=== PATIENT | male | born 1950 | race Caucasian/White ===

== ENCOUNTER → 2020-09-12 | Outpatient (CLI) | payer OTHER, BC | LOC: GIR 16:21 | PROVIDERS: ATTEND Nurse Practitioner Family | DX: U07.1 COVID-19 (principal) | CPT/HCPCS: 84145; 87635 ==

== ENCOUNTER → 2020-09-26 | Outpatient (CLI) | payer OTHER, MEDICARE ==
[~2020-09-26] MED LIST: ACET-2267 PO; ASCO-262 PO; ASPI-1238 PO; ASPI-789 PO; CHOL10007 PO; FLUT1DIS26 INH; FURO20TA4 PO; HYDR200T46 PO; LOSA100T57 PO; METO50TA7 PO; RT-ALBUINH IH; TMSL.4C PO
== END ==
LOC: LABNPT 14:41
PROVIDERS: ATTEND Nurse Practitioner Family
DX: Z01.89 Encounter for other specified special examinations (principal)
CPT/HCPCS: 84145

== ENCOUNTER 2020-09-27 11:21 | Inpatient (IN) | payer BC, MEDICARE ==
[~2020-09-27] VITALS: Ht 182 cm; Wt 158.0 kg
[2020-09-27] MEDS ORDERED: ALPRAZolam 0.25 MG (XANAX) TAB PO PRN (11:30)
[2020-09-27] MEDS ORDERED: diphenhydrAMINE 25 MG TAB (BENADRYL) PO PRN (11:30)
[2020-09-27] MEDS ORDERED: LOPERAMIDE 2 MG (IMODIUM) TABLET PO PRN (11:30)
[2020-09-27] MEDS ORDERED: DOCUSATE SODIUM 100 MG (COLACE) CAP PO PRN (11:30)
[2020-09-27] MEDS ORDERED: ENOXAPARIN 100 MG/1 ML (LOVENOX) SYR SC SCH (11:30)
[2020-09-27] MEDS ORDERED: MEROPENEM 1,000 MG in WATER (STERILE) FOR INJECTION 20 ML IV SCH (11:30)
[2020-09-27] MEDS ORDERED: VANCOMYCIN INJECTION 0.1 MG in NS (IVPB) 250 ML IV SCH (11:30)
[2020-09-27] MEDS ORDERED: MELATONIN 3 MG TABLET PO PRN (11:30)
[2020-09-27] MEDS ORDERED: CALCIUM CARBONATE 500 MG (TUMS) TAB.CHEW PO PRN (11:30)
[2020-09-27] MEDS ORDERED: ACETAMINOPHEN 500 MG TAB (TYLENOL) PO PRN (11:30)
[2020-09-27] MEDS ORDERED: HYDROcodone/APAP 5 MG/325 MG (LORTAB) TAB PO PRN (11:30)
[2020-09-27] MEDS ORDERED: ONDANSETRON 4 MG/2 ML (SDV) Z0FRAN IVP PRN (11:30)
[2020-09-27] MEDS ORDERED: VANCOMYCIN 2000 MG/NS 500 ML IVPB IV NR ×2 (13:00)
--- NOTE | 2020-09-27 13:58 | History & Physical ---
History of Present Illness HPI/Chief Complaint CC: Impending respiratory failure [place] [facility] [place] HPI: This is a 69yoWM clinic patient of Dr Baumann who presented to [facility] [place] on [place]26[place] with dyspnea and reaccumulation of right sided pleural effusion. He had been hospitalized from 09/12-09/16 for COVID PNA had completed his abx and had done well for a few days after right sided pleural effusion drained by thoracentesis by Dr Thornton of 1.5 liters. He did not need O2 at [place] after he completed COVID-19 treatments. He did not previously wear O2 or use a CPAP although i t appears he has SATISH on my initial evaluation. Dr Phipps was consulted for thoracentesis after CT scan revealed multi-lobar PNA with severe large right sided pleural effusion. Unable to dion fluid spot with USG and considering his tachypnea and hypoxia and hypercapcnia he was assessed to need higher level of care and was transferred to [facility]. Dr Phipps was able to drain the effusion and obtain 3.5 liters out and ABG after that revealed improved lung expansion and will be on trial of biPAP. Patient maintained on Meropenem and Vanc empirically due to suspicion of HAP and effusion infection. Lovenox given BID vs Eliquis. No PE on CT angiogram. Source: patient Exam Limitations: clinical condition Date Seen 09/27/20 Time Seen by a Provider: 14:00 Attending Physician Stefany Hopson DO PCP No,Local Physician Referring Physician Date of Admission Sep 27, 2020 at 12:16 Home Medications & Allergies Home Medications Reviewed patient Home Medication Reconciliation performed by pharmacy medication reconciliations maintenance technician 2nd shift and/or nursing. Patients Allergies have been reviewed. Allergies Allergies Coded Allergies No Allergy Information Available (Hcsexcspgh87/24/20) Past Ambblyr-Gtxzvu-Hkywlg Hx Past Med/Social Hx: Reviewed Nursing Past Med/Soc Hx, Reviewed and Corrections made Patient Social History Marrital Status: Employed/Student: retired Alcohol Use: Denies Use Smoking Status: Never a Smoker Past Medical History Cardiac: High Cholesterol, Hypertension Genitourinary: Benign Prostatic Hyperpl SLE Review of Systems Constitutional: see HPI Respiratory: dyspnea on exertion, short of breath Physical Exam Physical Exam Vital Signs Vital Signs - First Documented 09/27/20 09/27/20 09/27/20 13:52 14:00 16:00 Temp 36.1 Pulse 98 Resp 22 B/P (MAP) 169/105 (126) Pulse Ox 92 O2 Delivery High Flow N/C O2 Flow Rate 10.00 FiO2 40 Capillary Refill : Height, Weight, BMI Height: '" Weight: lbs. oz. kg; 49.72 BMI Method: General Appearance: Anxious, Chronically ill, Mild Distress, Obese Respiratory: Accessory Muscle Use, Decreased Breath Sounds, Rales Cardiovascular: Regular Rate, Rhythm Neurologic/Psychiatric: Alert, Oriented x3, No Motor/Sensory Deficits, Normal Mood/Affect Results Results/Procedures Labs Laboratory Tests 09/27/20 15:20 09/28/20 04:00 Patient resulted labs reviewed. Assessment/Plan Admission Diagnosis Assessment: Impending respiratory failure from multi-lobar PNA residual form COVID-19 admitted 09/12/20-09/16/20 s/p thoracentesis for large right sided pleural effusion 3.[address] Phipps Presumed SATISH Hypoxia Hypercapnia Obesity HTN SLE BPH Plan: Await effusion fluid Cx Monitor O2 BiPAP Abx Lovenox Admission Status: Inpatient Order (span 2 midnights) Reason for Inpatient Admission: resp failure Diagnosis/Problems Diagnosis/Problems (1) Respiratory insufficiency (2) COVID-19 (3) Obesity (4) Hypoxia (5) Hypercapnia (6) Pleural effusion on right (7) SLE (systemic lupus erythematosus related syndrome) (8) Hypertension STEFANY HOPSON DO Sep 27, 2020 13:58
[2020-09-27] MEDS: NS IV 1000 ML 1,000 ML IV SCH (14:04)
[2020-09-27] MEDS: MEROPENEM 500 MG/SWFI 10 ML IV PUSH IV SCH ×4 (14:05→17:25)
[2020-09-27 14:25] VITALS: BP 169/105
[2020-09-27 14:29] VITALS: BP 143/97
[2020-09-27 14:31] LABS: ABG BASE EXCESS -3.2 MMOL/L (-2.5-2.5); ABG OXYGEN SATURATION 94 % (94-100); ABG PCO2 45 MMHG (35-45); ABG PO2 73 MMHG (79-93); ABG TCO2 23.7 MMOL/L (21.0-31.0)
[2020-09-27 14:35] LABS: ABG PH 7.31 (7.37-7.43); ALLENS TEST YES-POS; INSPIRED O2 10L; PATIENT TEMP 36.1; VENTILATOR NO
[2020-09-27] MEDS: ENOXAPARIN 300 MG/3 ML (LOVENOX) MULTI-DOSE VIAL SQ SCH (14:37)
[2020-09-27] MEDS ORDERED: METO50TA7 PO (15:26)
[2020-09-27] MEDS ORDERED: TMSL.4C PO (15:26)
[2020-09-27] MEDS ORDERED: ACET-2267 PO (15:26)
[2020-09-27] MEDS ORDERED: ASPI-789 PO (15:26)
[2020-09-27] MEDS ORDERED: CHOL10007 PO (15:26)
[2020-09-27] MEDS ORDERED: HYDR200T46 PO (15:26)
[2020-09-27] MEDS ORDERED: RT-ALBUINH IH (15:26)
[2020-09-27] MEDS ORDERED: FURO20TA4 PO (15:26)
[2020-09-27] MEDS ORDERED: FLUT1DIS26 INH (15:26)
[2020-09-27] MEDS ORDERED: ASPI-1238 PO (15:26)
[2020-09-27] MEDS ORDERED: ASCO-262 PO (15:26)
[2020-09-27] MEDS ORDERED: LOSA100T57 PO (15:26)
--- NOTE | 2020-09-27 15:27 | NUR ---
UNABLE TO SPEAK WITH THE PT- I WAS ABLE TO CALL HIS (EMILIA) AND WENT THRU THE EXT MED HISTORY TO COMPLETE THE MED REC EMILIA WAS ABLE TO NAME ALL THE PTS MEDICATIONS WELL WHEN/HOW HE TAKES EACH- ALL HER INFORMATION MATCHED THE EXT MED HISTORY ADVAIR 250/50 AND ALBUTEROL HFA WERE BOTH GIVEN TO THE PT WHEN HE WAS PREVIOUSLY DISCHARGED FROM [facility] OTC MEDS: ASPIRIN 81MG VIT D VIT C TYLENOL- ACCORDING TO EMILIA THE PT TAKES 2 TABS EVERY NIGHT EXCEDRIN- ACCORDING TO EMILIA HE TAKES THIS EVERY MORNING
[2020-09-27 15:40] LABS: BASOPHILS % (AUTO) 0 % (0-10); EOSINOPHILS % (AUTO) 0 % (0-10); HEMATOCRIT 40 % (40-54); HEMOGLOBIN 12.2 g/dL (13.3-17.7); LYMPHOCYTES # (AUTO) 0.5 10^3/uL (1.0-4.0); LYMPHOCYTES % (AUTO) 6 % (12-44); MEAN CORPUSCULAR HEMOGLOBIN 28 pg (25-34); MEAN CORPUSCULAR HGB CONC 30 g/dL (32-36); MEAN CORPUSCULAR VOLUME 91 fL (80-99); MEAN PLATELET VOLUME 10.5 fL (9.0-12.2); MONOCYTES # (AUTO) 0.3 10^3/uL (0.0-1.0); MONOCYTES % (AUTO) 3 % (0-12); NEUTROPHILS % (AUTO) 90 % (42-75); PLATELET COUNT 184 10^3/uL (130-400); WHITE BLOOD COUNT 7.8 10^3/uL (4.3-11.0)
[2020-09-27 15:48] LABS: CHLORIDE 101 MMOL/L (98-107)
[2020-09-27 15:49] LABS: POTASSIUM 4.3 MMOL/L (3.6-5.0); SODIUM 133 MMOL/L (135-145)
[2020-09-27 15:50] LABS: CALCIUM 9.1 MG/DL (8.5-10.1)
[2020-09-27 15:51] LABS: GLUCOSE 104 MG/DL (70-105); TOTAL PROTEIN 6.3 GM/DL (6.4-8.2)
[2020-09-27 15:52] LABS: BAND NEUTROPHILS 3 %; BASOPHILS % (MANUAL) 0 %; CARBON DIOXIDE 20 MMOL/L (21-32); EOSINOPHILS % (MANUAL) 0 %; LYMPHOCYTES % (MANUAL) 5 %; MONOCYTES % (MANUAL) 2 %; NEUTROPHILS % (MANUAL) 90 %; RBC MORPH NORMAL
[2020-09-27 15:53] LABS: BILIRUBIN,TOTAL 0.6 MG/DL (0.1-1.0)
[2020-09-27 15:54] LABS: ALKALINE PHOSPHATASE 83 U/L (40-136)
--- NOTE | 2020-09-27 15:54 | Diagnostic Imaging Report ---
INDICATION: Needle aspiration procedure. There is no pneumothorax. When correlated with previous earlier CT, there is reduction in right pleural fluid volume. There is no pneumothorax. Bilateral pulmonary opacities . The heart is enlarged. IMPRESSION: No pneumothorax, post aspiration. Decreased pleural fluid. No adverse development apparent. Dictated by: Dictated on workstation # [id number]
[2020-09-27 15:55] LABS: CREATININE SERUM 1.09 MG/DL (0.60-1.30); GFR ESTIMATED > 60
[2020-09-27 15:56] LABS: BUN/CREATININE RATIO 18
[2020-09-27 15:57] LABS: ALANINE AMINOTRANSFERASE 28 U/L (0-55)
[2020-09-27] MEDS ORDERED: RT-ALBUTEROL INHALER HFA (VENTOLIN HFA) 18 GM IH PRN (16:00)
[2020-09-27] MEDS: FUROSEMIDE 40 MG/4 ML INJ (LASIX) IVP SCH (17:25)
[2020-09-27] MEDS: methylPREDNISolone 40 MG/ML (Solu-MEDROL) VIAL IV SCH (19:51)
[2020-09-27] MEDS: SENNA W/DOCUSATE (SENOKOT S) TABLET PO SCH (19:52)
--- NOTE | 2020-09-27 21:16 | Progress Note - Surgery ---
Subjective Date Seen by a Provider: Sep 27, 2020 Time Seen by a Provider: 13:00 Subjective/Events-last exam Patient seen earlier in [facility]. Unable to visualize right pleural effsuion with u/s. Having worsening breathing and was transferred to [facility]. Patient plan to have CT guided thoracentesis. Covid +. Requiring 10L high flow O2. Denies n/v fever sweats chills or chest pain at this time. Objective Exam Vital Signs Date Time Temp Pulse Resp B/P (MAP) Pulse Ox O2 Delivery O2 Flow Rate FiO2 09/27/20 20:30 High Flow N/C 4.00 09/27/20 20:00 94 High Flow N/C 4.00 09/27/20 19:54 36.3 09/27/20 19:00 73 09/27/20 18:10 95 High Flow N/C 9.00 09/27/20 18:00 80 20 169/102 (124) 95 Nasal Cannula 10.00 09/27/20 17:00 71 16 126/86 (99) 97 NIV Bilevel 40.00 09/27/20 16:00 97 NIV Bilevel 40 09/27/20 16:00 74 16 144/89 (107) 97 NIV Bilevel 40.00 09/27/20 16:00 37.1 09/27/20 15:00 82 17 119/82 (94) 97 NIV Bilevel 40.00 09/27/20 14:49 100 NIV Bilevel 09/27/20 14:29 84 19 100 40.00 09/27/20 14:25 36.1 90 92 09/27/20 14:00 36.1 90 22 169/105 (126) 92 High Flow N/C 10.00 09/27/20 13:52 98 Capillary Refill : General Appearance: No Apparent Distress, Chronically ill, Obese HEENT: PERRL/EOMI, Normal ENT Inspection Neck: Non Tender, Supple Respiratory: Chest Non Tender, Other (slightly labored b reathing) Cardiovascular: Regular Rate, Rhythm, No JVD Gastrointestinal: non tender, soft; No guarding, No rebound, No tenderness Extremity: Non Tender, Other (sliightly decreased rom) Neurologic/Psychiatric: Alert, Oriented x3 Skin: Normal Color, Warm/Dry Results Lab Laboratory Tests 09/27/20 14:25: Blood Gas Puncture Site L RAD, Blood Gas Patient Temperature 36.1, Arterial Blood pH 7.31*L, Arterial Blood Partial Pressure CO2 45, Arterial Blood Partial Pressure O2 73L, Arterial Blood HCO3 22L, Arterial Blood Total CO2 23.7, Arterial Blood Oxygen Saturation 94, Arterial Blood Base Excess -3.2L, Kenji Test YES-POS, Blood Gas Ventilator Setting NO, Blood Gas Inspired Oxygen 10L 09/27/20 15:20: White Blood Count 7.8, Red Blood Count 4.44, Hemoglobin 12.2L, Hematocrit 40, Mean Corpuscular Volume 91, Mean Corpuscular Hemoglobin 28, Mean Corpuscular Hemoglobin Concent 30L, Red Cell Distribution Width 14.6H, Platelet Count 184, Mean Platelet Volume 10.5, Immature Granulocyte % (Auto) 1, Neutrophils (%) (Auto) 90H, Lymphocytes (%) (Auto) 6L, Monocytes (%) (Auto) 3, Eosinophils (%) (Auto) 0, Basophils (%) (Auto) 0, Neutrophils # (Auto) 7.0, Lymphocytes # (Auto) 0.5L, Monocytes # (Auto) 0.3, Eosinophils # (Auto) 0.0, Basophils # (Auto) 0.0, Immature Granulocyte # (Auto) 0.1, Neutrophils % (Manual) 90, Lymphocytes % (Manual) 5, Monocytes % (Manual) 2, Eosinophils % (Manual) 0, Basophils % (Manual) 0, Band Neutrophils 3, Blood Morphology Comment NORMAL, Sodium Level 133L, Potassium Level 4.3, Chloride Level 101, Carbon Dioxide Level 20L, Anion Gap 12, Blood Urea Nitrogen 20H, Creatinine 1.09, Estimat Glomerular Filtration Rate > 60, BUN/Creatinine Ratio 18, Glucose Level 104, Calcium Level 9.1, Corrected Calcium 9.9, Total Bilirubin 0.6, Aspartate Amino Transf (AST/SGOT) 26, Alanine Aminotransferase (ALT/SGPT) 28, Alkaline Phosphatase 83, Total Protein 6.3L, Albumin 3.0L Assessment/Plan Assessment/Plan Assessment/Plan left lung pneumonia large right pleural effusion covid + shortness of breath lympadenopathy of chest/mediastinum patient to have ct guided right thoracentesis has lymphadenopathy axilla/chest will need further work up once improved enough to have further workup will sign off at this time, have appointment for follow up, call if needed. Clinical Quality Measures DVT/VTE Risk/Contraindication: Risk Factor Score Per Nursin RFS Level Per Nursing on Admit: 3=High JAREN MCCRACKEN DO Sep 27, 2020 21:16
[2020-09-27] MEDS: RT-ALBUTEROL INHALER HFA (VENTOLIN HFA) 18 GM IH SCH (21:26)
[2020-09-28 01:25] VITALS: BP 137/76
[2020-09-28] MEDS: MEROPENEM 500 MG/SWFI 10 ML IV PUSH IV SCH ×8 (02:28→17:12)
[2020-09-28] MEDS: ENOXAPARIN 300 MG/3 ML (LOVENOX) MULTI-DOSE VIAL SQ SCH ×2 (02:28→12:24)
[2020-09-28] MEDS: NS IV 1000 ML 1,000 ML IV SCH (02:31)
[2020-09-28 02:52] LABS: ABG BASE EXCESS -3.4 MMOL/L (-2.5-2.5); ABG OXYGEN SATURATION 97 % (94-100); ABG PCO2 42 MMHG (35-45); ABG PO2 88 MMHG (79-93); ABG TCO2 23.1 MMOL/L (21.0-31.0)
[2020-09-28 02:57] LABS: ABG PH 7.35 (7.37-7.43); ALLENS TEST YES-POS; INSPIRED O2 40%; PATIENT TEMP 35.8; VENTILATOR NO
[2020-09-28 04:17] LABS: BASOPHILS % (AUTO) 0 % (0-10); EOSINOPHILS % (AUTO) 0 % (0-10); HEMATOCRIT 40 % (40-54); HEMOGLOBIN 12.3 g/dL (13.3-17.7); LYMPHOCYTES # (AUTO) 0.4 10^3/uL (1.0-4.0); LYMPHOCYTES % (AUTO) 5 % (12-44); MEAN CORPUSCULAR HEMOGLOBIN 28 pg (25-34); MEAN CORPUSCULAR HGB CONC 31 g/dL (32-36); MEAN CORPUSCULAR VOLUME 89 fL (80-99); MEAN PLATELET VOLUME 10.6 fL (9.0-12.2); MONOCYTES # (AUTO) 0.4 10^3/uL (0.0-1.0); MONOCYTES % (AUTO) 4 % (0-12); NEUTROPHILS # (AUTO) 7.8 10^3/uL (1.8-7.8); NEUTROPHILS % (AUTO) 90 % (42-75); PLATELET COUNT 176 10^3/uL (130-400); WHITE BLOOD COUNT 8.7 10^3/uL (4.3-11.0)
[2020-09-28 04:26] LABS: CHLORIDE 101 MMOL/L (98-107); POTASSIUM 4.4 MMOL/L (3.6-5.0); SODIUM 132 MMOL/L (135-145)
[2020-09-28 04:27] LABS: CALCIUM 8.7 MG/DL (8.5-10.1)
[2020-09-28 04:28] LABS: GLUCOSE 115 MG/DL (70-105)
[2020-09-28 04:29] LABS: CARBON DIOXIDE 19 MMOL/L (21-32)
[2020-09-28 04:32] LABS: CREATININE SERUM 1.13 MG/DL (0.60-1.30); GFR ESTIMATED > 60; PHOSPHORUS 3.4 MG/DL (2.3-4.7)
[2020-09-28 04:33] LABS: BUN/CREATININE RATIO 21
[2020-09-28 04:35] LABS: MAGNESIUM 2.3 MG/DL (1.6-2.4)
[2020-09-28] MEDS ORDERED: TROUGH ORDER-PHARMACY XX NR ×2 (07:00→15:00)
[2020-09-28] MEDS: RT-ALBUTEROL INHALER HFA (VENTOLIN HFA) 18 GM IH SCH ×2 (07:47→20:07)
[2020-09-28] MEDS: FUROSEMIDE 40 MG/4 ML INJ (LASIX) IVP SCH ×2 (08:26→17:12)
[2020-09-28] MEDS: methylPREDNISolone 40 MG/ML (Solu-MEDROL) VIAL IV SCH ×2 (08:27→19:57)
[2020-09-28] MEDS: SENNA W/DOCUSATE (SENOKOT S) TABLET PO SCH ×2 (08:27→19:57)
--- NOTE | 2020-09-28 09:00 | Diagnostic Imaging Report ---
Clinical indications: Patient with dyspnea. Exam: Portable chest x-ray upright view. Comparisons: Chest x-ray dated 09/27/2020. Findings: Stable bilateral lung infiltrates with the right lung base and left midlung field affected the most. There is no pleural effusion or pneumothorax. Stable cardiomegaly with no significant pulmonary vascular congestion. The remainder of this exam shows no significant interval change compared to the prior study of comparison. IMPRESSION: Stable bilateral lung infiltrates. Dictated by: Dictated on workstation # [id number]
--- NOTE | 2020-09-28 11:40 | Progress Note - Hospitalist ---
Subjective HPI/CC On Admission Date Seen by Provider: Sep 28, 2020 Time Seen by Provider: 10:00 CC: Impending respiratory failure transferred [place] [facility] [place] HPI: This is a 69yoWM clinic patient of Dr Baumann who presented to [facility] [place] 09/26/20 with dyspnea and reaccumulation of right sided pleural effusion. He had been hospitalized from 09/12-09/16 for COVID PNA had completed his abx and had done well for a few days after right sided pleural effusion drained by thoracentesis by Dr Thornton of 1.5 liters. He did not need O2 at [place] after he completed COVID-19 treatments. He did not previously wear O2 or use a CPAP although i t appears he has SATISH on my initial evaluation. Dr Phipps was consulted for thoracentesis after CT scan revealed multi-lobar PNA with severe large right sided pleural effusion. Unable to dion fluid spot with USG and considering his tachypnea and hypoxia and hypercapcnia he was assessed to need higher level of care and was transferred to [facility]. Dr Phipps was able to drain the effusion and obtain 3.5 liters out and ABG after that revealed improved lung expansion and will be on trial of biPAP. Patient maintained on Meropenem and Vanc empirically due to suspicion of HAP and effusion infection. Lovenox given BID vs Eliquis. No PE on CT angiogram. Subjective/Events-last exam Dramatic improvement Patient slept well last night BiPAP was extremely well tolerated and he wants one to go home with O2 maintained No tachypnea Monitor effusion right side Abx maintained Review of Systems General: Fatigue Pulmonary: Dyspnea Objective Exam Vital Signs Vital Signs Date Time Temp Pulse Resp B/P (MAP) Pulse Ox O2 Delivery O2 Flow Rate FiO2 09/29/20 06:00 58 12 156/80 (105) 94 NIV Bilevel 35.00 09/28/20 23:51 35.9 09/28/20 04:00 40 Capillary Refill : General Appearance: No Apparent Distress, WD/WN, Chronically ill Respiratory: No Accessory Muscle Use, No Respiratory Distress, Decreased Breath Sounds Cardiovascular: Regular Rate, Rhythm Neurologic/Psychiatric: Alert, Oriented x3, No Motor/Sensory Deficits, Normal Mood/Affect Results/Procedures Lab Laboratory Tests 09/29/20 03:07 Patient resulted labs reviewed. Assessment/Plan Assessment and Plan Assess & Plan/Chief Complaint Assessment: Impending respiratory failure from multi-lobar PNA residual form COVID-19 admitted 09/12/20-09/16/20 s/p thoracentesis for large right sided pleural effusion 3.[address] Phipps Presumed SATISH Hypoxia Hypercapnia Obesity HTN SLE BPH Plan: Await effusion fluid Cx Monitor O2 BiPAP Abx Lovenox 09/28/20: Await effusion results Dramatically improved Updated Diagnosis/Problems Diagnosis/Problems (1) Respiratory insufficiency (2) COVID-19 (3) Obesity (4) Hypoxia (5) Hypercapnia (6) Pleural effusion on right (7) SLE (systemic lupus erythematosus related syndrome) (8) Hypertension Clinical Quality Measures DVT/VTE Risk/Contraindication: Risk Factor Score Per Nursin RFS Level Per Nursing on Admit: 3=High ISI HOPSON DO Sep 28, 2020 11:40
--- NOTE | 2020-09-28 16:30 | NUR ---
VANCOMYCIN LEVEL 18.7 09/28 @ 1517. RESTART VANCOMYCIN 1500MG Q24H. WILL CHECK ANOTHER VANCOMYCIN LEVEL 09/30 @ 1500. IF TROUGH >20, HOLD DOSE & NOTIFY PHARMACY FOR ADJUSTMENTS.
[2020-09-28] MEDS: VANCOMYCIN 1500 MG/NS 500 ML IVPB IV SCH ×2 (17:13)
[2020-09-29] MEDS: ENOXAPARIN 300 MG/3 ML (LOVENOX) MULTI-DOSE VIAL SQ SCH ×2 (00:28→12:44)
[2020-09-29] MEDS: MEROPENEM 500 MG/SWFI 10 ML IV PUSH IV SCH ×8 (00:28→19:47)
[2020-09-29 03:57] LABS: BASOPHILS % (AUTO) 0 % (0-10); EOSINOPHILS % (AUTO) 0 % (0-10); HEMATOCRIT 40 % (40-54); HEMOGLOBIN 12.6 g/dL (13.3-17.7); LYMPHOCYTES # (AUTO) 0.4 10^3/uL (1.0-4.0); LYMPHOCYTES % (AUTO) 4 % (12-44); MEAN CORPUSCULAR HEMOGLOBIN 27 pg (25-34); MEAN CORPUSCULAR HGB CONC 31 g/dL (32-36); MEAN CORPUSCULAR VOLUME 86 fL (80-99); MEAN PLATELET VOLUME 11.1 fL (9.0-12.2); MONOCYTES # (AUTO) 0.4 10^3/uL (0.0-1.0); MONOCYTES % (AUTO) 4 % (0-12); NEUTROPHILS # (AUTO) 8.2 10^3/uL (1.8-7.8); NEUTROPHILS % (AUTO) 92 % (42-75); PLATELET COUNT 193 10^3/uL (130-400); WHITE BLOOD COUNT 8.9 10^3/uL (4.3-11.0)
[2020-09-29 04:10] LABS: CHLORIDE 102 MMOL/L (98-107); POTASSIUM 4.4 MMOL/L (3.6-5.0); SODIUM 133 MMOL/L (135-145)
[2020-09-29 04:12] LABS: CALCIUM 8.7 MG/DL (8.5-10.1); GLUCOSE 171 MG/DL (70-105)
[2020-09-29 04:14] LABS: CARBON DIOXIDE 21 MMOL/L (21-32)
[2020-09-29 04:16] LABS: CREATININE SERUM 1.18 MG/DL (0.60-1.30); GFR ESTIMATED > 60; PHOSPHORUS 2.1 MG/DL (2.3-4.7)
[2020-09-29 04:17] LABS: BUN/CREATININE RATIO 28
[2020-09-29 04:18] LABS: MAGNESIUM 2.3 MG/DL (1.6-2.4)
[2020-09-29] MEDS: FUROSEMIDE 40 MG/4 ML INJ (LASIX) IVP SCH ×2 (06:25→19:47)
--- NOTE | 2020-09-29 07:23 | Progress Note - Hospitalist ---
Subjective HPI/CC On Admission Date Seen by Provider: Sep 29, 2020 Time Seen by Provider: 12:00 CC: Impending respiratory failure transferred from [facility] [place] for higher level of care HPI: This is a 69yoWM clinic patient of Dr Bamuann who presented to [facility] [place] on 09/26/20 with dyspnea and reaccumulation of right sided pleural effusion. He had been hospitalized from 09/12-09/16 for COVID PNA had completed his abx and had done well for a few days after right sided pleural effusion drained by thoracentesis by Dr Thornton of 1.5 liters. He did not need O2 at [place] after he completed COVID-19 treatments. He did not previously wear O2 or use a CPAP although i t appears he has SATISH on my initial evaluation. Dr Phipps was consulted for thoracentesis after CT scan revealed multi-lobar PNA with severe large right sided pleural effusion. Unable to dion fluid spot with USG and considering his tachypnea and hypoxia and hypercapcnia he was assessed to need higher level of care and was transferred to [facility]. Dr Phipps was able to drain the effusion and obtain 3.5 liters out and ABG after that revealed improved lung expansion and will be on trial of biPAP. Patient maintained on Meropenem and Vanc empirically due to suspicion of HAP and effusion infection. Lovenox given BID vs Eliquis. No PE on CT angiogram. Subjective/Events-last exam Dramatic improvement in status CXR reviewed Labs reviewed No pain BiPAP at night O2 maintained Review of Systems General: Fatigue, Malaise Objective Exam Vital Signs Vital Signs Date Time Temp Pulse Resp B/P (MAP) Pulse Ox O2 Delivery O2 Flow Rate FiO2 09/29/20 19:14 94 High Flow N/C 4.00 09/29/20 15:49 37.2 75 22 186/92 (123) 09/28/20 04:00 40 Capillary Refill : General Appearance: No Apparent Distress, WD/WN, Chronically ill, Obese Cardiovascular: Regular Rate, Rhythm, No Edema, No Gallop, No JVD, No Murmur, N ormal Peripheral Pulses Gastrointestinal: Normal Bowel Sounds, No Organomegaly, No Pulsatile Mass, Non Tender, Soft Neurologic/Psychiatric: Alert, Oriented x3, No Motor/Sensory Deficits, Normal Mood/Affect Results/Procedures Lab Laboratory Tests 09/29/20 03:07 Patient resulted labs reviewed. Assessment/Plan Assessment and Plan Assess & Plan/Chief Complaint Assessment: Impending respiratory failure from multi-lobar PNA residual form COVID-19 admitted 09/12/20-09/16/20 s/p thoracentesis for large right sided pleural effusion 3.[address] Phipps Presumed SATISH Hypoxia Hypercapnia Obesity HTN SLE BPH Plan: Await effusion fluid Cx Monitor O2 BiPAP Abx Lovenox 09/28/20: Await effusion results Dramatically improved Updated 09/29/20: Monitor CXR O2 Labs Move to 4th Diagnosis/Problems Diagnosis/Problems (1) Respiratory insufficiency (2) COVID-19 (3) Obesity (4) Hypoxia (5) Hypercapnia (6) Pleural effusion on right (7) SLE (systemic lupus erythematosus related syndrome) (8) Hypertension Clinical Quality Measures DVT/VTE Risk/Contraindication: Risk Factor Score Per Nursin RFS Level Per Nursing on Admit: 3=High ISI HOPSON DO Sep 29, 2020 07:23
[2020-09-29] MEDS: RT-ALBUTEROL INHALER HFA (VENTOLIN HFA) 18 GM IH SCH ×2 (08:01→19:14)
--- NOTE | 2020-09-29 08:19 | Diagnostic Imaging Report ---
EXAM: CHEST 1 VIEW, AP/PA ONLY INDICATION: Dyspnea. COMPARISON: Chest radiograph 09/28/2020. FINDINGS: Diffuse interstitial and airspace opacities are similar to the prior exam. Stable heart size. Probable small right pleural effusion. No pneumothorax. No acute osseous findings. IMPRESSION: Overall stable diffuse bilateral airspace opacities. Probable small right pleural effusion. Dictated by: Dictated on workstation # [id number]
[2020-09-29] MEDS: methylPREDNISolone 40 MG/ML (Solu-MEDROL) VIAL IV SCH ×2 (08:46→21:16)
[2020-09-29] MEDS: SENNA W/DOCUSATE (SENOKOT S) TABLET PO SCH ×2 (08:46→19:59)
--- NOTE | 2020-09-29 09:51 | Occupational Therapy Eval ---
OT Evaluation-General/PLF Medical Diagnosis Admission Date Sep 27, 2020 at 12:16 Medical Diagnosis: COVID+, PE Onset Date: Sep 27, 2020 Therapy Diagnosis Therapy Diagnosis: decreased functional endurance Precautions Precautions/Isolations: Airborne Isolation Medical History Additional Medical History Cardiac: High Cholesterol, Hypertension Genitourinary: Benign Prostatic Hyperpl SLE Current History Pt to [facility] [place] 09/26/2020 with dyspnea and reaccumulation of R side pleural effusion, transferred to [facility] 09/27 for higher level of care. Recently hospitalized 09/12-09/16 for COVID PNA. Social History Home: Single Level Current Living Status: Spouse ADL-Prior Level of Function SCALE: Activities may be completed with or without assistive devices. 0-Mbmjdnfszi-lysnxho completes the activity by him/herself with no assistance from a helper. 5-Set-up or Clean-up Assistance-helper sets up or cleans up; patient completes activity. [place] assists only prior to or following the activity. 4-Supervision or Touching Assistance-helper provides verbal cues and/or touching/steadying and/or contact guard assistance as patient completes activity. Assistance may be provided throughout the activity or intermittently. 3-Partial/Moderate Assistance-helper does LESS THAN HALF the effort. [place] lifts, holds or supports trunk or limbs, but provides less than half the effort. 2-Substantial/Maximal Assistance-helper does MORE THAN HALF the effort. [place] lifts or holds trunk or limbs and provides more than half the effort. 0-Kkiaohpmx-wtgdhm does ALL the effort. Patient does none of the effort to complete the activity. Or, the assistance of 2 or more helpers is required for the patient to complete the activity. If activity was not attempted, code reason: 7-Patient Refused. 9-Not Applicable-not attempted and the patient did not perform the activity before the current illness, exacerbation or injury. 10-Not Attempted due to Environmental Limitations-(lack of equipment, weather restraints, etc.). 88-Not Attempted due to Medical Conditions or Safety Concerns. ADL PLOF Comments Pt indicates he was independent with bathing and dressing at PLOF, and independent with functional mobility using walker and BLE braces due to foot drop. Pt's completes the cooking and cleaning. Self Care: Independent Functional Cognition: Independent OT Current Status Subjective Pt laying in bed, agreeable to OT evaluation and tx. Mental Status/Objective Patient Orientation: Person, Place, Time, Situation Attachments: Oxygen Current Glasses/Contacts: Yes Upper Extremity ROM WFL, BUE shoulder flexion to approx 160 degrees Upper Extremity Coordination WFL Upper Extremity Sensation WFL Upper Extremity Strength WFL ADL-Treatment Eating (QC): 6 (Per pt report and clinical judgement, pt independent with task.) Other Treatments OT educated pt on purpose and benefit of OT, he verbalized understanding. Pt provided information about PLOF and home set up, and participated in UE screen. Pt indicates his main concern is endurance right now, he feels like he would be able to complete self care tasks fine. In order to increase functional endurance, pt completed x15 reps AROM, BUE of the following exercises: shoulder flexion, elbow flexion/extension, wrist flexion/extension, and finger flexion/extension. With shoulder flexion, pt's O2 sat dropped to 85%, he stopped exercising and focused on breathing, his O2 returned to the 90%'s within a few seconds. Pt's O2 saturation remained in the 90%'s with the remainder of exercises. Post OT tx, pt laying in bed, call light in reach and all needs met. Education OT Patient Education: Correct positioning, Energy conservation, Exercise program, Modified ADL techniques, Progress toward Goal/Update tx plan, Purpose of tx/functional activities, Rehab process Teaching Recipient: Patient Teaching Methods: Discussion Response to Teaching: Verbalize Understanding OT Mcfp Goals Focusing Machine Operator Goals Time Frame: Oct 12, 2020 Eating (QC): 6 Oral Hygiene (QC): 6 Toileting Hygiene (QC): 6 Shower/Bathe Self (QC): 6 Upper Body Dressing (QC): 6 Lower Body Dressing (QC): 6 On/Off Footwear (QC): 6 1=Demonstrate adherence to instructed precautions during ADL tasks. 2=Patient will verbalize/demonstrate understanding of assistive devices/modifications for ADL. 3=Patient will improve strength/tolerance for activity to enable patient to perform ADL's. OT Education/Plan Problem List/Assessment Assessment: Decreased Activ Tolerance, Impaired I ADL's Pt would benefit from skilled OT in order to increase functional endurance and safety with ADLs/functional mobility to maximize LOF to safely return home. Discharge Recommendations Plan/Recommendations: Continue POC Therapy Discharge Recommendati: Home & Family Treatment Plan/Plan of Care Patient would benefit from OT for education, treatment and training to promote independence in ADL's, mobility, safety and/or upper extremity function for ADL's. Plan of Care: ADL Retraining, Functional Mobility, UE Funct Exercise/Act Treatment Duration: Oct 12, 2020 Frequency: 5 times per week Estimated Hrs Per Day: .25 hour per day Agreement: Yes Rehab Potential: Good Time/GCodes Start Time: 09:13 Stop Time: 09:27 Total Time Billed (hr/min): 14 Billed Treatment Time 1, LIBORIO COSTA OT Sep 29, 2020 09:50
--- NOTE | 2020-09-29 11:34 | Physical Therapy Evaluation ---
PT Evaluation-General Medical Diagnosis Admission Date Sep 27, 2020 at 12:16 Medical Diagnosis: COVID+, PE Onset Date: Sep 27, 2020 Therapy Diagnosis Therapy Diagnosis: unsteady gait Precautions Precautions/Isolations: Airborne Isolation Weight Bear Status Full Weight Bearing Full Weight Bearing Referral Reason for Referral: Evaluation/Treatment Medical History Additional Medical History lupas Current History Patient hospitalized 09/12 through 09/16 with COVID and pneumonia. Patient was readmitted 09/26 with dyspnea and right side pleaural effusion. He has respiratory failure with muli lobar pneumonia. Social History Home: Multilevel Current Living Status: Spouse Entry Into Home: Stairs With Railing Prior Prior Level of Function SCALE: Activities may be completed with or without assistive devices. 0-Vzoiwtozry-zejzafq completes the activity by him/herself with no assistance from a helper. 5-Set-up or Clean-up Assistance-helper sets up or cleans up; patient completes activity. [place] assists only prior to or following the activity. 4-Supervision or Touching Assistance-helper provides verbal cues and/or touching/steadying and/or contact guard assistance as patient completes activity. Assistance may be provided throughout the activity or intermittently. 3-Partial/Moderate Assistance-helper does LESS THAN HALF the effort. [place] lifts, holds or supports trunk or limbs, but provides less than half the effort. 2-Substantial/Maximal Assistance-helper does MORE THAN HALF the effort. [place] lifts or holds trunk or limbs and provides more than half the effort. 0-Zlparmpdj-njnjlr does ALL the effort. Patient does none of the effort to complete the activity. Or, the assistance of 2 or more helpers is required for the patient to complete the activity. If activity was not attempted, code reason: 7-Patient Refused. 9-Not Applicable-not attempted and the patient did not perform the activity before the current illness, exacerbation or injury. 10-Not Attempted due to Environmental Limitations-(lack of equipment, weather restraints, etc.). 88-Not Attempted due to Medical Conditions or Safety Concerns. Bed Mobility: 6 Transfers (B,C,W/C): 6 Gait: 6 Stairs: 5 Indoor Mobility (Ambulation): Independent Stairs: Independent Prior Devices Use: Manual wheelchair, Walker Prior Device Use: Has used (B) AFOs, walker, and intermittent w/c for greater than 2 yrs PT Evaluation-Current Subjective Pt reports he was re-admitted to the hospital due to return of shortness of breath. Objective Patient Orientation: Normal For Age ROM/Strength ROM Upper Extremities WFL ROM Lower Extremities WFL; exception no active DF Strength Upper Extremities WFL Strength Lower Extremities Gross 4/5 with exception of trace DF (B) Sensory Vision: Functional Hearing: Functional Transfers Roll Left to Right (QC): 4 Patient did not want to get out of bed due to shortness of breath as well as complaint of swelling in the scrotum being uncomfortable. Assessment/Needs Patient is alert and motivated to improve. He indicates his strength feels at near normal levels. At time of assessment he did request not to get out of bed due to shortness of breath and swelling of the scrotum. Patient has good potential to achieve prior level of function and dismissal to home with his . Rehab Potential: Good PT Short Term Goals Short Term Goals Time Frame: Oct 03, 2020 Roll Left & Right: 5 Sit to lyin Lying to sitting on side of be: 5 Sit to stand: 5 Chair/vxu-pk-mpuza transfer: 5 Walk 10 feet: 5 Walk 50 feet with two turns: 5 PT Church Organist Goals Church Organist Goals PT Church Organist Goals Time Frame: Oct 06, 2020 Roll Left & Right (QC): 6 Sit to Lying (QC): 6 Lying-Sitting on Side/Bed(QC): 6 Sit to Stand (QC): 6 Chair/Xtp-fk-Daopy Xfer(QC): 6 Walk 50ft with 2 Turns (QC): 5 PT Plan Problem List Problem List: Activity Tolerance, Functional Strength, Safety, Balance, Gait, Bed Mobility Treatment/Plan Treatment Plan: Continue Plan of Care Treatment Plan: Bed Mobility, Education, Functional Strength, Gait, Therapeutic Exercise Treatment Duration: Oct 06, 2020 Frequency: 6 times per week Discharge Recommendations Therapy Discharge Recommendati: Post Acute PT Time/GCodes Time In: 1045 Time Out: 1105 Total Billed Treatment Time: 20 Total Billed Treatment visit, evaluation moderate complexity MIRIAN TIAN PT Sep 29, 2020 11:34
[2020-09-29] MEDS ORDERED: RT-ALBUTEROL SULF 2.5 MG/3 ML PRE-MIX VIAL IH PRN (12:15)
[2020-09-29] MEDS: ADVAIR HFA 115/21 MCG INHALER 8 GM IH SCH (19:13)
[2020-09-29] MEDS ORDERED: WATER (STERILE) FOR INJECTION 10 ML ONE (19:32)
[2020-09-29] MEDS ORDERED: MEROPENEM 500 MG VIAL (MERREM) IV ONE (19:33)
[2020-09-29] MEDS: VANCOMYCIN 1500 MG/NS 500 ML IVPB IV SCH ×2 (19:47)
[2020-09-29] MEDS: ASPIRIN E.C. 81 MG (ECOTRIN) TAB PO SCH (21:16)
[2020-09-29] MEDS: HYDROXYCHLOROQUINE 200 MG (PLAQUENIL) TAB PO SCH (21:16)
[2020-09-29] MEDS: meTOproloL SUCCINATE 50 MG (TOPROL XL) TAB PO SCH (21:16)
[2020-09-29] MEDS: LOSARTAN 100 MG (COZAAR) TABLET PO SCH (21:16)
[2020-09-29] MEDS: TAMSULOSIN 0.4 MG (FLOMAX) CAP PO SCH (21:16)
[2020-09-29] MEDS: ACETAMINOPHEN 500 MG TAB (TYLENOL) PO SCH (21:17)
[2020-09-30] MEDS ORDERED: MEROPENEM 500 MG VIAL (MERREM) IV ONE ×4 (00:31→19:38)
[2020-09-30] MEDS ORDERED: WATER (STERILE) FOR INJECTION 10 ML ONE ×4 (00:31→19:38)
[2020-09-30 00:37] VITALS: BP 137/76
[2020-09-30] MEDS: ENOXAPARIN 300 MG/3 ML (LOVENOX) MULTI-DOSE VIAL SQ SCH ×2 (00:43→13:48)
[2020-09-30] MEDS: MEROPENEM 500 MG/SWFI 10 ML IV PUSH IV SCH ×8 (00:43→20:16)
[2020-09-30] MEDS: FUROSEMIDE 40 MG/4 ML INJ (LASIX) IVP SCH ×2 (06:19→16:10)
--- NOTE | 2020-09-30 06:32 | Progress Note - Hospitalist ---
Subjective HPI/CC On Admission Date Seen by Provider: Sep 30, 2020 Time Seen by Provider: 13:30 CC: Impending respiratory failure transferred from [facility] [place] for higher level of care HPI: This is a 69yoWM clinic patient of Dr Baumann who presented to [facility] [place] on 09/26/20 with dyspnea and reaccumulation of right sided pleural effusion. He had been hospitalized from 09/12-09/16 for COVID PNA had completed his abx and had done well for a few days after right sided pleural effusion drained by thoracentesis by Dr Thornton of 1.5 liters. He did not need O2 at DC after he completed COVID-19 treatments. He did not previously wear O2 or use a CPAP although i t appears he has SATISH on my initial evaluation. Dr Phipps was consulted for thoracentesis after CT scan revealed multi-lobar PNA with severe large right sided pleural effusion. Unable to dion fluid spot with USG and considering his tachypnea and hypoxia and hypercapcnia he was assessed to need higher level of care and was transferred to [facility]. Dr Phipps was able to drain the effusion and obtain 3.5 liters out and ABG after that revealed improved lung expansion and will be on trial of biPAP. Patient maintained on Meropenem and Vanc empirically due to suspicion of HAP and effusion infection. Lovenox given BID vs Eliquis. No PE on CT angiogram. Subjective/Events-last exam Much improved status O2 maintained PT OT tomorrow IRF? Wean O2 Monitor CXR Jorden and [place] seen for urinary issues and incontinence Review of Systems General: Fatigue Pulmonary: Dyspnea Genitourinary: Incontinence Objective Exam Vital Signs Vital Signs Date Time Temp Pulse Resp B/P (MAP) Pulse Ox O2 Delivery O2 Flow Rate FiO2 09/30/20 16:00 36.7 82 18 156/85 (108) 92 High Flow N/C 4.00 09/28/20 04:00 40 Capillary Refill : Less Than 3 Seconds General Appearance: No Apparent Distress, WD/WN, Chronically ill Respiratory: Chest Non Tender, Lungs Clear, Normal Breath Sounds, No Accessory Muscle Use, No Respiratory Distress Cardiovascular: Regular Rate, Rhythm, No Edema, No Gallop, No JVD, No Murmur, Normal Peripheral Pulses Neurologic/Psychiatric: Alert, Oriented x3, No Motor/Sensory Deficits, Normal Mood/Affect Results/Procedures Lab Laboratory Tests 09/30/20 06:47 Patient resulted labs reviewed. Assessment/Plan Assessment and Plan Assess & Plan/Chief Complaint Assessment: Impending respiratory failure from multi-lobar PNA residual form COVID-19 admitted 09/12/20-09/16/20 s/p thoracentesis for large right sided pleural effusion 3.[address] Phipps Presumed SATISH Hypoxia Hypercapnia Obesity HTN SLE BPH Plan: Await effusion fluid Cx Monitor O2 BiPAP Abx Lovenox 09/28/20: Await effusion results Dramatically improved Updated 09/29/20: Monitor CXR O2 Labs Move to 4th 09/30/20: PT OT tomorrow Monitor labs Diagnosis/Problems Diagnosis/Problems (1) Respiratory insufficiency (2) COVID-19 (3) Obesity (4) Hypoxia (5) Hypercapnia (6) Pleural effusion on right (7) SLE (systemic lupus erythematosus related syndrome) (8) Hypertension Clinical Quality Measures DVT/VTE Risk/Contraindication: Risk Factor Score Per Nursin RFS Level Per Nursing on Admit: 3=High ISI HOPSON DO Sep 30, 2020 06:32
[2020-09-30 07:00] LABS: BASOPHILS % (AUTO) 0 % (0-10); EOSINOPHILS % (AUTO) 0 % (0-10); HEMATOCRIT 41 % (40-54); HEMOGLOBIN 13.1 g/dL (13.3-17.7); LYMPHOCYTES # (AUTO) 0.4 10^3/uL (1.0-4.0); LYMPHOCYTES % (AUTO) 6 % (12-44); MEAN CORPUSCULAR HEMOGLOBIN 28 pg (25-34); MEAN CORPUSCULAR HGB CONC 32 g/dL (32-36); MEAN CORPUSCULAR VOLUME 86 fL (80-99); MEAN PLATELET VOLUME 10.7 fL (9.0-12.2); MONOCYTES # (AUTO) 0.4 10^3/uL (0.0-1.0); MONOCYTES % (AUTO) 6 % (0-12); NEUTROPHILS # (AUTO) 6.8 10^3/uL (1.8-7.8); NEUTROPHILS % (AUTO) 89 % (42-75); PLATELET COUNT 212 10^3/uL (130-400); WHITE BLOOD COUNT 7.6 10^3/uL (4.3-11.0)
[2020-09-30 07:10] LABS: CHLORIDE 101 MMOL/L (98-107); POTASSIUM 4.1 MMOL/L (3.6-5.0); SODIUM 132 MMOL/L (135-145)
[2020-09-30 07:12] LABS: CALCIUM 8.6 MG/DL (8.5-10.1)
[2020-09-30 07:13] LABS: GLUCOSE 143 MG/DL (70-105); TOTAL PROTEIN 6.4 GM/DL (6.4-8.2)
[2020-09-30 07:14] LABS: CARBON DIOXIDE 23 MMOL/L (21-32)
[2020-09-30 07:15] LABS: BILIRUBIN,TOTAL 0.8 MG/DL (0.1-1.0)
[2020-09-30 07:16] LABS: ALKALINE PHOSPHATASE 74 U/L (40-136); CREATININE SERUM 1.11 MG/DL (0.60-1.30); GFR ESTIMATED > 60
[2020-09-30 07:18] LABS: BUN/CREATININE RATIO 33
[2020-09-30 07:19] LABS: ALANINE AMINOTRANSFERASE 39 U/L (0-55)
[2020-09-30] MEDS: RT-ALBUTEROL INHALER HFA (VENTOLIN HFA) 18 GM IH SCH ×2 (07:26→22:32)
[2020-09-30] MEDS: ADVAIR HFA 115/21 MCG INHALER 8 GM IH SCH ×2 (07:26→22:31)
--- NOTE | 2020-09-30 08:33 | Diagnostic Imaging Report ---
EXAM: CHEST 1 VIEW, AP/PA ONLY INDICATION: Shortness of air. COMPARISON: Chest radiograph 09/29/2020. FINDINGS: Low lung volumes. Normal heart size and central pulmonary vascularity. Stable dense airspace opacities throughout both lungs. Probable tiny right pleural effusion. No pneumothorax. IMPRESSION: Dense airspace opacities in both lungs are stable compared to yesterday. Stable small right pleural effusion. Dictated by: Dictated on workstation # [id number]
[2020-09-30] MEDS ORDERED: NON-FORMULARY MEDICATION 1 EA EA (Aspirin/Acetaminophen/Caffeine (Excedrin Migraine Caplet PO SCH (09:00)
[2020-09-30] MEDS: SENNA W/DOCUSATE (SENOKOT S) TABLET PO SCH ×2 (09:17→20:17)
[2020-09-30] MEDS: methylPREDNISolone 40 MG/ML (Solu-MEDROL) VIAL IV SCH ×2 (09:17→20:16)
[2020-09-30] MEDS: meTOproloL SUCCINATE 50 MG (TOPROL XL) TAB PO SCH ×2 (09:17→20:17)
[2020-09-30] MEDS: ASCORBIC ACID (VIT C) 500 MG TABLET PO SCH (09:17)
[2020-09-30] MEDS: VITAMIN D3 25 MCG (1,000 UNITS) TABLET PO SCH (09:17)
[2020-09-30] MEDS: ASPIRIN E.C. 81 MG (ECOTRIN) TAB PO SCH ×2 (09:17→20:17)
[2020-09-30] MEDS: HYDROXYCHLOROQUINE 200 MG (PLAQUENIL) TAB PO SCH ×2 (09:17→20:17)
[2020-09-30] MEDS ORDERED: TROUGH ORDER-PHARMACY XX NR (15:00)
[2020-09-30] MEDS: VANCOMYCIN 1500 MG/NS 500 ML IVPB IV SCH ×2 (16:10)
[2020-09-30] MEDS: LOSARTAN 100 MG (COZAAR) TABLET PO SCH (20:17)
[2020-09-30] MEDS: TAMSULOSIN 0.4 MG (FLOMAX) CAP PO SCH (20:17)
[2020-09-30] MEDS: ACETAMINOPHEN 500 MG TAB (TYLENOL) PO SCH (20:17)
[2020-10-01] MEDS ORDERED: WATER (STERILE) FOR INJECTION 10 ML ONE ×4 (01:15→23:29)
[2020-10-01] MEDS ORDERED: MEROPENEM 500 MG VIAL (MERREM) IV ONE ×4 (01:15→23:29)
[2020-10-01] MEDS: MEROPENEM 500 MG/SWFI 10 ML IV PUSH IV SCH ×10 (01:24→23:54)
[2020-10-01] MEDS: ENOXAPARIN 300 MG/3 ML (LOVENOX) MULTI-DOSE VIAL SQ SCH ×3 (01:24→23:54)
[2020-10-01 05:30] LABS: BASOPHILS % (AUTO) 0 % (0-10); EOSINOPHILS % (AUTO) 0 % (0-10); HEMATOCRIT 43 % (40-54); HEMOGLOBIN 13.5 g/dL (13.3-17.7); LYMPHOCYTES # (AUTO) 0.5 10^3/uL (1.0-4.0); LYMPHOCYTES % (AUTO) 5 % (12-44); MEAN CORPUSCULAR HEMOGLOBIN 27 pg (25-34); MEAN CORPUSCULAR HGB CONC 31 g/dL (32-36); MEAN CORPUSCULAR VOLUME 86 fL (80-99); MEAN PLATELET VOLUME 11.1 fL (9.0-12.2); MONOCYTES # (AUTO) 0.5 10^3/uL (0.0-1.0); MONOCYTES % (AUTO) 6 % (0-12); NEUTROPHILS # (AUTO) 8.4 10^3/uL (1.8-7.8); NEUTROPHILS % (AUTO) 88 % (42-75); PLATELET COUNT 208 10^3/uL (130-400); WHITE BLOOD COUNT 9.6 10^3/uL (4.3-11.0)
[2020-10-01 05:52] LABS: ALBUMIN 2.9 GM/DL (3.2-4.5); BILIRUBIN,TOTAL 0.8 MG/DL (0.1-1.0); CALCIUM 8.7 MG/DL (8.5-10.1); CREATININE SERUM 1.19 MG/DL (0.60-1.30); POTASSIUM 4.3 MMOL/L (3.6-5.0); TOTAL PROTEIN 6.5 GM/DL (6.4-8.2)
--- NOTE | 2020-10-01 06:18 | Progress Note - Hospitalist ---
Subjective HPI/CC On Admission Date Seen by Provider: Oct 01, 2020 Time Seen by Provider: 09:30 CC: Impending respiratory failure transferred from [facility] for higher level of care HPI: This is a 69yoWM clinic patient of Dr Baumann who presented to [facility] on 09/26/20 with dyspnea and reaccumulation of right sided pleural effusion. He had been hospitalized from 09/12-09/16 for COVID PNA had completed his abx and had done well for a few days after right sided pleural effusion drained by thoracentesis by Dr Thornton of 1.5 liters. He did not need O2 at DC after he completed COVID-19 treatments. He did not previously wear O2 or use a CPAP although i t appears he has SATISH on my initial evaluation. Dr Phipps was consulted for thoracentesis after CT scan revealed multi-lobar PNA with severe large right sided pleural effusion. Unable to dion fluid spot with USG and considering his tachypnea and hypoxia and hypercapcnia he was assessed to need higher level of care and was transferred to [facility]. Dr Phipps was able to drain the effusion and obtain 3.5 liters out and ABG after that revealed improved lung expansion and will be on trial of biPAP. Patient maintained on Meropenem and Vanc empirically due to suspicion of HAP and effusion infection. Lovenox given BID vs Eliquis. No PE on CT angiogram. Subjective/Events-last exam Pt doing very well PT and OT and rehab evaluation today Hypoxia remains, requiring oxygen Overall feels really good Likely inpatient rehab tomorrow Review of Systems General: Fatigue, Malaise Objective Exam Vital Signs Vital Signs Date Time Temp Pulse Resp B/P (MAP) Pulse Ox O2 Delivery O2 Flow Rate FiO2 10/02/20 00:00 36.0 65 18 138/65 (89) 93 High Flow N/C 5.00 09/28/20 04:00 40 Capillary Refill : Less Than 3 Seconds General Appearance: No Apparent Distress, WD/WN, Chronically ill, Obese Respiratory: Chest Non Tender, Lungs Clear, Normal Breath Sounds, No Accessory Muscle Use, No Respiratory Distress Cardiovascular: Regular Rate, Rhythm, No Edema, No Gallop, No JVD, No Murmur, Normal Peripheral Pulses Neurologic/Psychiatric: Alert, Oriented x3, No Motor/Sensory Deficits, Normal Mood/Affect, Motor Weakness (severe extremity weakness) Results/Procedures Lab Patient resulted labs reviewed. Assessment/Plan Assessment and Plan Assess & Plan/Chief Complaint Assessment: Impending respiratory failure from multi-lobar PNA residual form COVID-19 admitted 09/12/20-09/16/20 s/p thoracentesis for large right sided pleural effusion 3.[address] Phipps Presumed SATISH Hypoxia Hypercapnia Obesity HTN SLE BPH Plan: Await effusion fluid Cx Monitor O2 BiPAP Abx Lovenox 09/28/20: Await effusion results Dramatically improved Updated 09/29/20: Monitor CXR O2 Labs Move to 4th 09/30/20: PT OT tomorrow Monitor labs 10/01/20: IRF tomorrow Diagnosis/Problems Diagnosis/Problems (1) Respiratory insufficiency (2) COVID-19 (3) Obesity (4) Hypoxia (5) Hypercapnia (6) Pleural effusion on right (7) SLE (systemic lupus erythematosus related syndrome) (8) Hypertension Clinical Quality Measures DVT/VTE Risk/Contraindication: Risk Factor Score Per Nursin RFS Level Per Nursing on Admit: 3=High ISI HOPSON DO Oct 01, 2020 06:18
[2020-10-01] MEDS: FUROSEMIDE 40 MG/4 ML INJ (LASIX) IVP SCH ×2 (06:19→16:56)
--- NOTE | 2020-10-01 06:59 | Diagnostic Imaging Report ---
INDICATION: Dyspnea. Comparison made with prior examination of 09/30/2020. FINDINGS: There is cardiomegaly. There are patchy bilateral pulmonary infiltrates. There appears be some venous congestion. No pleural effusion or pneumothorax. Mediastinum is unremarkable. IMPRESSION: Patchy diffuse bilateral airspace disease suspect for atypical pneumonia possibly COVID. Cardiomegaly and some central pulmonary venous congestion. Faxed to [facility]/Infection control at 6:58 a.m. by cvb. Dictated by: Dictated on workstation # [id number]
[2020-10-01] MEDS: RT-ALBUTEROL INHALER HFA (VENTOLIN HFA) 18 GM IH SCH ×2 (07:53→21:39)
[2020-10-01] MEDS: ADVAIR HFA 115/21 MCG INHALER 8 GM IH SCH ×2 (07:53→21:39)
[2020-10-01 07:58] VITALS: BP 164/84
--- NOTE | 2020-10-01 08:30 | Diagnostic Imaging Report ---
INDICATION: PLEURAL EFFUSION TECHNIQUE: All CT scans use one or more of the following dose optimizing techniques: automated exposure control, MA and/or KvP adjustment based on patient size and exam type or iterative reconstruction. The patient was brought to the CT suite placed on the table in the supine position. Axial imaging through the chest was performed to evaluate appropriate entry site. The right lower lateral chest was prepped and draped in usual sterile fashion. Small amount of 1% lidocaine was utilized for local anesthesia. A thoracentesis catheter was advanced into the inferior right pleural space. A total of 3450 mL of fluid was removed. Catheter was withdrawn and hemostasis was obtained. Followup imaging demonstrates complete resolution of the large right pleural effusion. No pneumothorax is identified. There are patchy groundglass airspace infiltrates throughout the left upper lobe and left lower lobe. There is are nodular densities in the right middle lobe, indeterminate. Patient also appears to have bulky axillary or mediastinal lymphadenopathy. IMPRESSION: 1. Successful CT-guided pleural drainage obtaining 3450 mL's of fluid. No complicated features are noted. 2. Bilateral pulmonary infiltrates, greatest on the left. 3. Right middle lobe pulmonary nodules. Metastatic disease cannot be entirely excluded. In addition, there is bulky axillary and mediastinal lymphadenopathy consistent with lymphomatous or neoplastic process. Dictated by: Dictated on workstation # [id number]
[2020-10-01] MEDS: ASCORBIC ACID (VIT C) 500 MG TABLET PO SCH (08:31)
[2020-10-01] MEDS: meTOproloL SUCCINATE 50 MG (TOPROL XL) TAB PO SCH ×2 (08:31→20:50)
[2020-10-01] MEDS: ASPIRIN E.C. 81 MG (ECOTRIN) TAB PO SCH ×2 (08:31→20:50)
[2020-10-01] MEDS: HYDROXYCHLOROQUINE 200 MG (PLAQUENIL) TAB PO SCH ×2 (08:31→20:50)
[2020-10-01] MEDS: SENNA W/DOCUSATE (SENOKOT S) TABLET PO SCH ×2 (08:31→19:27)
[2020-10-01] MEDS: VITAMIN D3 25 MCG (1,000 UNITS) TABLET PO SCH (08:31)
[2020-10-01] MEDS: methylPREDNISolone 40 MG/ML (Solu-MEDROL) VIAL IV SCH ×2 (08:31→20:50)
--- NOTE | 2020-10-01 12:56 | Physical Therapy Daily Note ---
PT Daily Note-Current Subjective Patient is in bed and agrees to PT. OT present as well. Mental Status Patient Orientation: Normal For Age Attachments: Oxygen (8L HF NC) Transfers SCALE: Activities may be completed with or without assistive devices. 2-Seryuxovqo-ggtwtel completes the activity by him/herself with no assistance from a helper. 5-Set-up or Clean-up Assistance-helper sets up or cleans up; patient completes activity. [place] assists only prior to or following the activity. 4-Supervision or Touching Assistance-helper provides verbal cues and/or touching/steadying and/or contact guard assistance as patient completes activi ty. Assistance may be provided throughout the activity or intermittently. 3-Partial/Moderate Assistance-helper does LESS THAN HALF the effort. [place] lifts, holds or supports trunk or limbs, but provides less than half the effort. 2-Substantial/Maximal Assistance-helper does MORE THAN HALF the effort. [place] lifts or holds trunk or limbs and provides more than half the effort. 2-Ornrwbkhv-hbhibo does ALL the effort. Patient does none of the effort to complete the activity. Or, the assistance of 2 or more helpers is required for the patient to complete the activity. If activity was not attempted, code reason: 7-Patient Refused. 9-Not Applicable-not attempted and the patient did not perform the activity before the current illness, exacerbation or injury. 10-Not Attempted due to Environmental Limitations-(lack of equipment, weather restraints, etc.). 88-Not Attempted due to Medical Conditions or Safety Concerns. Sit to Lying (QC): 4 Lying to Sitting/Side of Bed(Q: 4 Sit to Stand (QC): 4 Weight Bearing Full Weight Bearing Full Weight Bearing Gait Training Does the Patient Walk?: Yes Distance: 5 side steps Gait Assistive Device: FWW OT assist with donning bilateral AFO's and shoes Assessment Patient stood for 8 min while OT assisted in cleansing gluteal region. PT address standing balance and activity. Patient returned to bed per his request. PT Short Term Goals Short Term Goals Time Frame: Oct 03, 2020 Roll Left & Right: 5 Sit to lyin Lying to sitting on side of be: 5 Sit to stand: 5 Chair/fsv-af-ifybh transfer: 5 Walk 10 feet: 5 Walk 50 feet with two turns: 5 PT Long-Term Goals Atm Mechanic Goals PT Atm Mechanic Goals Time Frame: Oct 06, 2020 Roll Left & Right (QC): 6 Sit to Lying (QC): 6 Lying-Sitting on Side/Bed(QC): 6 Sit to Stand (QC): 6 Chair/Odc-pn-Lghvn Xfer(QC): 6 Walk 50ft with 2 Turns (QC): 5 PT Plan Treatment/Plan Treatment Plan: Continue Plan of Care Treatment Plan: Bed Mobility, Education, Functional Strength, Gait, Therapeutic Exercise Treatment Duration: Oct 06, 2020 Frequency: 6 times per week Time/GCodes Time In: 1125 Time Out: 1140 Total Billed Treatment Time: 15 Total Billed Treatment 1 visit FA 15 (cotreat with OT) NATHANIEL BORJA PT Oct 01, 2020 12:56
--- NOTE | 2020-10-01 13:59 | NUR ---
IRF Evaluation Determination: Accepted Chart review complete and findings discussed with Dr. Elliott - patient accepted. This life underwriter has reached out to Rehab Consultant, to clarify if patient can come out of isolation. Awaiting reply. Called patient's room to discuss details related to rehabilitation program. Patient is agreeable to admission and required therapy regimen. If cleared to come out of isolation, patient will admit to the ARU, 10/02/20. Thank you for this referral. Addendum: 10/01/20 at 1446 by GEORGIA JOHNSON Sabino, Rehab Consultant, confirms patient can come out of isolation as long as he remains afebrile. Patient notified of this information. Patient to admit to ARU, 10/02.
--- NOTE | 2020-10-01 14:23 | Occupational Ther Daily Note ---
OT Current Status-Daily Note Subjective No pain reported. Mental Status/Objective Patient Orientation: Person, Place, Time, Situation ADL-Treatment Therapy Code Descriptions/Definitions Functional [place] Measure: 0=Not Assessed/NA 4=Minimal Assistance 1=Total Assistance 5=Supervision or Setup 2=Maximal Assistance 6=Modified [place] 3=Moderate Assistance 7=Complete IndependenceSCALE: Activities may be completed with or without assistive devices. 7-Owgznsdfwq-odxovbe completes the activity by him/herself with no assistance from a helper. 5-Set-up or Clean-up Assistance-helper sets up or cleans up; patient completes activity. [place] assists only prior to or following the activity. 4-Supervision or Touching Assistance-helper provides verbal cues and/or touching/steadying and/or contact guard assistance as patient completes activity. Assistance may be provided throughout the activity or intermittently. 3-Partial/Moderate Assistance-helper does LESS THAN HALF the effort. [place] lifts, holds or supports trunk or limbs, but provides less than half the effort. 2-Substantial/Maximal Assistance-helper does MORE THAN HALF the effort. [place] lifts or holds trunk or limbs and provides more than half the effort. 7-Ozbqgrbvk-fxvdmh does ALL the effort. Patient does none of the effort to complete the activity. Or, the assistance of 2 or more helpers is required for the patient to complete the activity. If activity was not attempted, code reason: 7-Patient Refused. 9-Not Applicable-not attempted and the patient did not perform the activity before the current illness, exacerbation or injury. 10-Not Attempted due to Environmental Limitations-(lack of equipment, weather restraints, etc.). 88-Not Attempted due to Medical Conditions or Safety Concerns. Eating (QC): 6 (No issues per pt.) On/Off Footwear: 1 Toileting Hygiene (QC): 1 Other Treatment OT/PT co-treatment due to skilled assistance of two therapists needed. PT focused on transfers while OT assisted with ADL skills. Pt. transferred supine- sit with min assist. Unable to don bilateral shoes and AFOs, as he felt too weak to do so. OT did this for him. Pt. stood at bedside with min assist for sit-stand, and able to stand approximately 4-6minutes. Pt. took steps toward HOB. Please see PT noted. Noted that while pt. standing, he had been incontinent of stool on pad. OT provided matilde care and cleansed rear matilde area. Pads positioned and pt. transferred sit-supine with mod/max assist. All needs met in bed and pt. comfortable when therapy left room. Education OT Patient Education: Correct positioning, Modified ADL techniques, Progress toward Goal/Update tx plan, Purpose of tx/functional activities, Reviewed precautions, Rehab process, Transfer techniques Teaching Recipient: Patient Teaching Methods: Demonstration, Discussion Response to Teaching: Verbalize Understanding, Return Demonstration OT Shelter Goals Polysomnographic Tech Goals Time Frame: Oct 12, 2020 Eating (QC): 6 Oral Hygiene (QC): 6 Toileting Hygiene (QC): 6 Shower/Bathe Self (QC): 6 Upper Body Dressing (QC): 6 Lower Body Dressing (QC): 6 On/Off Footwear (QC): 6 1=Demonstrate adherence to instructed precautions during ADL tasks. 2=Patient will verbalize/demonstrate understanding of assistive dev ices/modifications for ADL. 3=Patient will improve strength/tolerance for activity to enable patient to perform ADL's. OT Education/Plan Problem List/Assessment Assessment: Decreased Activ Tolerance, Dependent Transfers, Impaired Bed Mobility, Impaired I ADL's, Impaired Self-Care Skills Pt would benefit from skilled OT in order to increase functional endurance and safety with ADLs/functional mobility to maximize LOF to safely return home. Discharge Recommendations Plan/Recommendations: Continue POC Therapy Discharge Recommendati: Post Acute OT Treatment Plan/Plan of Care Treatment,Training & Education: Yes Patient would benefit from OT for education, treatment and training to promote independence in ADL's, mobility, safety and/or upper extremity function for ADL's. Plan of Care: ADL Retraining, Functional Mobility, UE Funct Exercise/Act Treatment Duration: Oct 12, 2020 Frequency: 5 times per week Estimated Hrs Per Day: .25 hour per day Agreement: Yes Rehab Potential: Good Time/GCodes Start Time: 11:25 Stop Time: 11:40 Total Time Billed (hr/min): 15 Billed Treatment Time 1, FA x 15minutes Co-treatment with PT. Please see above note for designated roles. BRENDAN PENALOZA OT Oct 01, 2020 14:23
[2020-10-01] MEDS: VANCOMYCIN 1500 MG/NS 500 ML IVPB IV SCH ×2 (16:51)
[2020-10-01] MEDS: TAMSULOSIN 0.4 MG (FLOMAX) CAP PO SCH (20:50)
[2020-10-01] MEDS: LOSARTAN 100 MG (COZAAR) TABLET PO SCH (20:50)
[2020-10-01] MEDS: ACETAMINOPHEN 500 MG TAB (TYLENOL) PO SCH (20:51)
--- NOTE | 2020-10-02 04:53 | Discharge Summary ---
Diagnosis/Chief Complaint Date of Admission Sep 27, 2020 at 12:16 Date of Discharge Discharge Date: Oct 02, 2020 Discharge Diagnosis Assessment: Impending respiratory failure from multi-lobar PNA residual form COVID-19 admitted 09/12/20-09/16/20 s/p thoracentesis for large right sided pleural effusion 3.[address] Phipps Presumed SATISH Hypoxia Hypercapnia Obesity HTN SLE BPH Plan: Await effusion fluid Cx Monitor O2 BiPAP Abx Lovenox 09/28/20: Await effusion results Dramatically improved Updated 09/29/20: Monitor CXR O2 Labs Move to 4th 09/30/20: PT OT tomorrow Monitor labs 10/01/20: IRF tomorrow Diagnosis/Problems Diagnosis/Problems (1) Respiratory insufficiency (2) COVID-19 (3) Obesity (4) Hypoxia (5) Hypercapnia (6) Pleural effusion on right (7) SLE (systemic lupus erythematosus related syndrome) (8) Hypertension Discharge Summary Discharge Physical Examination Allergies: Coded Allergies: No Allergy Information Available (Unverified , 09/27/20) Vitals & I&Os Vital Signs Date Time Temp Pulse Resp B/P (MAP) Pulse Ox O2 Delivery O2 Flow Rate FiO2 10/02/20 11:00 35.9 71 16 125/66 98 High Flow N/C 5.00 09/28/20 04:00 40 General Appearance: Alert, Oriented X3, Cooperative Respiratory: Clear to Auscultation Cardiovascular: Regular Rate Neuro: Normal Gait Psych/Mental Status: Mental Status NL Hospital Course Was the Problem List Reviewed?: Yes Hospital Course: Pt had an uneventful hospital course after he was admitted form [facility] due to severe right sided pleural effusion post Covid and pneumonia. He had 3.5 liters drained out with CT guided help with Dr. Shelby and Dr. Phipps. Overall he remained on antibiotics, transitioned to Cefdinir at [facility] and was placed on inpatient rehab for close monitoring and continued recovery. Labs (last 24 hrs) Laboratory Tests 09/27/20 14:25: Blood Gas Puncture Site L RAD, Blood Gas Patient Temperature 36.1, Arterial B lood pH 7.31*L, Arterial Blood Partial Pressure CO2 45, Arterial Blood Partial Pressure O2 73L, Arterial Blood HCO3 22L, Arterial Blood Total CO2 23.7, Arterial Blood Oxygen Saturation 94, Arterial Blood Base Excess -3.2L, Kenji Test YES-POS, Blood Gas Ventilator Setting NO, Blood Gas Inspired Oxygen 10L 09/27/20 15:20: White Blood Count 7.8, Red Blood Count 4.44, Hemoglobin 12.2L, Hematocrit 40, Mean Corpuscular Volume 91, Mean Corpuscular Hemoglobin 28, Mean Corpuscular Hemoglobin Concent 30L, Red Cell Distribution Width 14.6H, Platelet Count 184, Mean Platelet Volume 10.5, Immature Granulocyte % (Auto) 1, Neutrophils (%) (Auto) 90H, Lymphocytes (%) (Auto) 6L, Monocytes (%) (Auto) 3, Eosinophils (%) (Auto) 0, Basophils (%) (Auto) 0, Neutrophils # (Auto) 7.0, Lymphocytes # (Auto) 0.5L, Monocytes # (Auto) 0.3, Eosinophils # (Auto) 0.0, Basophils # (Auto) 0.0, Immature Granulocyte # (Auto) 0.1, Neutrophils % (Manual) 90, Lymphocytes % (Manual) 5, Monocytes % (Manual) 2, Eosinophils % (Manual) 0, Basophils % (Manual) 0, Band Neutrophils 3, Blood Morphology Comment NORMAL, Sodium Level 133L, Potassium Level 4.3, Chloride Level 101, Carbon Dioxide Level 20L, Anion Gap 12, Blood Urea Nitrogen 20H, Creatinine 1.09, Estimat Glomerular Filtration Rate > 60, BUN/Creatinine Ratio 18, Glucose Level 104, Calcium Level 9.1, Corrected Calcium 9.9, Total Bilirubin 0.6, Aspartate Amino Transf (AST/SGOT) 26, Alanine Aminotransferase (ALT/SGPT) 28, Alkaline Phosphatase 83, Total Protein 6.3L, Albumin 3.0L 09/28/20 02:40: Blood Gas Puncture Site LEFT RADIAL, Blood Gas Patient Temperature 35.8, Arterial Blood pH 7.35L, Arterial Blood Partial Pressure CO2 42, Arterial Blood Partial Pressure O2 88, Arterial Blood HCO3 22L, Arterial Blood Total CO2 23.1, Arterial Blood Oxygen Saturation 97, Arterial Blood Base Excess -3.4L, Kenji Test YES-POS, Blood Gas Ventilator Setting NO, Blood Gas Inspired Oxygen 40% 09/28/20 04:00: White Blood Count 8.7, Red Blood Count 4.46, Hemoglobin 12.3L, Hematocrit 40, Mean Corpuscular Volume 89, Mean Corpuscular Hemoglobin 28, Mean Corpuscular Hemoglobin Concent 31L, Red Cell Distribution Width 14.7H, Platelet Count 176, Mean Platelet Volume 10.6, Immature Granulocyte % (Auto) 1, Neutrophils (%) (Auto) 90H, Lymphocytes (%) (Auto) 5L, Monocytes (%) (Auto) 4, Eosinophils (%) (Auto) 0, Basophils (%) (Auto) 0, Neutrophils # (Auto) 7.8, Lymphocytes # (Auto) 0.4L, Monocytes # (Auto) 0.4, Eosinophils # (Auto) 0.0, Basophils # (Auto) 0.0, Immature Granulocyte # (Auto) 0.0, Sodium Level 132L, Potassium Level 4.4, Chloride Level 101, Carbon Dioxide Level 19L, Anion Gap 12, Blood Urea Nitrogen 24H, Creatinine 1.13, Estimat Glomerular Filtration Rate > 60, BUN/Creatinine Ratio 21, Glucose Level 115H, Calcium Level 8.7, Phosphorus Level 3.4, Magnesium Level 2.3 09/28/20 04:20: Vancomycin Level Trough 24.4H 09/28/20 15:17: Vancomycin Level Trough 18.7 09/29/20 03:07: White Blood Count 8.9, Red Blood Count 4.70, Hemoglobin 12.6L, Hematocrit 40, Mean Corpuscular Volume 86, Mean Corpuscular Hemoglobin 27, Mean Corpuscular Hemoglobin Concent 31L, Red Cell Distribution Width 14.6H, Platelet Count 193, Mean Platelet Volume 11.1, Immature Granulocyte % (Auto) 1, Neutrophils (%) (Auto) 92H, Lymphocytes (%) (Auto) 4L, Monocytes (%) (Auto) 4, Eosinophils (%) (Auto) 0, Basophils (%) (Auto) 0, Neutrophils # (Auto) 8.2H, Lymphocytes # (Auto) 0.4L, Monocytes # (Auto) 0.4, Eosinophils # (Auto) 0.0, Basophils # (Auto) 0.0, Immature Granulocyte # (Auto) 0.1, Sodium Level 133L, Potassium Level 4.4, Chloride Level 102, Carbon Dioxide Level 21, Anion Gap 10, Blood Urea Nitrogen 33H, Creatinine 1.18, Estimat Glomerular Filtration Rate > 60, BUN/Creatinine Ratio 28, Glucose Level 171H, Calcium Level 8.7, Phosphorus Level 2.1L, Magnesium Level 2.3 09/30/20 06:47: White Blood Count 7.6, Red Blood Count 4.74, Hemoglobin 13.1L, Hematocrit 41, Mean Corpuscular Volume 86, Mean Corpuscular Hemoglobin 28, Mean Corpuscular Hemoglobin Concent 32, Red Cell Distribution Width 14.7H, Platelet Count 212, Mean Platelet Volume 10.7, Immature Granulocyte % (Auto) 1, Neutrophils (%) (Auto) 89H, Lymphocytes (%) (Auto) 6L, Monocytes (%) (Auto) 6, Eosinophils (%) (Auto) 0, Basophils (%) (Auto) 0, Neutrophils # (Auto) 6.8, Lymphocytes # (Auto) 0.4L, Monocytes # (Auto) 0.4, Eosinophils # (Auto) 0.0, Basophils # (Auto) 0.0, Immature Granulocyte # (Auto) 0.0, Sodium Level 132L, Potassium Level 4.1, Chloride Level 101, Carbon Dioxide Level 23, Anion Gap 8, Blood Urea Nitrogen 37H, Creatinine 1.11, Estimat Glomerular Filtration Rate > 60, BUN/Creatinine Ratio 33, Glucose Level 143H, Calcium Level 8.6, Corrected Calcium 9.4, Total Bilirubin 0.8, Aspartate Amino Transf (AST/SGOT) 28, Alanine Aminotransferase (ALT/SGPT) 39, Alkaline Phosphatase 74, Total Protein 6.4, Albumin 3.0L 10/01/20 04:10: White Blood Count 9.6, Red Blood Count 5.02, Hemoglobin 13.5, Hematocrit 43, Mena n Corpuscular Volume 86, Mean Corpuscular Hemoglobin 27, Mean Corpuscular Hemoglobin Concent 31L, Red Cell Distribution Width 14.6H, Platelet Count 208, Mean Platelet Volume 11.1, Immature Granulocyte % (Auto) 1, Neutrophils (%) (Auto) 88H, Lymphocytes (%) (Auto) 5L, Monocytes (%) (Auto) 6, Eosinophils (%) (Auto) 0, Basophils (%) (Auto) 0, Neutrophils # (Auto) 8.4H, Lymphocytes # (Auto) 0.5L, Monocytes # (Auto) 0.5, Eosinophils # (Auto) 0.0, Basophils # (Auto) 0.0, Immature Granulocyte # (Auto) 0.1, Sodium Level 134L, Potassium Level 4.3, Chloride Level 102, Carbon Dioxide Level 23, Anion Gap 9, Blood Urea Nitrogen 41H, Creatinine 1.19, Estimat Glomerular Filtration Rate 60, BUN/Creatinine Ratio 34, Glucose Level 147H, Calcium Level 8.7, Corrected Calcium 9.6, Total Bilirubin 0.8, Aspartate Amino Transf (AST/SGOT) 21, Alanine Aminotransferase (ALT/SGPT) 43, Alkaline Phosphatase 86, Total Protein 6.5, Albumin 2.9L 10/02/20 05:57: White Blood Count 9.3, Red Blood Count 4.92, Hemoglobin 13.3, Hematocrit 42, Mean Corpuscular Volume 86, Mean Corpuscular Hemoglobin 27, Mean Corpuscular Hemoglobin Concent 32, Red Cell Distribution Width 14.6H, Platelet Count 186, M kevin Platelet Volume 10.6, Immature Granulocyte % (Auto) 2, Neutrophils (%) (Auto) 87H, Lymphocytes (%) (Auto) 5L, Monocytes (%) (Auto) 6, Eosinophils (%) (Auto) 0, Basophils (%) (Auto) 0, Neutrophils # (Auto) 8.0H, Lymphocytes # (Auto) 0.5L, Monocytes # (Auto) 0.6, Eosinophils # (Auto) 0.0, Basophils # (Auto) 0.0, Immature Granulocyte # (Auto) 0.2H, Sodium Level 132L, Potassium Level 4.6, Chloride Level 102, Carbon Dioxide Level 24, Anion Gap 6, Blood Urea Nitrogen 42H, Creatinine 1.07, Estimat Glomerular Filtration Rate > 60, BUN/Creatinine Ratio 39, Glucose Level 147H, Calcium Level 8.6, Corrected Calcium 9.6, Total Bilirubin 0.7, Aspartate Amino Transf (AST/SGOT) 14, Alanine Aminotransferase (ALT/SGPT) 34, Alkaline Phosphatase 70, Total Protein 6.4, Albumin 2.8L Pending Labs Laboratory Tests 09/27/20 14:25: Blood Gas Puncture Site L RAD, Blood Gas Patient Temperature 36.1, Arterial Blood pH 7.31, Arterial Blood Partial Pressure CO2 45, Arterial Blood Partial Pressure O2 73, Arterial Blood HCO3 22, Arterial Blood Total CO2 23.7, Arterial Blood Oxygen Saturation 94, Arterial Blood Base Excess -3.2, Kenji Test YES-POS, Blood Gas Ventilator Setting NO, Blood Gas Inspired Oxygen 10L 09/27/20 15:20: White Blood Count 7.8, Red Blood Count 4.44, Hemoglobin 12.2, Hematocrit 40, Mean Corpuscular Volume 91, Mean Corpuscular Hemoglobin 28, Mean Corpuscular Hemoglobin Concent 30, Red Cell Distribution Width 14.6, Platelet Count 184, Mean Platelet Volume 10.5, Immature Granulocyte % (Auto) 1, Neutrophils (%) (Auto) 90, Lymphocytes (%) (Auto) 6, Monocytes (%) (Auto) 3, Eosinophils (%) (Auto) 0, Basophils (%) (Auto) 0, Neutrophils # (Auto) 7.0, Lymphocytes # (Auto) 0.5, Monocytes # (Auto) 0.3, Eosinophils # (Auto) 0.0, Basophils # (Auto) 0.0, Immature Granulocyte # (Auto) 0.1, Neutrophils % (Manual) 90, Lymphocytes % (Manual) 5, Monocytes % (Manual) 2, Eosinophils % (Manual) 0, Basophils % (Manual) 0, Band Neutrophils 3, Blood Morphology Comment NORMAL, Sodium Level 133, Potassium Level 4.3, Chloride Level 101, Carbon Dioxide Level 20, Anion Gap 12, Blood Urea Nitrogen 20, Creatinine 1.09, Estimat Glomerular Filtration Rate > 60, BUN/Creatinine Ratio 18, Glucose Level 104, Calcium Level 9.1, Corrected Calcium 9.9, Total Bilirubin 0.6, Aspartate Amino Transf (AST/SGOT) 26, Alanine Aminotransferase (ALT/SGPT) 28, Alkaline Phosphatase 83, Total Protein 6.3, Albumin 3.0 09/28/20 02:40: Blood Gas Puncture Site LEFT RADIAL, Blood Gas Patient Temperature 35.8, Arterial Blood pH 7.35, Arterial Blood Partial Pressure CO2 42, Arterial Blood Partial Pressure O2 88, Arterial Blood HCO3 22, Arterial Blood Total CO2 23.1, Arterial Blood Oxygen Saturation 97, Arterial Blood Base Excess -3.4, Kenji Test YES-POS, Blood Gas Ventilator Setting NO, Blood Gas Inspired Oxygen 40% 09/28/20 04:00: White Blood Count 8.7, Red Blood Count 4.46, Hemoglobin 12.3, Hematocrit 40, Mean Corpuscular Volume 89, Mean Corpuscular Hemoglobin 28, Mean Corpuscular Hemoglobin Concent 31, Red Cell Distribution Width 14.7, Platelet Count 176, Mean Platelet Volume 10.6, Immature Granulocyte % (Auto) 1, Neutrophils (%) (Auto) 90, Lymphocytes (%) (Auto) 5, Monocytes (%) (Auto) 4, Eosinophils (%) (Auto) 0, Basophils (%) (Auto) 0, Neutrophils # (Auto) 7.8, Lymphocytes # (Auto) 0.4, Monocytes # (Auto) 0.4, Eosinophils # (Auto) 0.0, Basophils # (Auto) 0.0, Immature Granulocyte # (Auto) 0.0, Sodium Level 132, Potassium Level 4.4, Chloride Level 101, Carbon Dioxide Level 19, Anion Gap 12, Blood Urea Nitrogen 24, Creatinine 1.13, Estimat Glomerular Filtration Rate > 60, BUN/Creatinine Ratio 21, Glucose Level 115, Calcium Level 8.7, Phosphorus Level 3.4, Magnesium Level 2.3 09/28/20 04:20: Vancomycin Level Trough 24.4 09/28/20 15:17: Vancomycin Level Trough 18.7 09/29/20 03:07: White Blood Count 8.9, Red Blood Count 4.70, Hemoglobin 12.6, Hematocrit 40, Me an Corpuscular Volume 86, Mean Corpuscular Hemoglobin 27, Mean Corpuscular Hemoglobin Concent 31, Red Cell Distribution Width 14.6, Platelet Count 193, Mean Platelet Volume 11.1, Immature Granulocyte % (Auto) 1, Neutrophils (%) (Auto) 92, Lymphocytes (%) (Auto) 4, Monocytes (%) (Auto) 4, Eosinophils (%) (Auto) 0, Basophils (%) (Auto) 0, Neutrophils # (Auto) 8.2, Lymphocytes # (Auto) 0.4, Monocytes # (Auto) 0.4, Eosinophils # (Auto) 0.0, Basophils # (Auto) 0.0, Immature Granulocyte # (Auto) 0.1, Sodium Level 133, Potassium Level 4.4, Chloride Level 102, Carbon Dioxide Level 21, Anion Gap 10, Blood Urea Nitrogen 33, Creatinine 1.18, Estimat Glomerular Filtration Rate > 60, BUN/Creatinine Ratio 28, Glucose Level 171, Calcium Level 8.7, Phosphorus Level 2.1, Magnesium Level 2.3 09/30/20 06:47: White Blood Count 7.6, Red Blood Count 4.74, Hemoglobin 13.1, Hematocrit 41, Mean Corpuscular Volume 86, Mean Corpuscular Hemoglobin 28, Mean Corpuscular Hemoglobin Concent 32, Red Cell Distribution Width 14.7, Platelet Count 212, Mean Platelet Volume 10.7, Immature Granulocyte % (Auto) 1, Neutrophils (%) (Auto) 89, Lymphocytes (%) (Auto) 6, Monocytes (%) (Auto) 6, Eosinophils (%) (Auto) 0, Basophils (%) (Auto) 0, Neutrophils # (Auto) 6.8, Lymphocytes # (Auto) 0.4, Monocytes # (Auto) 0.4, Eosinophils # (Auto) 0.0, Basophils # (Auto) 0.0, Immature Granulocyte # (Auto) 0.0, Sodium Level 132, Potassium Level 4.1, Chloride Level 101, Carbon Dioxide Level 23, Anion Gap 8, Blood Urea Nitrogen 37, Creatinine 1.11, Estimat Glomerular Filtration Rate > 60, BUN/Creatinine Ratio 33, Glucose Level 143, Calcium Level 8.6, Corrected Calcium 9.4, Total Bilirubin 0.8, Aspartate Amino Transf (AST/SGOT) 28, Alanine Aminotransferase (ALT/SGPT) 39, Alkaline Phosphatase 74, Total Protein 6.4, Albumin 3.0 10/01/20 04:10: White Blood Count 9.6, Red Blood Count 5.02, Hemoglobin 13.5, Hematocrit 43, Mean Corpuscular Volume 86, Mean Corpuscular Hemoglobin 27, Mean Corpuscular Hemoglobin Concent 31, Red Cell Distribution Width 14.6, Platelet Count 208, Mean Platelet Volume 11.1, Immature Granulocyte % (Auto) 1, Neutrophils (%) (Auto) 88, Lymphocytes (%) (Auto) 5, Monocytes (%) (Auto) 6, Eosinophils (%) (Auto) 0, Basophils (%) (Auto) 0, Neutrophils # (Auto) 8.4, Lymphocytes # (Auto) 0.5, Monocytes # (Auto) 0.5, Eosinophils # (Auto) 0.0, Basophils # (Auto) 0.0, Immature Granulocyte # (Auto) 0.1, Sodium Level 134, Potassium Level 4.3, Chloride Level 102, Carbon Dioxide Level 23, Anion Gap 9, Blood Urea Nitrogen 41, Creatinine 1.19, Estimat Glomerular Filtration Rate 60, BUN/Creatinine Ratio 34, Glucose Level 147, Calcium Level 8.7, Corrected Calcium 9.6, Total Bilirubin 0.8, Aspartate Amino Transf (AST/SGOT) 21, Alanine Aminotransferase (ALT/SGPT) 43, Alkaline Phosphatase 86, Total Protein 6.5, Albumin 2.9 10/02/20 05:57: White Blood Count 9.3, Red Blood Count 4.92, Hemoglobin 13.3, Hematocrit 42, Mean Corpuscular Volume 86, Mean Corpuscular Hemoglobin 27, Mean Corpuscular Hemoglobin Concent 32, Red Cell Distribution Width 14.6, Platelet Count 186, Mean Platelet Volume 10.6, Immature Granulocyte % (Auto) 2, Neutrophils (%) (Auto) 87, Lymphocytes (%) (Auto) 5, Monocytes (%) (Auto) 6, Eosinophils (%) (Auto) 0, Basophils (%) (Auto) 0, Neutrophils # (Auto) 8.0, Lymphocytes # (Auto) 0.5, Monocytes # (Auto) 0.6, Eosinophils # (Auto) 0.0, Basophils # (Auto) 0.0, Immature Granulocyte # (Auto) 0.2, Sodium Level 132, Potassium Level 4.6, Chloride Level 102, Carbon Dioxide Level 24, Anion Gap 6, Blood Urea Nitrogen 42, Creatinine 1.07, Estimat Glomerular Filtration Rate > 60, BUN/Creatinine Ratio 39, Glucose Level 147, Calcium Level 8.6, Corrected Calcium 9.6, Total Bilirubin 0.7, Aspartate Amino Transf (AST/SGOT) 14, Alanine Aminotransferase (ALT/SGPT) 34, Alkaline Phosphatase 70, Total Protein 6.4, Albumin 2.8 Discharge Home Medications: Active Scripts Active Reported Vitamin D3 (Cholecalciferol (Vitamin D3)) 25 Mcg Capsule 25 Mcg PO DAILY Excedrin Migraine Caplet (Aspirin/Acetaminophen/Caffeine) 1 Each Tablet 2 Each PO DAILY Tylenol Extra Strength (Acetaminophen) 500 Mg Tablet 1,000 Mg PO HS Vitamin C (Ascorbate Calcium) 500 Mg Tablet 500 Mg PO DAILY Aspirin EC (Aspirin) 81 Mg Tablet.dr 81 Mg PO BID Proair Hfa (Albuterol Sulfate) 1 Puff Puff 2 Puff IH Q4H PRN Metoprolol Succinate 50 Mg Tab.er.24h 50 Mg PO BID Flomax (Tamsulosin HCl) 0.4 Mg Cap 0.4 Mg PO HS Advair 250-50 Diskus (Fluticasone/Salmeterol) 1 Each Blst.w.dev 1 Puff INH BID Hydroxychloroquine Sulfate 200 Mg Tablet 200 Mg PO BID Furosemide 20 Mg Tablet 20 Mg PO 0700,1200 Losartan Potassium 100 Mg Tablet 100 Mg PO HS Instructions to patient/family Please see electronic discharge instructions given to patient. Diagnosis/Problems Diagnosis/Problems (1) Respiratory insufficiency (2) COVID-19 (3) Obesity (4) Hypoxia (5) Hypercapnia (6) Pleural effusion on right (7) SLE (systemic lupus erythematosus related syndrome) (8) Hypertension Clinical Quality Measures DVT/VTE Risk/Contraindication: Risk Factor Score Per Nursin RFS Level Per Nursing on Admit: 3=High ISI HOPSON DO Oct 02, 2020 04:53
[2020-10-02] MEDS ORDERED: WATER (STERILE) FOR INJECTION 10 ML ONE (05:00)
[2020-10-02] MEDS ORDERED: MEROPENEM 500 MG VIAL (MERREM) IV ONE (05:00)
[2020-10-02] MEDS: MEROPENEM 500 MG/SWFI 10 ML IV PUSH IV SCH ×2 (05:39)
[2020-10-02] MEDS: FUROSEMIDE 40 MG/4 ML INJ (LASIX) IVP SCH (05:39)
[2020-10-02 06:16] LABS: BASOPHILS % (AUTO) 0 % (0-10); EOSINOPHILS % (AUTO) 0 % (0-10); HEMATOCRIT 42 % (40-54); HEMOGLOBIN 13.3 g/dL (13.3-17.7); LYMPHOCYTES # (AUTO) 0.5 10^3/uL (1.0-4.0); LYMPHOCYTES % (AUTO) 5 % (12-44); MEAN CORPUSCULAR HEMOGLOBIN 27 pg (25-34); MEAN CORPUSCULAR HGB CONC 32 g/dL (32-36); MEAN CORPUSCULAR VOLUME 86 fL (80-99); MEAN PLATELET VOLUME 10.6 fL (9.0-12.2); MONOCYTES # (AUTO) 0.6 10^3/uL (0.0-1.0); MONOCYTES % (AUTO) 6 % (0-12); NEUTROPHILS % (AUTO) 87 % (42-75); PLATELET COUNT 186 10^3/uL (130-400); WHITE BLOOD COUNT 9.3 10^3/uL (4.3-11.0)
[2020-10-02 06:42] LABS: ALANINE AMINOTRANSFERASE 34 U/L (0-55); ALBUMIN 2.8 GM/DL (3.2-4.5); ALKALINE PHOSPHATASE 70 U/L (40-136); BILIRUBIN,TOTAL 0.7 MG/DL (0.1-1.0); BUN/CREATININE RATIO 39; CALCIUM 8.6 MG/DL (8.5-10.1); CARBON DIOXIDE 24 MMOL/L (21-32); CHLORIDE 102 MMOL/L (98-107); CREATININE SERUM 1.07 MG/DL (0.60-1.30); GFR ESTIMATED > 60; GLUCOSE 147 MG/DL (70-105); POTASSIUM 4.6 MMOL/L (3.6-5.0); SODIUM 132 MMOL/L (135-145); TOTAL PROTEIN 6.4 GM/DL (6.4-8.2)
[2020-10-02] MEDS: ADVAIR HFA 115/21 MCG INHALER 8 GM IH SCH (07:10)
[2020-10-02] MEDS: RT-ALBUTEROL INHALER HFA (VENTOLIN HFA) 18 GM IH SCH (07:10)
[2020-10-02] MEDS: meTOproloL SUCCINATE 50 MG (TOPROL XL) TAB PO SCH (08:14)
[2020-10-02] MEDS: HYDROXYCHLOROQUINE 200 MG (PLAQUENIL) TAB PO SCH (08:14)
[2020-10-02] MEDS: ASCORBIC ACID (VIT C) 500 MG TABLET PO SCH (08:14)
[2020-10-02] MEDS: methylPREDNISolone 40 MG/ML (Solu-MEDROL) VIAL IV SCH (08:14)
[2020-10-02] MEDS: ASPIRIN E.C. 81 MG (ECOTRIN) TAB PO SCH (08:14)
[2020-10-02] MEDS: VITAMIN D3 25 MCG (1,000 UNITS) TABLET PO SCH (08:14)
[2020-10-02] MEDS: SENNA W/DOCUSATE (SENOKOT S) TABLET PO SCH (08:14)
--- NOTE | 2020-10-02 08:24 | Diagnostic Imaging Report ---
INDICATION: Dyspnea. COMPARISON: 10/01/2020 TECHNIQUE: Single radiograph of the chest dated 10/02/2020. FINDINGS: The cardiac silhouette is enlarged, stable from prior examination. Minimal central pulmonary vascular congestion, slightly less prominent than the prior examination. Patchy bilateral pulmonary infiltrates are again identified, appearing slightly worsened within the right lung base. Veiling opacity within the right lung base may relate to a superimposed small right pleural effusion. No large left pleural effusion. No pneumothorax. No acute osseous abnormality. IMPRESSION: Persisting extensive bilateral pulmonary infiltrates, slightly worsened within the right lung base. Findings are suspect for underlying infectious etiology. Possible developing small layering right basilar pleural effusion. Persistent cardiomegaly with minimal central pulmonary vascular congestion. Dictated by: Dictated on workstation # [id number]
--- NOTE | 2020-10-02 10:42 | NUR ---
Patient may come out of COVID isolation
[2020-10-02 11:00] VITALS: BP 125/66
--- NOTE | 2020-10-02 14:18 | Physician Query Clarification ---
"Physician Query-General Query to Physician: The medical record reflects the following clinical scenario: History/Risk factors: Covid 19, PNA Clinical Findings: On admission: RR 22, 02 Sat 92% on 10L, 02 needs 4 to 10L f or greater than 4 days Treatment: High Flow NC/02, NIV Bilevel, IV ABX, Breathing Rx, IV Solumedrol Question: What condition best reflects the above clinical scenario? Please document response in the Progress notes or Discharge Summary. 1. Acute Hypoxic Respiratory Failure, Present on admission 2. Respiratory Insufficiency and impending respiratory failure (As currently documented) 3. Other , with explanation of the clinical findings 4. Clinically undetermined, no explanation for the clinical findings Please remember a lack of response to the above will prompt a phone page by CDI/coding staff In responding to this query, please exercise your independent professional judgment. The purpose of this communication is to more accurately reflect the complexity of your patients condition. The fact that a question is asked does not imply that any particular answer is desired or expected. Thank you for timely response to this clarification. Aspen Zelaya, MSN, RN RN Specialist-Clinical Doc Improvement CD -Health Info Mgmt Operations [address] [facility] t: [phone] | f: [phone] If you are unable to reach me at my extension, I may be working from home. Please contact me at [phone] PHYSICIAN RESPONSE: Based on the clinical findings in the record, please respond to the query above on this document as an addendum. Physician Response: Physician Response 1 If you have questions please contact: [employer]: Ext: Thank you for your time and cooperation. Clinical [employer] Software Engineer/[employer] This is a permanent part of the medical record ASPEN ZELAYA Oct 02, 2020 14:18 ISI HOPSON DO Oct 02, 2020 19:25"
[2020-10-02] MEDS ORDERED: CEFDINIR 300 MG (OMNICEF) CAP PO SCH (21:00)
== END 2020-10-02 11:00 | DRG 177 ==
LOC: ICU 12:16 → 4TH 09-29 13:48
PROVIDERS: ADMIT Internal Medicine; ATTEND Internal Medicine
PROC: 0W993ZZ Drainage of Right Pleural Cavity, Percutaneous Approach (ICD-10-PCS; principal; 2020-09-27)
PROC: 5A09457 Assistance with Respiratory Ventilation, 24-96 Consecutive Hours, Continuous Positive Airway Pressure (ICD-10-PCS; 2020-09-27)
DX: U07.1 COVID-19 (principal); J96.01 Acute respiratory failure with hypoxia; J12.89 Other viral pneumonia; J96.02 Acute respiratory failure with hypercapnia; J90 Pleural effusion, not elsewhere classified; Z68.42 Body mass index [BMI] 45.0-49.9, adult; G47.33 Obstructive sleep apnea (adult) (pediatric); E78.00 Pure hypercholesterolemia, unspecified; I10 Essential (primary) hypertension; N40.1 Benign prostatic hyperplasia with lower urinary tract symptoms; N39.498 Other specified urinary incontinence; M32.9 Systemic lupus erythematosus, unspecified; E66.9 Obesity, unspecified; R59.1 Generalized enlarged lymph nodes
CPT/HCPCS: 36415; 36600; 71045; 77012; 80048; 80053; 80202; 82805; 83735; 84100; 85007; 85025; 85027; 94640; 94660; 94760

== ENCOUNTER 2020-10-02 12:00 | Inpatient (IN) | payer MEDICARE ==
[~2020-10-02] VITALS: Ht 182 cm; Wt 158.7 kg
[2020-10-02] MEDS: DOCUSATE SODIUM 100 MG (COLACE) CAP PO SCH ×2 (11:00→19:22)
[2020-10-02] MEDS: SENNA W/DOCUSATE (SENOKOT S) TABLET PO SCH ×3 (11:00→19:35)
[2020-10-02] MEDS: polyethylene glycoL POWDER 17 GM (MIRALAX) PACK PO SCH ×2 (11:00→19:22)
[~2020-10-02 12:00] MED LIST changes: +ALPRAZolam 0.25 MG (XANAX) TAB PO PRN; +BISACODYL 10 MG SUPP (DULCOLAX) PR PRN; +CALCIUM CARBONATE 500 MG (TUMS) TAB.CHEW PO PRN; +DOCUSATE SODIUM 100 MG (COLACE) CAP PO PRN; +FLEET ENEMA ADULT 1 EA BTL PR PRN; +LACTULOSE SYRUP 10GM/15ML (ENULOSE) 30ML UDC PO PRN; +LOPERAMIDE 2 MG (IMODIUM) TABLET PO PRN; +MELATONIN 3 MG TABLET PO PRN; +ONDANSETRON 4 MG (ZOFRAN) ORAL DISSOLVE TAB PO PRN; +diphenhydrAMINE 25 MG TAB (BENADRYL) PO PRN; +guaiFENesin/CODEINE (ROBITUSSIN AC) 10ML UDC PO PRN
[2020-10-02 12:14] VITALS: BP 138/68
--- NOTE | 2020-10-02 12:56 | Occupational Therapy Eval ---
OT Evaluation-General/PLF Medical Diagnosis Admission Date Oct 02, 2020 at 12:00 Medical Diagnosis: critical illness myopathy Onset Date: Sep 27, 2020 Therapy Diagnosis Therapy Diagnosis: decr self care, decr act daniela, decr funct mobility Precautions Precautions/Isolations: Standard Precautions Referral Physician: Earl Schulte Reason: Evaluation/Treatment Medical History Pertinent Medical History: HTN Additional Medical History Lupus (SLE), BPH. Pt reported numbness in feet and decreased hearing Current History Pt recently hospitalized 09/12 to 09/16 for COVID pneumonia. [place] [facility] with dyspnea and reaccumulation of R side pleural effusion, transferred to [facility] 09/27/for higher level of care. on 8 L/min O2 in acute care. Reviewed History: Yes Social History Home: Single Level Current Living Status: Spouse Other Obstacles: Has family room on lower level ADL-Prior Level of Function SCALE: Activities may be completed with or without assistive devices. 1-Lwolxpzkyv-iyfclvb completes the activity by him/herself with no assistance from a helper. 5-Set-up or Clean-up Assistance-helper sets up or cleans up; patient completes activity. [place] assists only prior to or following the activity. 4-Supervision or Touching Assistance-helper provides verbal cues and/or touching/steadying and/or contact guard assistance as patient completes activity. Assistance may be provided throughout the activity or intermittently. 3-Partial/Moderate Assistance-helper does LESS THAN HALF the effort. [place] lifts, holds or supports trunk or limbs, but provides less than half the effort. 2-Substantial/Maximal Assistance-helper does MORE THAN HALF the effort. [place] lifts or holds trunk or limbs and provides more than half the effort. 6-Igqvjsrcb-bbdflb does ALL the effort. Patient does none of the effort to complete the activity. Or, the assistance of 2 or more helpers is required for the patient to complete the activity. If activity was not attempted, code reason: 7-Patient Refused. 9-Not Applicable-not attempted and the patient did not perform the activity before the current illness, exacerbation or injury. 10-Not Attempted due to Environmental Limitations-(lack of equipment, weather restraints, etc.). 88-Not Attempted due to Medical Conditions or Safety Concerns. ADL PLOF Comments Pt reported that he has been independent with all basic ADLs prior to illness. He also managed tasks around home but has not been mowing yard this year. He drives a 4 [place] his [place] but no longer drives due to decreased sensation in feet. 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 Agreeable to OT. No pain mentioned. Appearance Alert, cooperative Mental Status/Objective Patient Orientation: Person, Place, Time, Situation Attachments: Oxygen (5 L/min nc) Current Glasses/Contacts: Yes Hand Dominance: Right Upper Extremity ROM Grossly WFL bilat Upper Extremity Sensation Pt reported that all of his fingers are partially numb from lupus. Upper Extremity Strength Grossly 4+/5 bilat ADL-Treatment ADL-Current Not tested due to significant fatigue and decreased O2 sats Eating (QC): 88 Oral Hygiene (QC): 88 Shower/Bathe Self (QC): 88 Upper Body Dressing (QC): 88 Lower Body Dressing (QC): 88 On/Off Footwear (QC): 88 Toileting Hygiene (QC): 88 Other Treatments Pt was co-treated with PT due to significantly decreased activity tolerance and requirements of skills from two different professionals. He had difficulty getting out of w/c and needed cues for hand placement. Wears AFL R foot. Pt required significant recovery period after walking in gym. Able to propell w/c to room, using primarily UEs. In room, walked to recliner with FWW and required at least 10 minutes for O2 sats to reach 90%, with nursing adjusting O2 to 7L/min to maintain sats. Pt educ on pursed lip breathing. Pt provided with bariatric BSC so that he has two arms to use for transfers and can have BSC close to chair or bed. Education OT Patient Education: Energy conservation, Purpose of tx/functional activities, Rehab process, Transfer techniques Teaching Recipient: Patient Teaching Methods: Demonstration, Discussion Response to Teaching: Verbalize Understanding, Return Demonstration OT Short Term Goals Short Term Goals Time Frame: Oct 09, 2020 Oral hygiene: 5 Toileting hygiene: 3 Upper body dressin Lower body dressin OT Hood Maker Goals Hood Maker Goals Time Frame: Oct 20, 2020 Eating (QC): 6 Oral Hygiene (QC): 6 Toileting Hygiene (QC): 5 Shower/Bathe Self (QC): 5 Upper Body Dressing (QC): 6 Lower Body Dressing (QC): 6 On/Off Footwear (QC): 6 Additional Goals: 1-Demonstrate ADL Tasks, 2-Verbalize Understanding, 3- ImproveStrength/Cristin 1=Demonstrate adherence to instructed precautions during ADL tasks. 2=Patient will verbalize/demonstrate understanding of assistive devices/modifications for ADL. 3=Patient will improve strength/tolerance for activity to enable patient to perform ADL's. OT Education/Plan Problem List/Assessment Assessment: Decreased Activ Tolerance, Decreased UE Strength, Dependent Transfers, Impaired Funct Balance, Impaired Self-Care Skills Due to a COVID-19 viral infection, patient has deficits that warrant inpatient Acute Rehab. The patient will clearly benefit from intensive PT and OT; however, due to the patient's observed endurance and therapy considerations, he may not be able to tolerate the full 3 hours of scheduled therapy. Therefore, he will be scheduled for as much therapy as he can tolerate with intentional rest/recovery breaks, shortened sessions, including providing therapy across 6 to 7 days. As the patient tolerates, the intensity, frequency and duration of his therapy program will be increased. Discharge Recommendations Plan/Recommendations: Continue POC Treatment Plan/Plan of Care Treatment,Training & Education: Yes Patient would benefit from OT for education, treatment and training to promote independence in ADL's, mobility, safety and/or upper extremity function for ADL's. Plan of Care: ADL Retraining, Functional Mobility, Group Exercise/Act as Ind (to increase activity tolerance, functional mobility, ADLs, strength, socialization), UE Funct Exercise/Act, UE Neuromus Re-Ed/Coord, W/C Management Training, OTHER (energy conservation education) Treatment Duration: Oct 20, 2020 Frequency: Modified Program (IRF) Estimated Hrs Per Day: 1 hour per day Agreement: Yes Rehab Potential: Good Time/GCodes Start Time: 11:25 Stop Time: 12:00 Total Time Billed (hr/min): 35 Billed Treatment Time visit, 10 minutes evaluation moderate intensity, 25 minutes functional activity co-treatment with PT BENNETT SEVERINO OT Oct 02, 2020 12:56
--- NOTE | 2020-10-02 14:01 | Occupational Ther Daily Note ---
OT Current Status-Daily Note Subjective Pt seen in room, up in recliner, agreeable to OT. No pain noted. Appearance Alert, cooperative ADL-Treatment Pt discussed how he thought he needed to toilet, due to enlarged scrotum. He suggested using a bathpan because he could position it while sitting at EOB, if he left his pants partially lowered. He needed mod assist sit to stand from recliner, with pt educ for hand placement. Close CGA transfer to elevated bed, with cues for walker and O2 tubing management. Able to sit EOB without assistance. Help needed to lower pants while he maintained standing. Able to place sewell for use as urinal but did not urinate. Also prepped BSC in anticipation of needing to have BM. Pt's O2 sats up in recliner were 95% on 7L. After sitting EOB, pt got both legs up into bed without physical help but did use the bedrail. O2 sats decreased to 82% and took a few minutes to rise. Pt educ pursed lip breathing which did bring sats up faster. Pt left up in bed, 4 rails up per his request, all needs met. Pt educ to call for assistance if he needs to toilet, for safety. Pt reported that he opened food items for lunch and fed himself without help. Therapy Code Descriptions/Definitions Functional [place] Measure: 0=Not Assessed/NA 4=Minimal Assistance 1=Total Assistance 5=Supervision or Setup 2=Maximal Assistance 6=Modified [place] 3=Moderate Assistance 7=Complete IndependenceSCALE: Activities may be completed with or without assistive devices. 8-Szrzogqguv-kvucrey completes the activity by him/herself with no assistance from a helper. 5-Set-up or Clean-up Assistance-helper sets up or cleans up; patient completes activity. [place] assists only prior to or following the activity. 4-Supervision or Touching Assistance-helper provides verbal cues and/or touching/steadying and/or contact guard assistance as patient completes activity. Assistance may be provided throughout the activity or intermittently. 3-Partial/Moderate Assistance-helper does LESS THAN HALF the effort. [place] lifts, holds or supports trunk or limbs, but provides less than half the effort. 2-Substantial/Maximal Assistance-helper does MORE THAN HALF the effort. [place] lifts or holds trunk or limbs and provides more than half the effort. 5-Tlcgmidlv-socdnl does ALL the effort. Patient does none of the effort to complete the activity. Or, the assistance of 2 or more helpers is required for the patient to complete the activity. If activity was not attempted, code reason: 7-Patient Refused. 9-Not Applicable-not attempted and the patient did not perform the activity before the current illness, exacerbation or injury. 10-Not Attempted due to Environmental Limitations-(lack of equipment, weather restraints, etc.). 88-Not Attempted due to Medical Conditions or Safety Concerns. Eating (QC): 6 Toileting Hygiene (QC): 3 (Mod assist) Education OT Patient Education: Modified ADL techniques, Purpose of tx/functional activities, Safety issues Teaching Recipient: Patient Teaching Methods: Discussion Response to Teaching: Verbalize Understanding OT Short Term Goals Short Term Goals Time Frame: Oct 09, 2020 Oral hygiene: 5 Toileting hygiene: 3 Upper body dressin Lower body dressin OT Tax Economist Goals Tax Economist Goals Time Frame: Oct 20, 2020 Eating (QC): 6 Oral Hygiene (QC): 6 Toileting Hygiene (QC): 5 Shower/Bathe Self (QC): 5 Upper Body Dressing (QC): 6 Lower Body Dressing (QC): 6 On/Off Footwear (QC): 6 Additional Goals: 1-Demonstrate ADL Tasks, 2-Verbalize Understanding, 3-ImproveStrength/Cristin 1=Demonstrate adherence to instructed precautions during ADL tasks. 2=Patient will verbalize/demonstrate understanding of assistive devices/modifications for ADL. 3=Patient will improve strength/tolerance for activity to enable patient to perform ADL's. OT Education/Plan Problem List/Assessment Due to a COVID-19 viral infection, patient has deficits that warrant inpatient Acute Rehab. The patient will clearly benefit from intensive PT and OT; however, due to the patient's observed endurance and therapy considerations, he may not be able to tolerate the full 3 hours of scheduled therapy. Therefore, he will be scheduled for as much therapy as he can tolerate with intentional rest/recovery breaks, shortened sessions, including providing therapy across 6 to 7 days. As the patient tolerates, the intensity, frequency and duration of his therapy program will be increased. Discharge Recommendations Plan/Recommendations: Continue POC Treatment Plan/Plan of Care Patient would benefit from OT for education, treatment and training to promote independence in ADL's, mobility, safety and/or upper extremity function for ADL's. Plan of Care: ADL Retraining, Functional Mobility, Group Exercise/Act as Ind (to increase activity tolerance, functional mobility, ADLs, strength, socialization), UE Funct Exercise/Act, UE Neuromus Re-Ed/Coord, W/C Management Training, OTHER (energy conservation education) Treatment Duration: Oct 20, 2020 Frequency: Modified Program (IRF) Estimated Hrs Per Day: 1 hour per day Agreement: Yes Rehab Potential: Good Time/GCodes Start Time: 13:20 Stop Time: 13:50 Total Time Billed (hr/min): 30 Billed Treatment Time visit, 30 minutes ADL BENNETT SEVERINO OT Oct 02, 2020 14:01
--- NOTE | 2020-10-02 14:18 | Physical Therapy Evaluation ---
PT Evaluation-General Medical Diagnosis Admission Date Oct 02, 2020 at 12:00 Medical Diagnosis: critical illness myopathy Onset Date: Sep 27, 2020 Therapy Diagnosis Therapy Diagnosis: impaired mobility, strength, endurance Precautions Precautions/Isolations: Standard Precautions Referral Physician: Stefany Elliott DO Reason for Referral: Evaluation/Treatment Medical History Pertinent Medical History: HTN Additional Medical History lupus Reviewed History: Yes Social History Home: Single Level Current Living Status: Spouse Entry Into Home: Level Entry Other Obstacles: Has family room on lower level Prior Prior Level of Function SCALE: Activities may be completed with or without assistive devices. 4-Muvpvundwj-pgtekgj completes the activity by him/herself with no assistance from a helper. 5-Set-up or Clean-up Assistance-helper sets up or cleans up; patient completes activity. [place] assists only prior to or following the activity. 4-Supervision or Touching Assistance-helper provides verbal cues and/or touching/steadying and/or contact guard assistance as patient completes activity. Assistance may be provided throughout the activity or intermittently. 3-Partial/Moderate Assistance-helper does LESS THAN HALF the effort. [place] lifts, holds or supports trunk or limbs, but provides less than half the effort. 2-Substantial/Maximal Assistance-helper does MORE THAN HALF the effort. [place] lifts or holds trunk or limbs and provides more than half the effort. 4-Yfetytsux-rbulrb does ALL the effort. Patient does none of the effort to complete the activity. Or, the assistance of 2 or more helpers is required for the patient to complete the activity. If activity was not attempted, code reason: 7-Patient Refused. 9-Not Applicable-not attempted and the patient did not perform the activity before the current illness, exacerbation or injury. 10-Not Attempted due to Environmental Limitations-(lack of equipment, weather restraints, etc.). 88-Not Attempted due to Medical Conditions or Safety Concerns. Bed Mobility: 6 Transfers (B,C,W/C): 6 Gait: 6 Indoor Mobility (Ambulation): Independent used a 4-wheeled walker previously PT Evaluation-Current Subjective Patient in bed pre tx, agrees to PT, has no complaints of pain at rest. Will be co-treating with OT for part of tx due to poor patient mobility, strength, endurance, safety and reduce risk of falls, low O2 sats, the need to coordinate UE and LE during activity. Pt/Family Goals "to go home" Objective Patient Orientation: Person, Place, Situation Attachments: Oxygen ROM/Strength ROM Lower Extremities limited due to swelling and obesity Strength Lower Extremities LLE (hip flexion 3/5, knee flexion 4/5, knee extension 4+/5), RLE (hip flexion 3/5, knee flexion 4/5, knee extension 4+/5), patient has foot drop bilaterally and uses AFO's Sensory Hand Dominance: Right Sensation Right Lower Extremit: Impaired Sensation Left Lower Extremity: Impaired Transfers Roll Left & Right (QC): 6 Sit to Lying (QC): 4 Lying to Sitting/Side of Bed(Q: 4 Sit to Stand (QC): 3 Chair/Gzx-ci-Dgwsv Xfer(QC): 4 Toilet Transfer (QC): 4 Car Transfer (QC): 3 Patient performs bed mobility with independence, supine <-> sit SBA, sit <-> stand min assist, transfers CGA, car transfer mod assist. Patient needs cues with every stand and transfer for hand placement and safety. Gait Does the Patient Walk?: Yes Mode of Locomotion: Walk Anticipated Mode of Locomotion: Walk Walk 10 feet (QC): 4 Walk 50 ft with 2 Turns(QC): 88 Walk 150 ft (QC): 88 Walking 10ft/uneven surface-QC: 88 Distance: 15', 10' Gait Assistive Device: FWW Comments/Gait Description Patient can ambulate 15' with a rolling walker with CGA. Patient's ambulation i s unsteady, gets SOB quickly, needs a significant recovery time, O2 goes into the 80's. Wheelchair Training Does the Pt Use a Wheelchair?: Yes Distance: 50' Wheel 50 ft with 2 turns (QC): 4 Wheel 150 ft (QC): 88 Type of Wheelchair: Manual 120', SBA, slow, needs occasional rest break Stairs 1 Step (curb) (QC): 88 4 Steps (QC): 88 12 Steps (QC): 88 Balance Sitting Static: Normal Sitting Dynamic: Normal Standing Static: Fair Standing Dynamic: Poor Picking up an Object (QC): 88 Treatment PT performed bed mobility and transfers, ambulation, WC mobility, dressing, OT peformed UE safety and positioning during activity. Assessment/Needs Patient has impaired mobility, strength, endurance. He gets SOB with activity and needs frequent rest breaks to recover, his O2 goes into the 80's very quickly. Patient in recliner post tx with nurse call, phone, tray, all needs met, OT to continue to work with patient for a while. Rehab Potential: Fair PT Short Term Goals Short Term Goals Time Frame: Oct 09, 2020 Roll Left & Right: 6 Sit to lyin Lying to sitting on side of be: 5 Sit to stand: 4 Chair/azx-zs-kckmb transfer: 4 Walk 10 feet: 4 Walk 50 feet with two turns: 4 PT Certified Emergency Vehicle Technician Goals Certified Emergency Vehicle Technician Goals PT Mcfp Goals Time Frame: Oct 23, 2020 Roll Left & Right (QC): 6 Sit to Lying (QC): 6 Lying-Sitting on Side/Bed(QC): 6 Sit to Stand (QC): 5 Chair/Ynm-kw-Xwuga Xfer(QC): 5 Toilet Transfer (QC): 5 Car Transfer (QC): 4 Does the Patient Walk: Yes Walk 10 feet (QC): 5 Walk 50ft with 2 Turns (QC): 5 Walk 150 ft (QC): 5 Walking 10ft on Uneven Surface: 4 1 Step (curb) (QC): 4 4 Steps (QC): 4 12 Steps (QC): 88 Picking up an Object (QC): 88 Wheel 50 feet with 2 turns (QC: 6 Wheel 150 feet: 6 PT Plan Problem List Problem List: Activity Tolerance, Functional Strength, Safety, Balance, Gait, Transfer, Bed Mobility, ROM Treatment/Plan Treatment Plan: Continue Plan of Care Treatment Plan: Bed Mobility, Education, Functional Activity Cristin, Functional Strength, Group Therapy, Gait, Safety, Therapeutic Exercise, Transfers Treatment Duration: Oct 23, 2020 Frequency: Modified Program (IRF) Estimated Hrs Per Day: 1.5 hours per day Patient and/or Family Agrees t: Yes Due to a covid -19 viral infection, the patient has deficits that warrant inpatient Acute Rehab. The patient will clearly benefit from intensive PT and OT, however, due to patient's observed endurance and therapy considerations, he may not be able to tolerate the full 3 hours of scheduled therapy. Therefore, he will be scheduled for as much therapy as he can tolerate with intentional rest breaks, shortened sessions, including providing therapy across 6 to 7 days. As the patient tolerates, the intensity, frequency, and duration of his therapy program will be increased. Safety Risks/Education Patient Education: Gait Training, Transfer Techniques, Correct Positioning, W/C Management, Safety Issues Teaching Recipient: Patient Teaching Methods: Demonstration, Discussion Response to Teaching: Reinforcement Needed Discharge Recommendations Plan Patient will perform bed mobility and transfer training, balance and endurance training, functional strengthening, stair training, gait training, and education, to improve functional mobility and independence at home. Therapy Discharge Recommendati: Scheduled Assistance, Home & Family Time/GCodes Time In: 1100 Time Out: 1200 Total Billed Treatment Time: 50 Total Billed Treatment 1 visit EVM 25' FA 25' PT eval from [id number], OT eval from [id number], co-treat from [id number] TITO SCHMITT PT Oct 02, 2020 14:18
[2020-10-02] MEDS ORDERED: ACETAMINOPHEN 325 MG TABLET PO PRN (14:45)
--- NOTE | 2020-10-02 14:51 | Physical Therapy Daily Note ---
PT Daily Note-Current Subjective Patient in bed pre tx, agrees to PT, has no complaints of pain. Appearance Patient in bed post tx with nurse call, phone, tray, all needs met. Mental Status Patient Orientation: Person, Place, Situation Attachments: Oxygen Transfers SCALE: Activities may be completed with or without assistive devices. 2-Eurccxpsob-bayurug completes the activity by him/herself with no assistance from a helper. 5-Set-up or Clean-up Assistance-helper sets up or cleans up; patient completes activity. [place] assists only prior to or following the activity. 4-Supervision or Touching Assistance-helper provides verbal cues and/or touching/steadying and/or contact guard assistance as patient completes activity. Assistance may be provided throughout the activity or intermittently. 3-Partial/Moderate Assistance-helper does LESS THAN HALF the effort. [place] lifts, holds or supports trunk or limbs, but provides less than half the effort. 2-Substantial/Maximal Assistance-helper does MORE THAN HALF the effort. [place] lifts or holds trunk or limbs and provides more than half the effort. 1-Gcvnpmfvz-nzcwmx does ALL the effort. Patient does none of the effort to complete the activity. Or, the assistance of 2 or more helpers is required for the patient to complete the activity. If activity was not attempted, code reason: 7-Patient Refused. 9-Not Applicable-not attempted and the patient did not perform the activity before the current illness, exacerbation or injury. 10-Not Attempted due to Environmental Limitations-(lack of equipment, weather restraints, etc.). 88-Not Attempted due to Medical Conditions or Safety Concerns. Exercises Supine Ex: Quad Set, Glut sets, Heel Slides, Short Arc Quads, Hip abd/add Supine Reps: 20 Treatments LE exercise Assessment Current Status: Fair Progress Patient needed several rest breaks to to fatigue and SOB PT Short Term Goals Short Term Goals Time Frame: Oct 09, 2020 Roll Left & Right: 6 Sit to lyin Lying to sitting on side of be: 5 Sit to stand: 4 Chair/szf-uk-bgvlz transfer: 4 Walk 10 feet: 4 Walk 50 feet with two turns: 4 PT Detention Goals Detention Goals PT Body Builder Goals Time Frame: Oct 23, 2020 Roll Left & Right (QC): 6 Sit to Lying (QC): 6 Lying-Sitting on Side/Bed(QC): 6 Sit to Stand (QC): 5 Chair/Gxy-pj-Qobyd Xfer(QC): 5 Toilet Transfer (QC): 5 Car Transfer (QC): 4 Does the Patient Walk: Yes Walk 10 feet (QC): 5 Walk 50ft with 2 Turns (QC): 5 Walk 150 ft (QC): 5 Walking 10ft on Uneven Surface: 4 1 Step (curb) (QC): 4 4 Steps (QC): 4 12 Steps (QC): 88 Picking up an Object (QC): 88 Wheel 50 feet with 2 turns (QC: 6 Wheel 150 feet: 6 PT Plan Problem List Problem List: Activity Tolerance, Functional Strength, Safety, Balance, Gait, Transfer, Bed Mobility, ROM Treatment/Plan Treatment Plan: Continue Plan of Care Treatment Plan: Bed Mobility, Education, Functional Activity Cristin, Functional Strength, Group Therapy, Gait, Safety, Therapeutic Exercise, Transfers Treatment Duration: Oct 23, 2020 Frequency: Modified Program (IRF) Estimated Hrs Per Day: 1.5 hours per day Patient and/or Family Agrees t: Yes Safety Risks/Education Patient Education: Correct Positioning, Safety Issues Teaching Recipient: Patient Teaching Methods: Demonstration, Discussion Response to Teaching: Reinforcement Needed Time/GCodes Time In: 1435 Time Out: 1450 Total Billed Treatment Time: 15 Total Billed Treatment 1 visit EX TITO MEDINA PT Oct 02, 2020 14:51
--- NOTE | 2020-10-02 15:16 | ST Cognitive Linguistic Eval ---
Speech Evaluation-General Medical Diagnosis critical illness myopathy Onset Date: Sep 27, 2020 Therapy Diagnosis Therapy Diagnosis: Cognitive Communication Referral Referring Physician: Dr. Elliott Medical History Pertinent Medical History: HTN Reviewed History: Yes Social History Current Living Status: Spouse Speech PLF-Current Status Prior Level of Function Patient lives at home where he was independent for daily activities. Subjective Patient was cooperative with the cognitive assessment. Language Eval: Auditory Comprehends Simple Yes/No Ques: Functional Indent/Objects Multiple [place]: Functional Ident/Pics in Multiple [place]: Functional Follows 1-Step Commands: Functional Follows Complex Directions: Functional Follows General Conversations: Functional Language Eval: Verbal Language Completes Spontaneous Greeting: Functional Produces Auto, Serial Info: Functional Imitates Simple Words/Phrases: Functional Word Finding: Functional Requests Basic Needs: Functional States Basic Personal Info: Functional Expresses Complex Ideas: Functional Objective Cognitive Domain Attention: WNL Memory: WNL Problem Solving: Functional Executive Functions: WNL Visuospatial Skills: WNL Composite Severity Rating: WNL Clock Drawing Severity Rating: WNL Objective Formal/Standardized Tests [facility] Status ([facility]) Results 27/30, within normal range of function Oral Motor/Speech Production Within Normal Limits Impression Patient is a 69 y/o male who was admitted to the ARU s/p COVID dx. Patient was evaluated at bedside with the [facility] with a score of 27/30 obtained. This score is within the normal range of function. Patient does not require further ST services at this time. Speech Patient Assess Expression of Ideas/Wants: Expression (4) Understanding Verbal Content: Understands (4) Brief Interview-Mental Status: Yes Repetition of Three Words: Three (3) Temporal Orientation: Year: Correct (3) Temporal Orientation: Month: Accurate within 5 days(2) Temporal Orientation: Day: Correct (1) Recall : Wear to say "Sock": Yes, no cue required (2) Recall : Color: Yes, after cueing (1) Recall : Bed: Yes,after cueing (1) Memory/Recall Ability: Current season, Location of own room, That he or she is in a hsp/hsp unit Speech-Plan Patient/Family Goals Patient/Family Goals: Patient plans on returning to his home where he lives with his . Treatment Plan Speech Therapy Treatment Plan: Discontinue ST Treatment Duration: Oct 02, 2020 Frequency: 1 time per week Estimated Hrs Per Day: .25 hour per day Rehab Potential: Fair Barriers to Learning: None identified Pt/Family Agrees to Plan: Yes Safety Risks/Education Teaching Recipient: Patient Teaching Methods: Discussion Response to Teaching: Verbalize Understanding Education Topics Provided: Safety within his room, communication of wants/needs Time Speech Therapy Time In: 15:00 Speech Therapy Time Out: 15:15 Total Billed Time: 15 Billed Treatment Time 1, LEDANDMARCIN Mathis Oct 02, 2020 15:16
--- NOTE | 2020-10-02 16:39 | CONSULTATION REPORT ---
DATE OF SERVICE: 10/02/2020 ATTENDING PHYSICIAN: Dr. Elliott. SUMMARY: A 69-year-old white man that I have seen before once in 03/2018 for presumed hydrocele, what he really had was generalized edema with edema of the genitalia and scrotal wall. His prostate was felt flat and benign at that time. His PSA was normal at 1.76. He apparently now has been having some urinary incontinence. He had seen Dr. Cortez's nurse practitioner, he does not remember when, for the incontinence. He is on Flomax. He was told he may be able to have surgery, but it would not correct the problem. They never did any cystoscopy or any procedures to see what the problem was. On physical exam, he does have edema of the lower extremity up to the lower abdomen and the genitalia like always. His main complaint is the urgency with urgency incontinence. He says he has a good stream, feels emptying. IMPRESSION: 1. Urinary incontinence. 2. Overactive bladder versus BPH versus combination. PLAN: 1. Bladder scan postvoid residual. 2. Cystoscopy tomorrow at bedside, flexible, was fully explained to the patient and all of his questions were answered. Job ID: [id number] DocumentID: [id number] Dictated Date: 10/02/2020 13:11:48 Care Giver Date: 10/02/2020 16:39:02 Dictated By: CLIFTON BETTENCOURT MD
[2020-10-02 16:49] VITALS: BP 135/70
[2020-10-02] MEDS ORDERED: RT-ALBUTEROL SULF 2.5 MG/3 ML PRE-MIX VIAL IH PRN (19:30)
[2020-10-02] MEDS ORDERED: HYDROcodone/APAP 5 MG/325 MG (LORTAB) TAB PO PRN (19:30)
[2020-10-02] MEDS ORDERED: LOPERAMIDE 2 MG (IMODIUM) TABLET PO PRN (19:30)
[2020-10-02] MEDS ORDERED: MELATONIN 3 MG TABLET PO PRN (19:30)
[2020-10-02] MEDS ORDERED: ALPRAZolam 0.25 MG (XANAX) TAB PO PRN (19:30)
[2020-10-02] MEDS ORDERED: CALCIUM CARBONATE 500 MG (TUMS) TAB.CHEW PO PRN (19:30)
[2020-10-02] MEDS ORDERED: diphenhydrAMINE 25 MG TAB (BENADRYL) PO PRN (19:30)
[2020-10-02] MEDS ORDERED: DOCUSATE SODIUM 100 MG (COLACE) CAP PO PRN (19:30)
[2020-10-02] MEDS ORDERED: ONDANSETRON 4 MG/2 ML (SDV) Z0FRAN IVP PRN (19:30)
--- NOTE | 2020-10-02 19:30 | PM&R Post Admission Assessment ---
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 He was in the midst of possible intubation but since he had the effusion resolved he averted intubation. COVID-19 was treated 1.5 weeks prior at [facility] then he returned with increased SOB and CT scan revealed large effusion and PNA. He was placed on Vanc and Esme due to recent broad spectrum abx usage. Patient ultimately improved and is now out of isolation. Urinary incontinence will be managed with Dr Leonardo. Med-surg Hospital Course: Pt had an uneventful hospital course after he was admitted form [facility] due to severe right sided pleural effusion post Covid and pneumonia. He had 3.[address] liters drained out with CT guided help with Dr. Shelby and Dr. Phipps. Overall he remained on antibiotics, transitioned to Cefdinir at [facility] and was placed on inpatient rehab for close monitoring and continued recovery. Past Sghvoym-Kfwbae-Ydqxfe Hx Past Med/Social Hx: Reviewed Nursing Past Med/Soc Hx, Reviewed and Corrections made Patient Social History Marrital Status: Employed/Student: retired Alcohol Use: Denies Use Recreational Drug Use: No Smoking Status: Former Smoker Former Smoker, Quit: Oct 02, 1990 Physical Abuse Screen: No Sexual Abuse: No Recent Foreign Travel: No Contact w/other who traveled: No Recent Hopitalizations: No Recent Infectious Disease Expo: No Immunizations Up To Date Pediatric: Yes Seasonal Allergies Seasonal Allergies: No Past Medical History Respiratory: Pneumonia, Sleep Apnea COVID Currently Using CPAP: Yes Cardiac: Chronic Edema/Swelling, High Cholesterol, Hypertension Genitourinary: Benign Prostatic Hyperpl incontinence Musculoskeletal: Arthritis, Foot Drop SLE Loss of Vision: Denies Hearing Impairment: Hard of Hearing Skin/Integumentary: Eczema History of Blood Disorders: No Adverse Reaction to Blood Bennett: No Prior Level of Function Bed Mobility: 6 Transfers: 6 Gait: 6 Indoor Mobility (Ambulation): Independent Self Care: Independent Functional Cognition: Independent 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, [employer] Current Level of Fuctioning Roll Left to Right: 6 Sit to Lyin Lying to Sitting/Side of Bed: 4 Sit to Stand: 3 Chair/Ogj-jt-Cjqsl Xfer: 4 Car Transfer: 3 Does the Patient Walk: Yes Mode of Locomotion: Walk Anticipated Mode of Locomotion: Walk Walk 10 feet: 4 Walk 50 ft with 2 Turns: 88 Walk 150 ft: 88 Walking 10ft on uneven surface: 88 Gait Assistive Device: FWW Does the Pt Use a Wheelchair: Yes Wheelchair Distance: 50' Wheel 50 ft with 2 turns: 4 Wheel 150 ft: 88 Type of Wheelchair: Manual 1 Step (curb): 88 4 Steps: 88 12 Steps: 88 Picking up an Object: 88 Eatin Oral Hygiene: 88 Shower/Bathe Self: 88 Upper Body Dressin Lower Body Dressin On/Off Footwear: 88 Toileting Hygiene: 3 (Mod assist) PM&R Allergy/Meds/Data Review Allergies Coded Allergies: No Allergy Information Available (Unverified , 09/27/20) Home Medications Scheduled Acetaminophen (Tylenol Extra Strength), 1,000 MG PO HS, (Reported) Ascorbate Calcium (Vitamin C), 500 MG PO DAILY, (Reported) Aspirin (Aspirin EC), 81 MG PO BID, (Reported) Aspirin/Acetaminophen/Caffeine (Excedrin Migraine Caplet), 2 EACH PO DAILY, (Reported) Cholecalciferol (Vitamin D3) (Vitamin D3), 25 MCG PO DAILY, (Reported) Fluticasone/Salmeterol (Advair 250-50 Diskus), 1 PUFF INH BID, (Reported) Furosemide (Furosemide), 20 MG PO 0700,1200, (Reported) Hydroxychloroquine Sulfate (Hydroxychloroquine Sulfate), 200 MG PO BID, (Reported) Losartan Potassium (Losartan Potassium), 100 MG PO HS, (Reported) Metoprolol Succinate (Metoprolol Succinate), 50 MG PO BID, (Reported) Tamsulosin HCl (Flomax), 0.4 MG PO HS, (Reported) Scheduled PRN Albuterol Sulfate (Proair Hfa), 2 PUFF IH Q4H PRN for SHORTNESS OF BREATH, (Reported) Current Medications Current Medications Reviewed Review of Systems Constitutional: see HPI, malaise, weakness Respiratory: dyspnea on exertion Genitourinary: incontinence Musculoskeletal: joint pain Physical Exam Physical Exam Vital Signs Vital Signs - First Documented 10/02/20 12:14 Temp 35.6 Pulse 76 Resp 20 B/P (MAP) 138/68 Pulse Ox 90 O2 Delivery Nasal Cannula O2 Flow Rate 5.00 Capillary Refill : Height, Weight, BMI Height: '" Weight: lbs. oz. kg; 47.69 BMI Method: General Appearance: No Apparent Distress, WD/WN, Chronically ill, Obese Eyes: Bilateral Eye Normal Inspection, Bilateral Eye PERRL HEENT: PERRL/EOMI, Normal ENT Inspection, Pharynx Normal Neck: Full Range of Motion, Normal Inspection, Non Tender, Supple, Carotid Bruit Respiratory: Chest Non Tender, Lungs Clear, No Accessory Muscle Use, No Respiratory Distress, Decreased Breath Sounds Cardiovascular: Regular Rate, Rhythm, No Gallop, No JVD, No Murmur, Normal Peripheral Pulses Gastrointestinal: Normal Bowel Sounds, No Organomegaly, No Pulsatile Mass, Non Tender, Soft Back: Normal Inspection, No CVA Tenderness, No Vertebral Tenderness Extremity: Normal Capillary Refill, Normal Inspection, Normal Range of Motion, Non Tender, No Calf Tenderness, Pedal Edema Neurologic/Psychiatric: Alert, Oriented x3, No Motor/Sensory Deficits, Normal Mood/Affect, Abnormal Gait, Motor Weakness (all extremities 4/5), Other (foot drop bilateral) Skin: Normal Color, Warm/Dry Lymphatic: No Adenopathy PM&R Medical Assessment & Plan REHAB/MEDICAL ASSESSMENT AND PLAN: REHAB IMPAIRMENT GROUP: Critical illness myopathy ETIOLOGIC DIAGNOSIS: Critical illness myopathy The comorbidities that impact the patients function and/or functional outcome by: bilateral chronic foot drop with braces, obesity, recent COVID, hypoxia, severe debility, urinary incontinence REHAB PLAN: The patient is being admitted to our comprehensive inpatient rehabilitation facility and can tolerate the intensity of service consisting of at least: 180 minutes of therapy a day, 5 out of 7 days a week Rehab treatment will consist of: PT OT will focus on regaining function and inc rease independence in ADL's and wean O2 and teach energy conservation and enable patient to return home to live independently The patient/family has a good understanding of our discharge process and will benefit from an interdisciplinary inpatient rehabilitation program. The patient has potential to make improvement and is in need of at least two of the following multidisciplinary therapies including but not limited to physical, occupational, speech, and prosthetics and orthotics. Additionally the patient will need services from respiratory, nutritional services, wound care, psychology, etc. (Customize this to each patient). Given the patients complex condition and risk of further medical complications, rehabilitation services cannot be safely or effectively provided at a lower level of care such as a prison facility. BARRIERS TO DISCHARGE: Severe debility from COVID 19 ESTIMATED LOS: 7 days DISPOSITION: Home RELEVANT CHANGES SINCE PREADMISSION SCREENING: I have compared the patients medical and functional status at the time of the preadmission screening and there are: no changes PROGNOSIS: Good REHABILITATION GOALS: 1. PT OT will focus on regaining function and increase independence in ADL's and wean O2 and teach energy conservation and enable patient to return home to live independently All the above goals were reviewed with the patient and he/she is in agreement. By signing this document, I acknowledge that I have personally performed a full physical examination on this patient within 24 hours of admission to this inpatient rehabilitation facility and have determined the patient to be able to tolerate the above course of treatment at an intensive level for a reasonable period of time. I will be completing a detailed individualized Plan of Care for this patient by day #4 of the patients stay based upon the Preadmission Screen, the Post-Admission Evaluation, and the therapy evaluations. Admission Dx/Comorbidities: (1) COVID-19 ICD Codes: U07.1 - COVID-19 (2) Pleural effusion on right ICD Codes: J90 - Pleural effusion, not elsewhere classified (3) SLE (systemic lupus erythematosus related syndrome) ICD Codes: M32.9 - Systemic lupus erythematosus, unspecified (4) Obesity ICD Codes: E66.9 - Obesity, unspecified (5) Hypertension ICD Codes: I10 - Essential (primary) hypertension (6) Hypoxia ICD Codes: R09.02 - Hypoxemia (7) Respiratory insufficiency ICD Codes: R06.89 - Other abnormalities of breathing (8) Hypercapnia ICD Codes: R06.89 - Other abnormalities of breathing Assessment/Plan Assessment and Plan Assess & Plan/Chief Complaint Assessment: Critical illness myopathy Obesity SATISH Right sided pleural effusion SLE Urinary incontinence HTN Foot drop Plan: Monitor BP Monitor O2 PT OT protocol Wean O2 ISI HOPSON DO Oct 02, 2020 19:30
[2020-10-02] MEDS ORDERED: ENOXAPARIN 60 MG/0.6 ML (LOVENOX) SYR ONE (20:48)
[2020-10-02] MEDS ORDERED: ENOXAPARIN 100 MG/1 ML (LOVENOX) SYR ONE (20:48)
[2020-10-02] MEDS: CEFDINIR 300 MG (OMNICEF) CAP PO SCH (20:59)
[2020-10-02] MEDS: ASPIRIN E.C. 81 MG (ECOTRIN) TAB PO SCH (20:59)
[2020-10-02] MEDS: methylPREDNISolone 40 MG/ML (Solu-MEDROL) VIAL IV SCH (21:00)
[2020-10-02] MEDS: ACETAMINOPHEN 500 MG TAB (TYLENOL) PO SCH (21:00)
[2020-10-02] MEDS: HYDROXYCHLOROQUINE 200 MG (PLAQUENIL) TAB PO SCH (21:00)
[2020-10-02] MEDS: meTOproloL SUCCINATE 50 MG (TOPROL XL) TAB PO SCH (21:00)
[2020-10-02] MEDS: TAMSULOSIN 0.4 MG (FLOMAX) CAP PO SCH (21:00)
[2020-10-02] MEDS: LOSARTAN 100 MG (COZAAR) TABLET PO SCH (21:00)
[2020-10-02] MEDS: ENOXAPARIN 300 MG/3 ML (LOVENOX) MULTI-DOSE VIAL SQ SCH (21:01)
[2020-10-02] MEDS: ADVAIR HFA 115/21 MCG INHALER 8 GM IH SCH (21:11)
[2020-10-02] MEDS: RT-ALBUTEROL INHALER HFA (VENTOLIN HFA) 18 GM IH PRN (21:12)
[2020-10-03 05:27] LABS: BASOPHILS % (AUTO) 0 % (0-10); EOSINOPHILS % (AUTO) 0 % (0-10); HEMATOCRIT 40 % (40-54); HEMOGLOBIN 12.5 g/dL (13.3-17.7); LYMPHOCYTES # (AUTO) 0.5 10^3/uL (1.0-4.0); LYMPHOCYTES % (AUTO) 5 % (12-44); MEAN CORPUSCULAR HEMOGLOBIN 27 pg (25-34); MEAN CORPUSCULAR HGB CONC 31 g/dL (32-36); MEAN CORPUSCULAR VOLUME 87 fL (80-99); MEAN PLATELET VOLUME 10.9 fL (9.0-12.2); MONOCYTES # (AUTO) 0.7 10^3/uL (0.0-1.0); MONOCYTES % (AUTO) 7 % (0-12); NEUTROPHILS # (AUTO) 9.1 10^3/uL (1.8-7.8); NEUTROPHILS % (AUTO) 87 % (42-75); PLATELET COUNT 191 10^3/uL (130-400); WHITE BLOOD COUNT 10.5 10^3/uL (4.3-11.0)
[2020-10-03 05:31] VITALS: BP 147/75
[2020-10-03 05:44] LABS: ALBUMIN 2.8 GM/DL (3.2-4.5); CHLORIDE 100 MMOL/L (98-107); POTASSIUM 4.7 MMOL/L (3.6-5.0); SODIUM 131 MMOL/L (135-145)
[2020-10-03 05:45] LABS: CALCIUM 8.5 MG/DL (8.5-10.1)
[2020-10-03 05:46] LABS: GLUCOSE 153 MG/DL (70-105); TOTAL PROTEIN 5.8 GM/DL (6.4-8.2)
[2020-10-03 05:47] LABS: CARBON DIOXIDE 24 MMOL/L (21-32)
[2020-10-03 05:48] LABS: BILIRUBIN,TOTAL 0.7 MG/DL (0.1-1.0)
[2020-10-03 05:50] LABS: ALKALINE PHOSPHATASE 65 U/L (40-136); CREATININE SERUM 1.12 MG/DL (0.60-1.30); GFR ESTIMATED > 60
--- NOTE | 2020-10-03 05:50 | PM&R Progress Note ---
Subjective HPI/CC On Admission Date Seen by Provider: Oct 03, 2020 Time Seen by Provider: 08:30 Subjective/Events-last exam Pt doing pretty well today Remains on 7 liters per minute of oxygen Desats with any type of activity Cysto was not done due to penile edema Post void residual is a zero Review of Systems General: Fatigue, Malaise Pulmonary: Dyspnea Focused Exam Lactate Level 10/04/20 23:55: Lactic Acid Level 2.49*H 10/05/20 02:25: Lactic Acid Level 2.40*H 10/05/20 04:27: Lactic Acid Level Laboratory Tests Test 10/05/20 02:25 10/05/20 04:27 Lactic Acid Level 2.40 MMOL/L (0.50-2.00) *H Objective Exam Vital Signs Vital Signs Date Time Temp Pulse Resp B/P (MAP) Pulse Ox O2 Delivery O2 Flow Rate FiO2 10/04/20 22:40 74 24 94 45.00 10/04/20 20:13 High Flow N/C 10/04/20 17:50 35.8 111/55 (73) Capillary Refill : Less Than 3 Seconds General Appearance: No Apparent Distress, WD/WN, Chronically ill, Obese HEENT: PERRL/EOMI, Normal ENT Inspection, Pharynx Normal Neck: Full Range of Motion, Normal Inspection, Non Tender, Supple, Carotid Bruit Respiratory: Chest Non Tender, Lungs Clear, No Accessory Muscle Use, No Respiratory Distress, Decreased Breath Sounds Cardiovascular: Regular Rate, Rhythm, No Gallop, No JVD, No Murmur, Normal Peripheral Pulses Gastrointestinal: Normal Bowel Sounds, No Organomegaly, No Pulsatile Mass, Non Tender, Soft Back: Normal Inspection, No CVA Tenderness, No Vertebral Tenderness Extremity: Normal Capillary Refill, Normal Inspection, Normal Range of Motion, Non Tender, No Calf Tenderness, Pedal Edema Neurologic/Psychiatric: Alert, Oriented x3, No Motor/Sensory Deficits, Normal Mood/Affect, Abnormal Gait, Motor Weakness (all extremities 4/5), Other (foot drop bilateral) Skin: Normal Color, Warm/Dry Lymphatic: No Adenopathy Results/Procedures Lab Laboratory Tests 10/04/20 13:35 10/04/20 23:55 Patient resulted labs reviewed. FIM Transfers Therapy Code Descriptions/Definitions Functional [place] Measure: 0=Not Assessed/NA 4=Minimal Assistance 1=Total Assistance 5=Supervision or Setup 2=Maximal Assistance 6=Modified [place] 3=Moderate Assistance 7=Complete IndependenceSCALE: Activities may be completed with or without assistive devices. 1-Uknpjlackm-vsokbfl completes the activity by him/herself with no assistance fr om a helper. 5-Set-up or Clean-up Assistance-helper sets up or cleans up; patient completes activity. [place] assists only prior to or following the activity. 4-Supervision or Touching Assistance-helper provides verbal cues and/or touching/steadying and/or contact guard assistance as patient completes activity. Assistance may be provided throughout the activity or intermittently. 3-Partial/Moderate Assistance-helper does LESS THAN HALF the effort. [place] lifts, holds or supports trunk or limbs, but provides less than half the effort. 2-Substantial/Maximal Assistance-helper does MORE THAN HALF the effort. [place] lifts or holds trunk or limbs and provides more than half the effort. 9-Jrfpdxncg-inkozo does ALL the effort. Patient does none of the effort to complete the activity. Or, the assistance of 2 or more helpers is required for the patient to complete the activity. If activity was not attempted, code reason: 7-Patient Refused. 9-Not Applicable-not attempted and the patient did not perform the activity before the current illness, exacerbation or injury. 10-Not Attempted due to Environmental Limitations-(lack of equipment, weather restraints, etc.). 88-Not Attempted due to Medical Conditions or Safety Concerns. Roll Left to Right (QC): 6 Sit to Lying (QC): 4 Sit to Stand (QC): 3 Chair/Fzv-io-Xzznn Xfer(QC): 4 Car Transfer (QC): 3 Gait Training Does the Patient Walk?: Yes Walk 10 feet (QC): 4 Walk 50 ft with 2 Turns(QC): 88 Walk 150 ft (QC): 88 Walking 10ft/uneven surface-QC: 88 Gait Assistive Device: FWW Wheelchair Training Does the Pt Use a Wheelchair?: Yes Distance: 50' Wheel 50 ft with 2 turns (QC): 4 Wheel 150 ft (QC): 88 Type of Wheelchair: Manual Stair Training 1 Step (curb) (QC): 88 4 Steps (QC): 88 12 Steps (QC): 88 Balance Picking up an Object (QC): 88 ADL-Treatment Eating (QC): 6 Oral Hygiene (QC): 88 Shower/Bathe Self (QC): 88 Upper Body Dressing (QC): 88 Lower Body Dressing (QC): 88 On/Off Footwear (QC): 88 Toileting Hygiene (QC): 3 (Mod assist) Assessment/Plan Assessment and Plan Assess & Plan/Chief Complaint Assessment: Critical illness myopathy Obesity SATISH Right sided pleural effusion SLE Urinary incontinence HTN Foot drop Plan: Monitor BP Monitor O2 PT OT protocol Wean O2 10/03/20: Monitor PVR Penile edema would not allow cysto to be performed Monitor O2 (1) COVID-19 (2) Pleural effusion on right (3) SLE (systemic lupus erythematosus related syndrome) (4) Obesity (5) Hypertension (6) Hypoxia (7) Respiratory insufficiency (8) Hypercapnia ISI HOPSON DO Oct 03, 2020 05:50
[2020-10-03 05:51] LABS: BUN/CREATININE RATIO 40
--- NOTE | 2020-10-03 05:51 | Individualized Plan of Care ---
Individualized Plan of Care Rehab Nursing IPOC Order Admission Date Oct 02, 2020 at 12:00 Current Orders Orders Admission Order(Inpt,Obs,Sdc) (10/02/20 04:48) Vital Signs: Per Unit Policy ( 08,16,00 (10/02/20 04:48) Maninder Lamb 09,21 (10/02/20 04:48) Sequential Compression Device Q4H (10/02/20 04:48) Tax Adjuster-Inpt Rehab Con (10/02/20 04:48) Rehab Nursing Orders-Ipoc (10/02/20 04:48) Physical Therapy Rehab Orders (10/02/20 04:48) Occupational Therapy Rehab Ord (10/02/20 04:48) Speech Therapy Rehab Orders (10/02/20 04:48) Cbc With Automated Diff (10/03/20 06:00) Comprehensive Metabolic Panel (10/03/20 06:00) General/Regular (10/02/20 Breakfast) Intake & Output 06,14,22 (10/02/20 04:48) Precautions (Aru) (10/02/20 04:48) Weekly Weight WEEK (10/02/20 04:48) Rehab-Intensity Of Therapy (10/02/20 04:48) Initiate Admission Nursing Pro .admission (10/02/20 04:48) Alprazolam Tablet (Xanax Tablet) (10/02/20 05:00) Calcium Carbonate Chew Tablet (Antacid C (10/02/20 05:00) Diphenhydramine Tablet (Benadryl Tablet) (10/02/20 05:00) Docusate Sodium Capsule (Colace Capsule) (10/02/20 09:00) Docusate Sodium Capsule (Colace Capsule) (10/02/20 05:00) Bisacodyl Suppository (Dulcolax Supposit (10/02/20 05:00) Lactulose Oral Solution (Enulose Oral So (10/02/20 05:00) Na Phos/Na Biphos Enema (Fleet Enema Usman (10/02/20 05:00) Guaifenesin/Codeine Syrup (Robitussin Ac (10/02/20 05:00) Loperamide Tablet (Imodium Tablet) (10/02/20 05:00) Melatonin Tablet (Melatonin Tablet) (10/02/20 05:00) Polyethylene Glycol Powder Pkt (Miralax (10/02/20 09:00) Ondansetron Oral Dissolve Tab (Zofran (10/02/20 05:00) Senna S Tablet (Senokot S Tablet) (10/02/20 09:00) Code/Resuscitation (10/02/20 04:48) Initiate Admission Nursing Pro .admission (10/02/20 04:48) Admission Arrival Bed Request (10/02/20 11:23) Consent-Obtain Consent For (10/02/20 12:57) Bladder Scan (10/02/20 12:58) Ambulate ,, (10/02/20 13:29) Sequential Compression Device Q4H (10/02/20 13:29) Dvt/Vte Risk - Notifiy Physici Q4H (10/02/20 13:29) Acetaminophen Tablet/Caplet (Tylenol T (10/02/20 14:45) Patient Visit (10/02/20 ) Pt Eval Moderate Complexity (10/02/20 ) Functional Activities, Ea 15 (10/02/20 ) Exercise Therap, Ea 15 Min (10/02/20 ) Patient Visit (10/02/20 ) Speech Sound Lang Comp (10/02/20 ) Code/Resuscitation (10/02/20 19:26) General/Regular (10/02/20 Dinner) Apap/Asa/Caff (Non-Formulary) (Excedrin (10/03/20 09:00) Alprazolam Tablet (Xanax Tablet) (10/02/20 19:30) Acetaminophen Tablet (Tylenol Tablet) (10/02/20 21:00) Albuterol Inhaler (Ventolin Hfa) (10/02/20 19:30) Ascorbic Acid Tablet (Vitamin C Tablet) (10/03/20 09:00) Aspirin Enteric Coated Tablet (Ecotrin T (10/02/20 21:00) Calcium Carbonate Chew Tablet (Antacid C (10/02/20 19:30) Cefdinir Capsule (Omnicef Capsule) (10/02/20 21:00) Cholecalciferol Capsule/Tablet (Vitamin (10/03/20 09:00) Docusate Sodium Capsule (Colace Capsule) (10/02/20 19:30) Enoxaparin Injection (Mdv) (Lovenox Inje (10/02/20 20:00) Fluticasone/Salmeterol 115/21 (Advair Hf (10/02/20 20:00) Furosemide Injection (Lasix Injection) (10/03/20 07:00) Hydrocodone/Apap 5/325 Tablet (Lortab 5 (10/02/20 19:30) Hydroxychloroquine Sulfate (Plaquenil) (10/02/20 21:00) Loperamide Tablet (Imodium Tablet) (10/02/20 19:30) Losartan Tablet (Cozaar Tablet) (10/02/20 21:00) Melatonin Tablet (Melatonin Tablet) (10/02/20 19:30) Ondansetron Injection (Zofran Injectio (10/02/20 19:30) Senna S Tablet (Senokot S Tablet) (10/02/20 21:00) Tamsulosin Capsule (Flomax Capsule) (10/02/20 21:00) Diphenhydramine Tablet (Benadryl Tablet) (10/02/20 19:30) Metoprolol Succinate (Xl) Tab (Toprol Xl (10/02/20 21:00) Methylprednisolone Sod Succ (Solu-Medrol (10/02/20 21:00) Bipap (Bilevel) Set Up (10/02/20 19:26) Mat Initiate Protocol (10/02/20 19:26) Enoxaparin Injection (Lovenox Injection) (10/02/20 20:48) Enoxaparin Injection (Lovenox Injection) (10/02/20 20:48) Lidocaine 2% (Urojet) (Xylocaine Urojet) (10/03/20 07:36) Nursing Communication (Order) (10/03/20 12:23) Patient Visit (10/03/20 ) Exercise Therap, Ea 15 Min (10/03/20 ) Functional Activities, Ea 15 (10/03/20 ) Albuterol Inhaler (Ventolin Hfa) (10/04/20 08:00) Albuterol Inhaler (Ventolin Hfa) (10/03/20 21:15) Chest 1 View, Ap/Pa Only (10/04/20 07:45) Apixaban Tablet (Eliquis Tablet) (10/04/20 21:00) Cbc With Automated Diff (10/04/20 12:55) Comprehensive Metabolic Panel (10/04/20 12:55) Lactic Acid Analyzer (10/04/20 12:55) Procalcitonin (Pct) (10/04/20 12:55) BNP (10/04/20 12:55) Troponin I (10/04/20 12:55) Consult Cardiology (10/04/20 12:55) Arterial Blood Gas (10/04/20 12:55) Arterial Blood Draw (10/04/20 12:55) Telemetry (10/04/20 12:55) Telemetry Nursing Assessment ( (10/04/20 12:55) Erythrocyte Sedimentation Rate (10/04/20 12:55) Fibrin Degradation Products (10/04/20 12:55) Ferritin (10/04/20 12:55) Echo W Doppler/Color Flow (10/04/20 13:04) Nursing Communication (Order) (10/04/20 13:07) Metoprolol Succinate (Xl) Tab (Toprol Xl (10/05/20 09:00) Losartan Tablet (Cozaar Tablet) (10/05/20 09:00) Patient Visit (10/04/20 ) Exercise Therap, Ea 15 Min (10/04/20 ) Functional Activities, Ea 15 (10/04/20 ) Manual Differential (10/04/20 13:35) Troponin I (10/04/20 14:17) Ns Iv 1000 Ml (Sodium Chloride 0.9%) (10/04/20 14:30) Ekg Tracing (10/04/20 14:26) Piperacillin/Tazobactam (Bulk) (Zosyn In (10/04/20 20:00) Vancomycin Injection (Vancomycin Injecti (10/04/20 15:30) Blood Culture (10/04/20 15:27) Ua Culture If Indicated (10/04/20 15:33) Piperacillin/Tazobactam (Bulk) (Zosyn In (10/04/20 16:00) Cbc With Automated Diff (10/04/20 23:09) Basic Metabolic Panel (10/04/20 23:09) Magnesium (10/04/20 23:09) Phosphorus (10/04/20 23:09) Lactic Acid Analyzer (10/04/20 23:09) Ekg Tracing (10/04/20 23:09) Arterial Blood Draw (10/04/20 23:09) Transfer - Bed/Room/Location (10/04/20 23:13) Arterial Blood Gas (10/04/20 23:21) Arterial Blood Draw (10/04/20 ) Rehab Nursing Orders: Ongoing Assess. of Cognitive Status, Ongoing Assess. of Function Status, Bladder Management, Bladder Scan, Bladder Training, Bowel Management, Bowel Training, Disease Management & Educaiton, DVT Prophylaxis, Fall Prevention, Fluid/Electrolyte/Nutrition Mgmt, Infection Prevention, Medication Management & Education, Management of Risks & Complications, Management of Skin Intergrity, Nutrition Management, Pain Management, Patient/Family Support, Safety Management Intensity of Therapy to be met Patient to be seen: Min.3h per day/5 of 7d PT IPOC Problem List: Activity Tolerance, Functional Strength, Safety, Balance, Gait, Transfer, Bed Mobility, ROM Treatment Plan: Continue Plan of Care Bed Mobility, Education, Functional Activity Cristin, Functional Strength, Group Therapy, Gait, Safety, Therapeutic Exercise, Transfers Treatment Duration: Oct 23, 2020 Frequency: Modified Program (IRF) Estimated Hrs Per Day: 1.5 hours per day OT IPOC Problems: Decreased Activ Tolerance, Decreased UE Strength, Dependent Transfers, Impaired Funct Balance, Impaired Self-Care Skills OT Treatment, Training and Edu: Yes OT Problems Due to a COVID-19 viral infection, patient has deficits that warrant inpatient Acute Rehab. The patient will clearly benefit from intensive PT and OT; however, due to the patient's observed endurance and therapy considerations, he may not be able to tolerate the full 3 hours of scheduled therapy. Therefore, he will be scheduled for as much therapy as he can tolerate with intentional rest/recovery breaks, shortened sessions, including providing therapy across 6 to 7 days. As the patient tolerates, the intensity, frequency and duration of his therapy program will be increased. Plan of Care: ADL Retraining, Functional Mobility, Group Exercise/Act as Ind (to increase activity tolerance, functional mobility, ADLs, strength, socialization), UE Funct Exercise/Act, UE Neuromus Re-Ed/Coord, W/C Management Training, OTHER (energy conservation education) Treatment Duration: Oct 20, 2020 Frequency: Modified Program (IRF) Estimated Hrs Per Day: [address] IPOC Speech Therapy Treatment Plan: Discontinue ST Treatment Duration: Oct 02, 2020 Frequency: 1 time per week Estimated Hrs Per Day: .25 hour per day Tax Adjuster/Case Mgmt Tax Adjuster/Case Managemen: Discharge Planning Dietitian/Mixed Signal Design Engineer Dietitian/Mixed Signal Design Engineer to monitor nutritional status and make changes and/or recommendations as needed and work with speech pathology on dietary upgrades as the occur. Physician IPOC Medical Issues being managed closely and that require the 24 hour availability of a physician: Recent COVID 19 with continued hypoxia and poor exercise tolerance will be at high risk for decompensation will need close physician supervision Medical Issues: Bowel/Bladder Function, DVT Prophylaxis, Falls Precautions, Fluid/Electrolyte/Nutrition Balance, Infection Protection, Pain Management Brief Synthesis of Preadmission Screen, Post-Admission Evaluation, and Therapy Evaluations: PT OT will focus on regaining function in order to return to independent living Medical Prognosis: Fair Anticipated Length of Stay: 10 days ISI HOPSON DO Oct 03, 2020 05:51
[2020-10-03 05:53] LABS: ALANINE AMINOTRANSFERASE 33 U/L (0-55)
[2020-10-03] MEDS: FUROSEMIDE 40 MG/4 ML INJ (LASIX) IVP SCH ×2 (06:26→17:44)
--- NOTE | 2020-10-03 07:22 | Progress Note-Pre Operative ---
Pre-Operative Progress Note H&P Reviewed The H&P was reviewed, patient examined and no changes noted. Date Seen by Provider: Oct 03, 2020 Time Seen by Provider: 07:21 Date H&P Reviewed: Oct 03, 2020 Time H&P Reviewed: 07:21 Pre-Operative Diagnosis: BPH AND INCONTINENCE CLIFTON BETTENCOURT MD Oct 03, 2020 07:22
[2020-10-03] MEDS ORDERED: LIDOCAINE UROJET 2% GEL 10 ML PKG ONE (07:36)
[2020-10-03 08:00] VITALS: BP 135/72
[2020-10-03] MEDS: VITAMIN D3 25 MCG (1,000 UNITS) TABLET PO SCH (08:22)
[2020-10-03] MEDS: meTOproloL SUCCINATE 50 MG (TOPROL XL) TAB PO SCH ×2 (08:22→20:49)
[2020-10-03] MEDS: CEFDINIR 300 MG (OMNICEF) CAP PO SCH ×2 (08:22→20:50)
[2020-10-03] MEDS: ASCORBIC ACID (VIT C) 500 MG TABLET PO SCH (08:22)
[2020-10-03] MEDS: HYDROXYCHLOROQUINE 200 MG (PLAQUENIL) TAB PO SCH ×2 (08:22→20:52)
[2020-10-03] MEDS: methylPREDNISolone 40 MG/ML (Solu-MEDROL) VIAL IV SCH ×2 (08:23→20:48)
[2020-10-03] MEDS: DOCUSATE SODIUM 100 MG (COLACE) CAP PO SCH ×2 (08:28→20:57)
[2020-10-03] MEDS: ENOXAPARIN 300 MG/3 ML (LOVENOX) MULTI-DOSE VIAL SQ SCH ×2 (08:28→20:47)
[2020-10-03] MEDS: SENNA W/DOCUSATE (SENOKOT S) TABLET PO SCH ×4 (08:29→20:57)
[2020-10-03] MEDS: polyethylene glycoL POWDER 17 GM (MIRALAX) PACK PO SCH ×2 (08:29→20:57)
[2020-10-03] MEDS ORDERED: EXCEDRIN MIGRAINE PO SCH (09:00)
--- NOTE | 2020-10-03 09:00 | Progress Note-Post Operative ---
Post-Operative Progess Note Surgeon (s)/Station Inspector (s) Surgeon CLIFTON BETTENCOURT MD Station Inspector: NONE Pre-Operative Diagnosis BPH AND INCONTINENCE Post-Operative Diagnosis SAME Procedure & Operative Findings Date of Procedure 10/03/20 Procedure Performed/Findings CYSTOSCOPY Anesthesia Type LOCAL Estimated Blood Loss Estimated blood loss (mL): NONE Specimens/Packing Specimens Removed NONE Packing: NONE CLIFTON BETTENCOURT MD Oct 03, 2020 09:00
[2020-10-03] MEDS: ADVAIR HFA 115/21 MCG INHALER 8 GM IH SCH ×2 (10:36→20:08)
[2020-10-03] MEDS: ASPIRIN E.C. 81 MG (ECOTRIN) TAB PO SCH ×2 (11:58→20:49)
--- NOTE | 2020-10-03 11:58 | Physical Therapy Daily Note ---
PT Daily Note-Current Subjective Pt. in bed , shares right off that he wants to be home for his birthday the 1[birth year]. This ATOMIC SPECTROSCOPIST expressing that we would like his breathing to be improved before he leaves. "You listen here, I'll get up and walk out of here! I have help at home and I'm not staying much longer" After attempting mobility and having difficulty breathing and moving pt. states " I'm sorry I'm so grouchy , I dont know why I cant do this" Pt. wants in bed for meal, declines being up in w/c or recliner for meal Pain Location: No Pain Reported Mental Status Patient Orientation: Normal For Age Attachments: Oxygen (8L) Transfers SCALE: Activities may be completed with or without assistive devices. 8-Juucdlidmg-mjwnctu completes the activity by him/herself with no assistance from a helper. 5-Set-up or Clean-up Assistance-helper sets up or cleans up; patient completes activity. [place] assists only prior to or following the activity. 4-Supervision or Touching Assistance-helper provides verbal cues and/or touching/steadying and/or contact guard assistance as patient completes activity. Assistance may be provided throughout the activity or intermittently. 3-Partial/Moderate Assistance-helper does LESS THAN HALF the effort. [place] lifts, holds or supports trunk or limbs, but provides less than half the effort. 2-Substantial/Maximal Assistance-helper does MORE THAN HALF the effort. [place] lifts or holds trunk or limbs and provides more than half the effort. 1-Gfwrxpdrk-yjbpgw does ALL the effort. Patient does none of the effort to complete the activity. Or, the assistance of 2 or more helpers is required for the patient to complete the activity. If activity was not attempted, code reason: 7-Patient Refused. 9-Not Applicable-not attempted and the patient did not perform the activity before the current illness, exacerbation or injury. 10-Not Attempted due to Environmental Limitations-(lack of equipment, weather restraints, etc.). 88-Not Attempted due to Medical Conditions or Safety Concerns. Roll Left & Right (QC): 4 Sit to Lying (QC): 5 Lying to Sitting/Side of Bed(Q: 5 Sit to Stand (QC): 3 (with bed raised at high level) pt. with difficulty sit to stand, attempting multiple trials to stand at EOB requiring great effort with O2 sats dropping to 82% and pt. c/o SOB, pt. then sat to rest EOB. Pt. did demonstrate in out bed indep. Gait Training pt took side steps at EOB to move up in to bed approx 6 ft resting each time he sat down with some SOB Exercises Supine Ex: Ankle pumps, Heel Slides, Straight leg raise Supine Reps: 12 Treatments O2 sats dropping with all activity, O2 at 8 L, sats dropping to 70s with bed mobility and SLRs .Pt needing time to recover Assessment Current Status: Fair Progress O2 sats dropping with activity PT Short Term Goals Short Term Goals Time Frame: Oct 09, 2020 Roll Left & Right: 6 Sit to lyin Lying to sitting on side of be: 5 Sit to stand: 4 Chair/zqu-tj-madfa transfer: 4 Walk 10 feet: 4 Walk 50 feet with two turns: 4 PT Job Site Supervisor Goals Job Site Supervisor Goals PT Senior [facility] Goals Time Frame: Oct 23, 2020 Roll Left & Right (QC): 6 Sit to Lying (QC): 6 Lying-Sitting on Side/Bed(QC): 6 Sit to Stand (QC): 5 Chair/Trh-qq-Vkulz Xfer(QC): 5 Toilet Transfer (QC): 5 Car Transfer (QC): 4 Does the Patient Walk: Yes Walk 10 feet (QC): 5 Walk 50ft with 2 Turns (QC): 5 Walk 150 ft (QC): 5 Walking 10ft on Uneven Surface: 4 1 Step (curb) (QC): 4 4 Steps (QC): 4 12 Steps (QC): 88 Picking up an Object (QC): 88 Wheel 50 feet with 2 turns (QC: 6 Wheel 150 feet: 6 PT Plan Treatment/Plan Treatment Plan: Continue Plan of Care Treatment Plan: Bed Mobility, Education, Functional Activity Cristin, Functional Strength, Group Therapy, Gait, Safety, Therapeutic Exercise, Transfers Treatment Duration: Oct 23, 2020 Frequency: Modified Program (IRF) Estimated Hrs Per Day: 1.5 hours per day Patient and/or Family Agrees t: Yes Safety Risks/Education Patient Education: Transfer Techniques, Correct Positioning, Disease Process, Safety Issues Teaching Recipient: Patient Teaching Methods: Discussion Response to Teaching: Reinforcement Needed pt. adamant that he is leaving , this ATOMIC SPECTROSCOPIST attempting to explain that his O2 levels are an issue and functional mobility and strength will be tied to this directly Time/GCodes Time In: 1115 Time Out: 1200 Total Billed Treatment Time: 45 Total Billed Treatment 1,EX10m,FA35m RADHA REYES ATOMIC SPECTROSCOPIST Oct 03, 2020 11:58
--- NOTE | 2020-10-03 13:53 | Occupational Ther Daily Note ---
OT Current Status-Daily Note Subjective No pain reported. Appearance Pt. in bed. Nursing in room. Pt. agrees to work with OT. Mental Status/Objective Patient Orientation: Person, Place, Time, Situation Attachments: Oxygen ADL-Treatment Therapy Code Descriptions/Definitions Functional [place] Measure: 0=Not Assessed/NA 4=Minimal Assistance 1=Total Assistance 5=Supervision or Setup 2=Maximal Assistance 6=Modified [place] 3=Moderate Assistance 7=Complete IndependenceSCALE: Activities may be completed with or without assistive devices. 9-Dnefusshac-fxenqld completes the activity by him/herself with no assistance from a helper. 5-Set-up or Clean-up Assistance-helper sets up or cleans up; patient completes activity. [place] assists only prior to or following the activity. 4-Supervision or Touching Assistance-helper provides verbal cues and/or touching/steadying and/or contact guard assistance as patient completes activity. Assistance may be provided throughout the activity or intermittently. 3-Partial/Moderate Assistance-helper does LESS THAN HALF the effort. [place] lifts, holds or supports trunk or limbs, but provides less than half the effort. 2-Substantial/Maximal Assistance-helper does MORE THAN HALF the effort. [place] lifts or holds trunk or limbs and provides more than half the effort. 8-Ckmxxhsgi-avsaps does ALL the effort. Patient does none of the effort to complete the activity. Or, the assistance of 2 or more helpers is required for the patient to complete the activity. If activity was not attempted, code reason: 7-Patient Refused. 9-Not Applicable-not attempted and the patient did not perform the activity before the current illness, exacerbation or injury. 10-Not Attempted due to Environmental Limitations-(lack of equipment, weather restraints, etc.). 88-Not Attempted due to Medical Conditions or Safety Concerns. Shower/Bathe Self (QC): 3 (Pt. did agree to wash UE, chest, face. Declines washing LE. Requires dependent assistance to wash maitlde area after BM.) Upper Body Dressing (QC): 5 (Set up to doff/don shirt.) Lower Body Dressing (QC): 2 (Pt. already had pants on that were pulled down so that he could urinate easier. Pt. also already had shoes/AFO on that he declined taking off. Nursing/PT assisted him with LE dressing and footwear.) On/Off Footwear: 2 Toileting Hygiene (QC): 2 (Pt. able to have BM in BSC, and is able to urinate into basin. OT empties this for him and cleanses him in stance.) Toilet Transfer (QC): 3 (Min assist to transfer to and from BSC. Pt. insists on putting commode directly in front of him while he is sitting on side of bed. He bends over and stands by holding arms of commode. In stance, he moves commode backward while taking steps to turn around. Pt. declines to let OT place BSC perpendicular to bed, which would be safer method.) Other Treatment Pt. insistent throughout treatment on doing things in system that he perceives is easier for him. Pt. on 7 L 02, and requires frequent rest breaks. OT takes oxygen sats after BSC transfer, and he has dipped to 7L. Pt. is encouraged to take deep breaths. Sats raise to 92% with increased time. After ADLs, pt. is educated on deep breathing exercises. He is able to return demonstrate these with no difficulty. Pt. is able to stand at bedside in short increments to make way toward HOB, with min assist. Pt. requires mod assist to transfer sit-supine. All needs met. Education OT Patient Education: Correct positioning, Modified ADL techniques, Progress toward Goal/Update tx plan, Purpose of tx/functional activities, Reviewed precautions, Rehab process, Transfer techniques Teaching Recipient: Patient Teaching Methods: Demonstration, Discussion Response to Teaching: Verbalize Understanding, Return Demonstration, Reinforcement Needed OT Short Term Goals Short Term Goals Time Frame: Oct 09, 2020 Oral hygiene: 5 Toileting hygiene: 3 Upper body dressin Lower body dressin OT Tuberculosis Specialist Goals Tuberculosis Specialist Goals Time Frame: Oct 20, 2020 Eating (QC): 6 Oral Hygiene (QC): 6 Toileting Hygiene (QC): 5 Shower/Bathe Self (QC): 5 Upper Body Dressing (QC): 6 Lower Body Dressing (QC): 6 On/Off Footwear (QC): 6 Additional Goals: 1-Demonstrate ADL Tasks, 2-Verbalize Understanding, 3- ImproveStrength/Rcistin 1=Demonstrate adherence to instructed precautions during ADL tasks. 2=Patient will verbalize/demonstrate understanding of assistive devices/mo difications for ADL. 3=Patient will improve strength/tolerance for activity to enable patient to perform ADL's. OT Education/Plan Problem List/Assessment Assessment: Decreased Activ Tolerance, Dependent Transfers, Impaired Bed Mobility, Impaired Funct Balance, Impaired I ADL's, Impaired Self-Care Skills Due to a COVID-19 viral infection, patient has deficits that warrant inpatient Acute Rehab. The patient will clearly benefit from intensive PT and OT; however, due to the patient's observed endurance and therapy considerations, he may not be able to tolerate the full 3 hours of scheduled therapy. Therefore, he will be scheduled for as much therapy as he can tolerate with intentional rest/recovery breaks, shortened sessions, including providing therapy across 6 to 7 days. As the patient tolerates, the intensity, frequency and duration of his therapy program will be increased. Discharge Recommendations Plan/Recommendations: Continue POC Therapy Discharge Recommendati: Home & Family, Post Acute OT Equpiment Recommendations-D/C: Hip Kit Treatment Plan/Plan of Care Treatment,Training & Education: Yes Patient would benefit from OT for education, treatment and training to promote independence in ADL's, mobility, safety and/or upper extremity function for ADL's. Plan of Care: ADL Retraining, Functional Mobility, Group Exercise/Act as Ind (to increase activity tolerance, functional mobility, ADLs, strength, socialization), UE Funct Exercise/Act, UE Neuromus Re-Ed/Coord, W/C Management Training, OTHER (energy conservation education) Treatment Duration: Oct 20, 2020 Frequency: Modified Program (IRF) (Covid waiver) Estimated Hrs Per Day: 1 hour per day Agreement: Yes Rehab Potential: Fair Time/GCodes Start Time: 08:15 Stop Time: 09:15 Total Time Billed (hr/min): 60 Billed Treatment Time 1, ADL x 4 BRENDAN PENALOZA OT Oct 03, 2020 13:53
--- NOTE | 2020-10-03 14:37 | Physical Therapy Daily Note ---
PT Daily Note-Current Subjective "I can do all this at home , its just my breathing". Pt. declines getting up to edge of bed to stand or trial TRFs or attempt walking. Agrees to bed ex Pain Location: No Pain Reported Transfers SCALE: Activities may be completed with or without assistive devices. 1-Pamcbntgwq-gyeimrx completes the activity by him/herself with no assistance from a helper. 5-Set-up or Clean-up Assistance-helper sets up or cleans up; patient completes activity. [place] assists only prior to or following the activity. 4-Supervision or Touching Assistance-helper provides verbal cues and/or touching/steadying and/or contact guard assistance as patient completes activity. Assistance may be provided throughout the activity or intermittently. 3-Partial/Moderate Assistance-helper does LESS THAN HALF the effort. [place] lifts, holds or supports trunk or limbs, but provides less than half the effort. 2-Substantial/Maximal Assistance-helper does MORE THAN HALF the effort. [place] lifts or holds trunk or limbs and provides more than half the effort. 8-Rxkyauudb-gsqdmy does ALL the effort. Patient does none of the effort to complete the activity. Or, the assistance of 2 or more helpers is required for the patient to complete the activity. If activity was not attempted, code reason: 7-Patient Refused. 9-Not Applicable-not attempted and the patient did not perform the activity before the current illness, exacerbation or injury. 10-Not Attempted due to Environmental Limitations-(lack of equipment, weather restraints, etc.). 88-Not Attempted due to Medical Conditions or Safety Concerns. pt. rolls left and right and pushes self up in a flat bed indep Exercises Supine Ex: Bridging, Quad Set, Rolling, Glut sets, Heel Slides, Short Arc Quads, Scooting, Straight leg raise, Hip abd/add Supine Reps: 15 Treatments sats steady >90% on 7L O2 throughout Rx Assessment Current Status: Good Progress non compliant for TRFs and out of bed activities. Pt. seems unrealistic stating he will get up once his lungs and breathing are better. This INTERNET CONSULTANT attempted to educate pt. that tolerance of activity with O2 sats >90% would be the bench dion for safe DC to home. PT Short Term Goals Short Term Goals Time Frame: Oct 09, 2020 Roll Left & Right: 6 Sit to lyin Lying to sitting on side of be: 5 Sit to stand: 4 Chair/ohx-cm-cipfz transfer: 4 Walk 10 feet: 4 Walk 50 feet with two turns: 4 PT Snf Goals Snf Goals PT Field Tax Auditor Goals Time Frame: Oct 23, 2020 Roll Left & Right (QC): 6 Sit to Lying (QC): 6 Lying-Sitting on Side/Bed(QC): 6 Sit to Stand (QC): 5 Chair/Gfd-on-Ozyue Xfer(QC): 5 Toilet Transfer (QC): 5 Car Transfer (QC): 4 Does the Patient Walk: Yes Walk 10 feet (QC): 5 Walk 50ft with 2 Turns (QC): 5 Walk 150 ft (QC): 5 Walking 10ft on Uneven Surface: 4 1 Step (curb) (QC): 4 4 Steps (QC): 4 12 Steps (QC): 88 Picking up an Object (QC): 88 Wheel 50 feet with 2 turns (QC: 6 Wheel 150 feet: 6 PT Plan Treatment/Plan Treatment Plan: Continue Plan of Care Treatment Plan: Bed Mobility, Education, Functional Activity Cristin, Functional Strength, Group Therapy, Gait, Safety, Therapeutic Exercise, Transfers Treatment Duration: Oct 23, 2020 Frequency: Modified Program (IRF) Estimated Hrs Per Day: 1.5 hours per day Patient and/or Family Agrees t: Yes Time/GCodes Time In: 1415 Time Out: 1435 Total Billed Treatment Time: 20 Total Billed Treatment 1,EX20m RADHA REYES INTERNET CONSULTANT Oct 03, 2020 14:37
[2020-10-03 17:48] VITALS: BP 133/68
[2020-10-03] MEDS: RT-ALBUTEROL INHALER HFA (VENTOLIN HFA) 18 GM IH PRN (20:15)
[2020-10-03] MEDS: ACETAMINOPHEN 500 MG TAB (TYLENOL) PO SCH (20:49)
[2020-10-03] MEDS: LOSARTAN 100 MG (COZAAR) TABLET PO SCH (20:49)
[2020-10-03] MEDS: TAMSULOSIN 0.4 MG (FLOMAX) CAP PO SCH (20:50)
[2020-10-03] MEDS ORDERED: RT-ALBUTEROL INHALER HFA (VENTOLIN HFA) 18 GM IH PRN (21:15)
[2020-10-04] VITALS (10 sets, daily range): BP systolic 89–146; BP diastolic 44–64
[2020-10-04] MEDS: FUROSEMIDE 40 MG/4 ML INJ (LASIX) IVP SCH (07:25)
[2020-10-04] MEDS: VITAMIN D3 25 MCG (1,000 UNITS) TABLET PO SCH (08:12)
[2020-10-04] MEDS: ASCORBIC ACID (VIT C) 500 MG TABLET PO SCH (08:12)
[2020-10-04] MEDS: HYDROXYCHLOROQUINE 200 MG (PLAQUENIL) TAB PO SCH ×2 (08:12→21:36)
[2020-10-04] MEDS: CEFDINIR 300 MG (OMNICEF) CAP PO SCH ×2 (08:12→21:36)
[2020-10-04] MEDS: ASPIRIN E.C. 81 MG (ECOTRIN) TAB PO SCH ×2 (08:12→21:36)
[2020-10-04] MEDS: ENOXAPARIN 300 MG/3 ML (LOVENOX) MULTI-DOSE VIAL SQ SCH (08:14)
[2020-10-04] MEDS: methylPREDNISolone 40 MG/ML (Solu-MEDROL) VIAL IV SCH ×2 (08:18→21:34)
--- NOTE | 2020-10-04 08:21 | Diagnostic Imaging Report ---
INDICATION: Post COVID, hypotensive. TECHNIQUE: Single view chest 8:09 AM. CORRELATION STUDY: 10/02/2020 FINDINGS: Heart size remains enlarged. Vasculature slightly prominent as well. Bibasilar patchy opacities at the particularly mid and lower lung branch as well as right upper lobe persist. Overall are relatively stable. May be trace pleural effusions. IMPRESSION: 1. Multifocal pulmonary opacities particularly at the lung bases and to a lesser degree right upper lobe persisting overall generally stable. Cardiac enlargement unchanged with continued mild vascular congestion. Dictated by: Dictated on workstation # [id number]
[2020-10-04] MEDS: DOCUSATE SODIUM 100 MG (COLACE) CAP PO SCH ×2 (08:23→21:35)
[2020-10-04] MEDS: polyethylene glycoL POWDER 17 GM (MIRALAX) PACK PO SCH ×2 (08:24→21:35)
[2020-10-04] MEDS: SENNA W/DOCUSATE (SENOKOT S) TABLET PO SCH ×3 (08:24→21:35)
[2020-10-04] MEDS: meTOproloL SUCCINATE 50 MG (TOPROL XL) TAB PO SCH (09:36)
--- NOTE | 2020-10-04 11:12 | Occupational Ther Daily Note ---
OT Current Status-Daily Note Subjective No pain reported. Mental Status/Objective Patient Orientation: Person, Place, Time, Situation Attachments: Oxygen ADL-Treatment Therapy Code Descriptions/Definitions Functional [place] Measure: 0=Not Assessed/NA 4=Minimal Assistance 1=Total Assistance 5=Supervision or Setup 2=Maximal Assistance 6=Modified [place] 3=Moderate Assistance 7=Complete IndependenceSCALE: Activities may be completed with or without assistive devices. 6-Kelvibxnjq-nnharsl completes the activity by him/herself with no assistance from a helper. 5-Set-up or Clean-up Assistance-helper sets up or cleans up; patient completes activity. [place] assists only prior to or following the activity. 4-Supervision or Touching Assistance-helper provides verbal cues and/or touching/steadying and/or contact guard assistance as patient completes activity. Assistance may be provided throughout the activity or intermittently. 3-Partial/Moderate Assistance-helper does LESS THAN HALF the effort. [place] lifts, holds or supports trunk or limbs, but provides less than half the effort. 2-Substantial/Maximal Assistance-helper does MORE THAN HALF the effort. [place] lifts or holds trunk or limbs and provides more than half the effort. 7-Rsrqebkcd-ryuyny does ALL the effort. Patient does none of the effort to complete the activity. Or, the assistance of 2 or more helpers is required for the patient to complete the activity. If activity was not attempted, code reason: 7-Patient Refused. 9-Not Applicable-not attempted and the patient did not perform the activity before the current illness, exacerbation or injury. 10-Not Attempted due to Environmental Limitations-(lack of equipment, weather restraints, etc.). 88-Not Attempted due to Medical Conditions or Safety Concerns. Other Treatment Nursing talks with therapy before entering room. Pt. has been dealing with low blood pressure this a.m. Nursing requests for therapy to assess pt. and to do more bed like type activities to best of pt's ability. Pt. on throughout. Blood pressure monitored throughout treatment. OT/PT completed co- treatment due to blood pressure issues, fatigue, and oxygen saturations with movement. Blood pressure taken in supine position before treatment and is 106/57. HOB slowly raised and BP taken several more times. It went to 102/56, and then 115/59. OT focused on UE exercises and breathing exercises while PT focused on mobility. Pt. transferred supine-sit with min assist. BP taken again and is 105/60. Pt. stands with min assist at walker. BP is 109/60. He is unable to stand very long and requests immediately to sit back down. Pt. requires multiple rest breaks. Pt. lays back down with max assist. Alternated between UE/LE exercises, with increased time to recover between rest breaks. Oxygen saturations dropped to 89% and recovered to 92% with increased time. Pt. in bed resting after treatment. All needs met. Education OT Patient Education: Correct positioning, Exercise program, Modified ADL techniques, Progress toward Goal/Update tx plan, Purpose of tx/functional activities, Reviewed precautions, Rehab process, Transfer techniques Teaching Recipient: Patient Teaching Methods: Demonstration, Discussion Response to Teaching: Verbalize Understanding, Return Demonstration OT Short Term Goals Short Term Goals Time Frame: Oct 09, 2020 Oral hygiene: 5 Toileting hygiene: 3 Upper body dressin Lower body dressin OT Snf Goals Architecture Technician Goals Time Frame: Oct 20, 2020 Eating (QC): 6 Oral Hygiene (QC): 6 Toileting Hygiene (QC): 5 Shower/Bathe Self (QC): 5 Upper Body Dressing (QC): 6 Lower Body Dressing (QC): 6 On/Off Footwear (QC): 6 Additional Goals: 1-Demonstrate ADL Tasks, 2-Verbalize Understanding, 3- ImproveStrength/Cristin 1=Demonstrate adherence to instructed precautions during ADL tasks. 2=Patient will verbalize/demonstrate understanding of assistive devices/modifications for ADL. 3=Patient will improve strength/tolerance for activity to enable patient to perform ADL's. OT Education/Plan Problem List/Assessment Assessment: Decreased Activ Tolerance, Dependent Transfers, Impaired Bed Mobility, Impaired I ADL's, Impaired Self-Care Skills Due to a COVID-19 viral infection, patient has deficits that warrant inpatient Acute Rehab. The patient will clearly benefit from intensive PT and OT; however, due to the patient's observed endurance and therapy considerations, he may not be able to tolerate the full 3 hours of scheduled therapy. Therefore, he will be scheduled for as much therapy as he can tolerate with intentional rest/recovery breaks, shortened sessions, including providing therapy across 6 to 7 days. As the patient tolerates, the intensity, frequency and duration of his therapy prog juliet will be increased. Discharge Recommendations Plan/Recommendations: Continue POC Therapy Discharge Recommendati: Home & Family, Post Acute OT Treatment Plan/Plan of Care Treatment,Training & Education: Yes Patient would benefit from OT for education, treatment and training to promote independence in ADL's, mobility, safety and/or upper extremity function for ADL's. Plan of Care: ADL Retraining, Functional Mobility, Group Exercise/Act as Ind (to increase activity tolerance, functional mobility, ADLs, strength, socializat ion), UE Funct Exercise/Act, UE Neuromus Re-Ed/Coord, W/C Management Training, OTHER (energy conservation education) Treatment Duration: Oct 20, 2020 Frequency: Modified Program (IRF) (Covid waiver) Estimated Hrs Per Day: 1 hour per day Agreement: Yes Rehab Potential: Fair Time/GCodes Start Time: 10:00 Stop Time: 11:00 Total Time Billed (hr/min): 60 Billed Treatment Time 1, FA x 4 BRENDAN PENALOZA OT Oct 04, 2020 11:12
--- NOTE | 2020-10-04 11:32 | Physical Therapy Daily Note ---
PT Daily Note-Current Subjective Patient in bed pre tx, agrees to PT, has no complaints of pain at rest. Will be co-treating with OT due to poor patient mobility, strength, endurance, the need to coordinate UE and LE during activity, safety and reduce risk of falls, low blood pressure. Appearance Patient in bed post tx with nurse call, phone, tray, all needs met. Mental Status Patient Orientation: Normal For Age Attachments: Oxygen Transfers SCALE: Activities may be completed with or without assistive devices. 9-Qxvodtryvq-mnrtiac completes the activity by him/herself with no assistance from a helper. 5-Set-up or Clean-up Assistance-helper sets up or cleans up; patient completes activity. [place] assists only prior to or following the activity. 4-Supervision or Touching Assistance-helper provides verbal cues and/or touching/steadying and/or contact guard assistance as patient completes activity. Assistance may be provided throughout the activity or intermittently. 3-Partial/Moderate Assistance-helper does LESS THAN HALF the effort. [place] lifts, holds or supports trunk or limbs, but provides less than half the effort. 2-Substantial/Maximal Assistance-helper does MORE THAN HALF the effort. [place] lifts or holds trunk or limbs and provides more than half the effort. 0-Hgqgdfjkn-zbjwgn does ALL the effort. Patient does none of the effort to complete the activity. Or, the assistance of 2 or more helpers is required for the patient to complete the activity. If activity was not attempted, code reason: 7-Patient Refused. 9-Not Applicable-not attempted and the patient did not perform the activity before the current illness, exacerbation or injury. 10-Not Attempted due to Environmental Limitations-(lack of equipment, weather restraints, etc.). 88-Not Attempted due to Medical Conditions or Safety Concerns. Roll Left & Right (QC): 4 Sit to Lying (QC): 3 Lying to Sitting/Side of Bed(Q: 4 Sit to Stand (QC): 3 Patient's BP was taken at laying down and several times with elevating the upper portion of the bed and then while sitting (106/57, 102/56, 115/59, and then sitting 105/60), HR varied from 73bpm to 81 bpm. He stood for a minute, not long enough to get a blood pressure, but got dizzy and had to sit back down. Patient sat on the side of the bed for about 20 min, performed several exercises but then had eyes rolling into the back of his head and had unsteady sitting balance. He was layed back down, rested, and then performed a few more LE exercises. Exercises Supine Ex: Quad Set, Glut sets Supine Reps: 20 Seated Therapy Exercises: Long arc quads, Hip flexion Seated Reps: 20 Treatments PT performed bed mobility, standing, sitting balance, LE exercise, OT performed UE exercise, safety and positioning Assessment Current Status: Poor Progress Patient cannot tolerate much activity at this time. He gets SOB with minimal activity, O2 goes into the 80's and needs rest break with purse lip breathing to come back up to 90's. He also has trouble tolerating much activity due to dizziness and low blood pressure. PT Short Term Goals Short Term Goals Time Frame: Oct 09, 2020 Roll Left & Right: 6 Sit to lyin Lying to sitting on side of be: 5 Sit to stand: 4 Chair/bgz-yb-hrngn transfer: 4 Walk 10 feet: 4 Walk 50 feet with two turns: 4 PT Residential Goals Cow Tender Goals PT Residential Goals Time Frame: Oct 23, 2020 Roll Left & Right (QC): 6 Sit to Lying (QC): 6 Lying-Sitting on Side/Bed(QC): 6 Sit to Stand (QC): 5 Chair/Uzl-rm-Xktlk Xfer(QC): 5 Toilet Transfer (QC): 5 Car Transfer (QC): 4 Does the Patient Walk: Yes Walk 10 feet (QC): 5 Walk 50ft with 2 Turns (QC): 5 Walk 150 ft (QC): 5 Walking 10ft on Uneven Surface: 4 1 Step (curb) (QC): 4 4 Steps (QC): 4 12 Steps (QC): 88 Picking up an Object (QC): 88 Wheel 50 feet with 2 turns (QC: 6 Wheel 150 feet: 6 PT Plan Problem List Problem List: Activity Tolerance, Functional Strength, Safety, Balance, Gait, Transfer, Bed Mobility, ROM Treatment/Plan Treatment Plan: Continue Plan of Care Treatment Plan: Bed Mobility, Education, Functional Activity Cristin, Functional Strength, Group Therapy, Gait, Safety, Therapeutic Exercise, Transfers Treatment Duration: Oct 23, 2020 Frequency: Modified Program (IRF) Estimated Hrs Per Day: 1.5 hours per day Patient and/or Family Agrees t: Yes Safety Risks/Education Patient Education: Transfer Techniques, Correct Positioning, Safety Issues Teaching Recipient: Patient Teaching Methods: Demonstration, Discussion Response to Teaching: Reinforcement Needed Time/GCodes Time In: 1000 Time Out: 1100 Total Billed Treatment Time: 60 Total Billed Treatment 1 visit EX 20' FA 40' co-treated with OT for 60' TITO SCHMITT PT Oct 04, 2020 11:32
[2020-10-04] MEDS: ADVAIR HFA 115/21 MCG INHALER 8 GM IH SCH ×2 (12:02→20:13)
[2020-10-04] MEDS: RT-ALBUTEROL INHALER HFA (VENTOLIN HFA) 18 GM IH SCH ×2 (12:06→20:11)
--- NOTE | 2020-10-04 13:17 | PM&R Progress Note ---
Subjective HPI/CC On Admission Date Seen by Provider: Oct 04, 2020 Time Seen by Provider: 13:00 Subjective/Events-last exam Had major events today Hypotension when he was on commode CXR just residual COVID but diff to ascertain Sepsis w/u completed along with ECHO and Dr Mendoza consultation PCT very slightly elevated but in case bacterial PNA superimposed with the COVID will cover with abx after Cx Patient frightened Has very dry throat and mouth Patient very volume contracted from Lasix so stopping the Lasix and giving IVF Elevated lactic acid likely from volume depletion Extensive w/u today Monitor for decompensation may need ICU Review of Systems General: Fatigue, Malaise Pulmonary: Dyspnea Focused Exam Lactate Level 10/04/20 23:55: Lactic Acid Level 2.49*H 10/05/20 02:25: Lactic Acid Level 2.40*H 10/05/20 04:27: Lactic Acid Level Laboratory Tests Test 10/05/20 02:25 10/05/20 04:27 Lactic Acid Level 2.40 MMOL/L (0.50-2.00) *H Objective Exam Vital Signs Vital Signs Date Time Temp Pulse Resp B/P (MAP) Pulse Ox O2 Delivery O2 Flow Rate FiO2 10/04/20 22:40 74 24 94 45.00 10/04/20 20:13 High Flow N/C 10/04/20 17:50 35.8 111/55 (73) Capillary Refill : Less Than 3 Seconds General Appearance: No Apparent Distress, WD/WN, Chronically ill, Obese HEENT: PERRL/EOMI, Normal ENT Inspection, Pharynx Normal Neck: Full Range of Motion, Normal Inspection, Non Tender, Supple, Carotid Bruit Respiratory: Chest Non Tender, Lungs Clear, No Accessory Muscle Use, No Respiratory Distress, Decreased Breath Sounds Cardiovascular: Regular Rate, Rhythm, No Gallop, No JVD, No Murmur, Normal Peripheral Pulses Gastrointestinal: Normal Bowel Sounds, No Organomegaly, No Pulsatile Mass, Non Tender, Soft Back: Normal Inspection, No CVA Tenderness, No Vertebral Tenderness Extremity: Normal Capillary Refill, Normal Inspection, Normal Range of Motion, Non Tender, No Calf Tenderness, Pedal Edema Neurologic/Psychiatric: Alert, Oriented x3, No Motor/Sensory Deficits, Normal Mood/Affect, Abnormal Gait, Motor Weakness (all extremities 4/5), Other (foot drop bilateral) Skin: Normal Color, Warm/Dry Lymphatic: No Adenopathy Results/Procedures Lab Laboratory Tests 10/04/20 13:35 10/04/20 23:55 Patient resulted labs reviewed. FIM Transfers Therapy Code Descriptions/Definitions Functional [place] Measure: 0=Not Assessed/NA 4=Minimal Assistance 1=Total Assistance 5=Supervision or Setup 2=Maximal Assistance 6=Modified [place] 3=Moderate Assistance 7=Complete IndependenceSCALE: Activities may be completed with or without assistive devices. 1-Intpkpngbo-mugrqwv completes the activity by him/herself with no assistance from a helper. 5-Set-up or Clean-up Assistance-helper sets up or cleans up; patient completes activity. [place] assists only prior to or following the activity. 4-Supervision or Touching Assistance-helper provides verbal cues and/or touching/steadying and/or contact guard assistance as patient completes activity. Assistance may be provided throughout the activity or intermittently. 3-Partial/Moderate Assistance-helper does LESS THAN HALF the effort. [place] lifts, holds or supports trunk or limbs, but provides less than half the effort. 2-Substantial/Maximal Assistance-helper does MORE THAN HALF the effort. [place] lifts or holds trunk or limbs and provides more than half the effort. 3-Cdvbqixcd-onxdcx does ALL the effort. Patient does none of the effort to complete the activity. Or, the assistance of 2 or more helpers is required for the patient to complete the activity. If activity was not attempted, code reason: 7-Patient Refused. 9-Not Applicable-not attempted and the patient did not perform the activity before the current illness, exacerbation or injury. 10-Not Attempted due to Environmental Limitations-(lack of equipment, weather restraints, etc.). 88-Not Attempted due to Medical Conditions or Safety Concerns. Roll Left to Right (QC): 4 Sit to Lying (QC): 3 Sit to Stand (QC): 3 Chair/Uhk-gh-Qqris Xfer(QC): 4 Car Transfer (QC): 3 Gait Training Does the Patient Walk?: Yes Walk 10 feet (QC): 4 Walk 50 ft with 2 Turns(QC): 88 Walk 150 ft (QC): 88 Walking 10ft/uneven surface-QC: 88 Gait Assistive Device: FWW Wheelchair Training Does the Pt Use a Wheelchair?: Yes Distance: 50' Wheel 50 ft with 2 turns (QC): 4 Wheel 150 ft (QC): 88 Type of Wheelchair: Manual Stair Training 1 Step (curb) (QC): 88 4 Steps (QC): 88 12 Steps (QC): 88 Balance Picking up an Object (QC): 88 ADL-Treatment Eating (QC): 6 Oral Hygiene (QC): 88 Shower/Bathe Self (QC): 3 (Pt. did agree to wash UE, chest, face. Declines washing LE. Requires dependent assistance to wash matilde area after BM.) Upper Body Dressing (QC): 5 (Set up to doff/don shirt.) Lower Body Dressing (QC): 2 (Pt. already had pants on that were pulled down so that he could urinate easier. Pt. also already had shoes/AFO on that he declined taking off. Nursing/PT assisted him with LE dressing and footwear.) On/Off Footwear (QC): 2 Toileting Hygiene (QC): 2 (Pt. able to have BM in BSC, and is able to urinate into basin. OT empties this for him and cleanses him in stance.) Toilet Transfer (QC): 3 (Min assist to transfer to and from BSC. Pt. insists on putting commode directly in front of him while he is sitting on side of bed. He bends over and stands by holding arms of commode. In stance, he moves commode backward while taking steps to turn around. Pt. declines to let OT place BSC perpendicular to bed, which would be safer method.) Assessment/Plan Assessment and Plan Assess & Plan/Chief Complaint Assessment: Critical illness myopathy Obesity SATISH Right sided pleural effusion SLE Urinary incontinence HTN Foot drop Plan: Monitor BP Monitor O2 PT OT protocol Wean O2 10/03/20: Monitor PVR Penile edema would not allow cysto to be performed Monitor O2 10/04/20: Monitor closely ABx empiric Cardiology ECHo Sepsis w/u IVF Monitor closely (1) COVID-19 (2) Pleural effusion on right (3) SLE (systemic lupus erythematosus related syndrome) (4) Obesity (5) Hypertension (6) Hypoxia (7) Respiratory insufficiency (8) Hypercapnia ISI HOPSON DO Oct 04, 2020 13:17
[2020-10-04 13:37] LABS: ABG BASE EXCESS -2.1 MMOL/L (-2.5-2.5); ABG OXYGEN SATURATION 94 % (94-100); ABG PCO2 31 MMHG (35-45); ABG PH 7.45 (7.37-7.43); ABG PO2 65 MMHG (79-93); ABG TCO2 22.6 MMOL/L (21.0-31.0); ALLENS TEST YES-POS; INSPIRED O2 7L; PATIENT TEMP 35.7; VENTILATOR NO
[2020-10-04 13:51] LABS: BASOPHILS % (AUTO) 0 % (0-10); EOSINOPHILS % (AUTO) 0 % (0-10); HEMATOCRIT 31 % (40-54); HEMOGLOBIN 9.7 g/dL (13.3-17.7); LYMPHOCYTES # (AUTO) 0.4 10^3/uL (1.0-4.0); LYMPHOCYTES % (AUTO) 3 % (12-44); MEAN CORPUSCULAR HGB CONC 32 g/dL (32-36); MEAN CORPUSCULAR VOLUME 87 fL (80-99); MEAN PLATELET VOLUME 11.4 fL (9.0-12.2); MONOCYTES # (AUTO) 0.6 10^3/uL (0.0-1.0); MONOCYTES % (AUTO) 5 % (0-12); NEUTROPHILS # (AUTO) 11.1 10^3/uL (1.8-7.8); NEUTROPHILS % (AUTO) 88 % (42-75); PLATELET COUNT 251 10^3/uL (130-400); WHITE BLOOD COUNT 12.6 10^3/uL (4.3-11.0)
[2020-10-04 13:55] LABS: MEAN CORPUSCULAR HEMOGLOBIN 27 pg (25-34)
[2020-10-04 14:09] LABS: BAND NEUTROPHILS 0 %; BASOPHILS % (MANUAL) 0 %; EOSINOPHILS % (MANUAL) 0 %; LYMPHOCYTES % (MANUAL) 2 %; METAMYELOCYTES % 3 %; MONOCYTES % (MANUAL) 3 %; NEUTROPHILS % (MANUAL) 92 %; RBC MORPH NORMAL
[2020-10-04 14:19] LABS: ALBUMIN 2.5 GM/DL (3.2-4.5); BILIRUBIN,TOTAL 0.7 MG/DL (0.1-1.0); CALCIUM 7.9 MG/DL (8.5-10.1); CREATININE SERUM 1.42 MG/DL (0.60-1.30); ERYTHROCYTE SEDIMENTATION RATE 38 MM/HR (0-30); POTASSIUM 5.3 MMOL/L (3.6-5.0); TOTAL PROTEIN 5.2 GM/DL (6.4-8.2)
--- NOTE | 2020-10-04 14:25 | Consultation-Cardiology ---
HPI-Cardiology Cardiology Consultation: Date of Consultation 10/04/20 Time Seen by a Provider: 14:15 Date of Admission 09-27-2020 Attending Physician Stefany Hopson DO Admitting Physician Maite,Local Physician Consulting Physician KALIE BARTH HPI: Chief Complaint: Hypotension Mr Calhoun is a 69 yr old male who we have been asked to see on in pt rehab d/t hypotension. He reports this morning he got up to the BSC, felt weak and diaphoretic. Spoke with nursing staff they report his BP this morning was 89 systolic and improved after they laid him down in bed to the low 100's. They report they held his antihypertensives this morning including his Lasix. They again tried to get him up to the BSC and he again became weak and diaphoretic. He currently is in bed, lethargic. He reports he is having localized mid- sternal chest pressure, which he describes as a squeezing sensation that just started a few minutes prior to my arrival. He reports SOB, which has been present since he was diagnosed with COVID. He has chronic bilat LE swelling which has been present for several years. He currently has wraps in place. He had to be awakened several times during assessment. Review of Systems-Cardiology Review of Systems Constitutional: No chills, No fever; lightheadedness, malaise, tiredness Eyes: No vision change Ears/Nose/Throat: No epistaxis, No recent hearing loss Respiratory: As described under HPI Cardiovascular: As described under HPI Gastrointestinal: No constipation, No diarrhea, No nausea, No vomiting Genitourinary: No urine frequency changes, No urine coloration changes Musculoskeletal: no symptoms reported Skin: other (chronic dry, discoloration to his feet bilat); No rash on exposed areas Psychiatric/Neurological: No anxiety, No depression, No seizure, No focal weakness, No syncope Hematologic: No bleeding abnormalities [id number] Hx Patient Social History Marrital Status: Employed/Student: retired Alcohol Use: Denies Use Recreational Drug Use: No Smoking Status: Former Smoker Recent Foreign Travel: No Recent Infectious Disease Expo: No Physical Abuse Screen: No Sexual Abuse: No Past Medical History PMH As described under Assessment. Family Medical History Family Medical History: Family h/o mother having CAD. Allergies and Home Medications Allergies Coded Allergies: No Allergy Information Available (Unverified , 09/27/20) Home Medications Acetaminophen 500 Mg Tablet, 1,000 MG PO HS, (Reported) Albuterol Sulfate 1 Puff Puff, 2 PUFF IH Q4H PRN for SHORTNESS OF BREATH, (R eported) Ascorbate Calcium 500 Mg Tablet, 500 MG PO DAILY, (Reported) Aspirin 81 Mg Tablet.dr, 81 MG PO BID, (Reported) Aspirin/Acetaminophen/Caffeine 1 Each Tablet, 2 EACH PO DAILY, (Reported) Cholecalciferol (Vitamin D3) 25 Mcg Capsule, 25 MCG PO DAILY, (Reported) Fluticasone/Salmeterol 1 Each Blst.w.dev, 1 PUFF INH BID, (Reported) Furosemide 20 Mg Tablet, 20 MG PO 0700,1200, (Reported) Hydroxychloroquine Sulfate 200 Mg Tablet, 200 MG PO BID, (Reported) Losartan Potassium 100 Mg Tablet, 100 MG PO HS, (Reported) Metoprolol Succinate 50 Mg Tab.er.24h, 50 MG PO BID, (Reported) Tamsulosin HCl 0.4 Mg Cap, 0.4 MG PO HS, (Reported) Physical Exam-Cardiology Physical Exam Vital Signs/I&O 10/04/20 10/04/20 10/04/20 10/04/20 06:00 09:30 11:29 13:48 Temp 36.2 Pulse 73 74 70 Resp 19 19 B/P (MAP) 131/64 (86) 101/56 (71) Pulse Ox 94 94 92 O2 Delivery High Flow N/C High Flow N/C High Flow N/C O2 Flow Rate 7.00 7.00 7.00 10/04/20 00:00 Intake Total 1640 ml Output Total 300 ml Balance 1340 ml Capillary Refill : Less Than 3 Seconds Constitutional: AAO x 3 (lethargic), well-developed, well-nourished HEENT: PERRL, hearing is well preserved, oral hygience is good Neck: No carotid bruit; carotid pulses are 2 + bilaterally Respiratory: No accessory muscle use, No respiratory distress; chest expansion is symmetric, chest is bilaterally symmetric, other (fair air entry; diminished) Cardiovascular: regular rate-rhythm; No JVD; S1 and S2 Gastrointestinal: No tender; soft, round, audible bowel sounds Extremities: other (pitting bilat lower extremity swelling to his hips, including scrotal) Neurologic/Psychiatric: grossly intact (moves all extremities) Skin: No rash on exposed areas, No ulcerations on exposed areas; other (dry, flaky discoloration to his toes bilat; bruising to his abdomen) Data Review Labs Laboratory Tests 10/04/20 07:16: Glucometer 162H 10/04/20 13:30: Blood Gas Puncture Site R RAD, Blood Gas Patient Temperature 35.7, Arterial Blood pH 7.45H, Arterial Blood Partial Pressure CO2 31L, Arterial Blood Partial Pressure O2 65L, Arterial Blood HCO3 22L, Arterial Blood Total CO2 22.6, Arterial Blood Oxygen Saturation 94, Arterial Blood Base Excess -2.1, Kenji Test YES-POS, Blood Gas Ventilator Setting NO, Blood Gas Inspired Oxygen 7L 10/04/20 13:35: White Blood Count 12.6H, Red Blood Count 3.53L, Hemoglobin 9.7#L, Hematocrit 31L , Mean Corpuscular Volume 87, Mean Corpuscular Hemoglobin 27, Mean Corpuscular Hemoglobin Concent 32, Red Cell Distribution Width 14.8H, Platelet Count 251, Mean Platelet Volume 11.4, Immature Granulocyte % (Auto) 4, Neutrophils (%) (Auto) 88H, Lymphocytes (%) (Auto) 3L, Monocytes (%) (Auto) 5, Eosinophils (%) (Auto) 0, Basophils (%) (Auto) 0, Neutrophils # (Auto) 11.1H, Lymphocytes # (Auto) 0.4L, Monocytes # (Auto) 0.6, Eosinophils # (Auto) 0.0, Basophils # (Auto) 0.0, Immature Granulocyte # (Auto) 0.6H, Neutrophils % (Manual) 92, Lymphocytes % (Manual) 2, Monocytes % (Manual) 3, Eosinophils % (Manual) 0, Basophils % (Manual) 0, Metamyelocytes % 3, Band Neutrophils 0, Blood Morphology Comment NORMAL, D-Dimer 0.83H Laboratory Tests 10/03/20 05:16 10/04/20 13:35 Radiology NAME: KEYONA CALHOUN [facility] REC#: [id number] PT STATUS: ADM IN : 1950 PHYSICIAN: STEFANY HOPSON DO ADMIT DATE: 10/02/20/IRF Draft Date of Exam:10/04/20 CHEST 1 VIEW, AP/PA ONLY INDICATION: Post COVID, hypotensive. TECHNIQUE: Single view chest 8:09 AM. CORRELATION STUDY: 10/02/2020 FINDINGS: Heart size remains enlarged. Vasculature slightly prominent as well. Bibasilar patchy opacities at the particularly mid and lower lung branch as well as right upper lobe persist. Overall are relatively stable. May be trace pleural effusions. IMPRESSION: 1. Multifocal pulmonary opacities particularly at the lung bases and to a lesser degree right upper lobe persisting overall generally stable. Cardiac enlargement unchanged with continued mild vascular congestion. Dictated on workstation # [id number] Dict: 10/04/20811 Trans: 10/04/20819 [facility] [id number] Interpreted by: CRISTOBAL LOVE DO Electronically signed by: A/P-Cardiology Assessment/Admission Diagnosis Hypotension likely secondary to sepsis Sepsis of undetermined etiology H/O COVID (+) Lupus Chronic bilat LE swelling Scrotal edema with urinary retention - Dr. Leonardo following Obesity Probable SATISH HTN BPH Discussion and Recomendations Hypotension likely secondary to sepsis NIKITA likely secondary to hypotension Mildly elevated troponin likely type 2 [place] secondary to hypotension/sepsis Managment of sepsis per medical services Start IVF EKG Echocardiogram Hold antihypertensives for now and re-introduce as indicated/tolerated Management of urinary retention per Dr. Leonardo Hyperkalemia likely secondary to volume depletion d/t chronic diuretics regimen Monitor lab closely Further recs will be based on his hospital course We would like to thank medical services for this consult Clinical Quality Measures DVT/VTE Risk/Contraindication: Risk Factor Score Per Nursin RFS Level Per Nursing on Admit: 4+=Very High KALIE CHURCHILL Oct 04, 2020 14:25
[2020-10-04] MEDS ORDERED: NS IV 1000 ML 1,000 ML IV SCH (14:30)
[2020-10-04] MEDS ORDERED: VANCOMYCIN INJECTION 2,000 MG in NS IV 500 ML 500 ML IV SCH (15:30)
[2020-10-04 15:39] LABS: BILIRUBIN,URINE NEGATIVE (NEGATIVE); CLARITY,URINE CLEAR; COLOR,URINE YELLOW; GLUCOSE, URINE (UA) NEGATIVE (NEGATIVE); KETONES,URINE NEGATIVE (NEGATIVE); LEUKOCYTE ESTERASE ,URINE NEGATIVE (NEGATIVE); NITRITE,URINE NEGATIVE (NEGATIVE); PROTEIN,URINE NEGATIVE (NEGATIVE)
[2020-10-04 15:47] LABS: BACTERIA,URINE NEGATIVE /HPF
[2020-10-04] MEDS ORDERED: PIPERACILLIN/TAZOBACTAM (BULK) 4.5 GM in NS (IVPB) 100 ML IV NR (16:00)
--- NOTE | 2020-10-04 18:17 | Consultation-Cardiology ---
HPI-Cardiology Cardiology Consultation: Date of Consultation 10/04/20 Time Seen by a Provider: 17:30 Date of Admission Attending Physician Stefany Elliott DO Admitting Physician No,Local Physician Consulting Physician DARRICK MITCHELL MD, MA, FACP, FACC, [facility], [facility] Physician requesting consult: Dr Elliott HPI: Chief Complaint: Reason for consultation: Orthostatic hypotension HPI Mr Calhoun is a 69 yr old male who we have been asked to see on in pt rehab d/t hypotension. He reports this morning he got up to the B[facility], felt weak and diaphoretic. Spoke with nursing staff they report his BP this morning was 89 systolic and improved after they laid him down in bed to the low 100's. They report they held his antihypertensives this morning including his Lasix. They again tried to get him up to the BSC and he again became weak and diaphoretic. He currently is in bed, lethargic. He reports he is having localized mid- sternal chest pressure, which he describes as a squeezing sensation that just started a few minutes prior to my arrival. He reports SOB, which has been present since he was diagnosed with COVID. He has chronic bilat LE swelling which has been present for several years. He currently has wraps in place. He had to be awakened several times during assessment. Review of Systems-Cardiology Review of Systems Constitutional: No chills, No fever; lightheadedness, malaise, tiredness Eyes: No vision change Ears/Nose/Throat: No epistaxis, No recent hearing loss Respiratory: As described under HPI Cardiovascular: As described under HPI Gastrointestinal: No constipation, No diarrhea, No nausea, No vomiting Genitourinary: No urine frequency changes, No urine coloration changes Musculoskeletal: no symptoms reported Skin: other (chronic dry, discoloration to his feet bilat); No rash on exposed areas Psychiatric/Neurological: No anxiety, No depression, No seizure, No focal weakness, No syncope Hematologic: No bleeding abnormalities [id number] Hx Patient Social History Marrital Status: Employed/Student: retired Alcohol Use: Denies Use Recreational Drug Use: No Smoking Status: Former Smoker Recent Foreign Travel: No Recent Infectious Disease Expo: No Physical Abuse Screen: No Sexual Abuse: No Past Medical History PMH As described under Assessment. Family Medical History Family Medical History: Family h/o mother having CAD. Allergies and Home Medications Allergies Coded Allergies: No Allergy Information Available (Unverified , 09/27/20) Home Medications Acetaminophen 500 Mg Tablet, 1,000 MG PO HS, (Reported) Albuterol Sulfate 1 Puff Puff, 2 PUFF IH Q4H PRN for SHORTNESS OF BREATH, (Repo rted) Ascorbate Calcium 500 Mg Tablet, 500 MG PO DAILY, (Reported) Aspirin 81 Mg Tablet.dr, 81 MG PO BID, (Reported) Aspirin/Acetaminophen/Caffeine 1 Each Tablet, 2 EACH PO DAILY, (Reported) Cholecalciferol (Vitamin D3) 25 Mcg Capsule, 25 MCG PO DAILY, (Reported) Fluticasone/Salmeterol 1 Each Blst.w.dev, 1 PUFF INH BID, (Reported) Furosemide 20 Mg Tablet, 20 MG PO 0700,1200, (Reported) Hydroxychloroquine Sulfate 200 Mg Tablet, 200 MG PO BID, (Reported) Losartan Potassium 100 Mg Tablet, 100 MG PO HS, (Reported) Metoprolol Succinate 50 Mg Tab.er.24h, 50 MG PO BID, (Reported) Tamsulosin HCl 0.4 Mg Cap, 0.4 MG PO HS, (Reported) Patient Home Medication List Home Medication List Reviewed: Yes Physical Exam-Cardiology Physical Exam Vital Signs/I&O 10/04/20 10/04/20 10/04/20 10/04/20 07:05 07:10 07:30 08:10 Pulse 72 73 68 71 B/P (MAP) 89/54 (66) 113/55 (74) 96/52 (67) 92/50 (64) Pulse Ox 89 92 94 95 O2 Delivery High Flow N/C High Flow N/C High Flow N/C High Flow N/C O2 Flow Rate 7.00 7.00 7.00 8.00 10/04/20 10/04/20 10/04/20 10/04/20 09:30 11:29 13:48 14:00 Pulse 74 70 74 Resp 19 B/P (MAP) 101/56 (71) 93/50 (64) Pulse Ox 94 92 94 O2 Delivery High Flow N/C High Flow N/C High Flow N/C O2 Flow Rate 7.00 7.00 7.00 10/04/20 17:50 Temp 35.8 Pulse 74 Resp 20 B/P (MAP) 111/55 (73) Pulse Ox 95 O2 Delivery High Flow N/C 10/04/20 00:00 Intake Total 1640 ml Output Total 300 ml Balance 1340 ml Capillary Refill : Less Than 3 Seconds Constitutional: AAO x 3 (lethargic), well-developed, well-nourished HEENT: PERRL, hearing is well preserved, oral hygience is good Neck: No carotid bruit; carotid pulses are 2 + bilaterally Respiratory: No accessory muscle use, No respiratory distress; chest expansion is symmetric, chest is bilaterally symmetric, other (fair air entry; diminished) Cardiovascular: regular rate-rhythm; No JVD; S1 and S2 Gastrointestinal: No tender; soft, round, audible bowel sounds Extremities: other (pitting bilat lower extremity swelling to his hips, including scrotal) Neurologic/Psychiatric: grossly intact (moves all extremities) Skin: No rash on exposed areas, No ulcerations on exposed areas; other (dry, flaky discoloration to his toes bilat; bruising to his abdomen) Data Review Labs Laboratory Tests 10/04/20 07:16: Glucometer 162H 10/04/20 13:30: Blood Gas Puncture Site R RAD, Blood Gas Patient Temperature 35.7, Arterial Blood pH 7.45H, Arterial Blood Partial Pressure CO2 31L, Arterial Blood Partial Pressure O2 65L, Arterial Blood HCO3 22L, Arterial Blood Total CO2 22.6, Arterial Blood Oxygen Saturation 94, Arterial Blood Base Excess -2.1, Kenji Test YES-POS, Blood Gas Ventilator Setting NO, Blood Gas Inspired Oxygen 7L 10/04/20 13:35: White Blood Count 12.6H, Red Blood Count 3.53L, Hemoglobin 9.7#L, Hematocrit 31L , Mean Corpuscular Volume 87, Mean Corpuscular Hemoglobin 27, Mean Corpuscular Hemoglobin Concent 32, Red Cell Distribution Width 14.8H, Platelet Count 251, Mean Platelet Volume 11.4, Immature Granulocyte % (Auto) 4, Neutrophils (%) (Auto) 88H, Lymphocytes (%) (Auto) 3L, Monocytes (%) (Auto) 5, Eosinophils (%) (Auto) 0, Basophils (%) (Auto) 0, Neutrophils # (Auto) 11.1H, Lymphocytes # (Auto) 0.4L, Monocytes # (Auto) 0.6, Eosinophils # (Auto) 0.0, Basophils # (Auto) 0.0, Immature Granulocyte # (Auto) 0.6H, Neutrophils % (Manual) 92, Lymphocytes % (Manual) 2, Monocytes % (Manual) 3, Eosinophils % (Manual) 0, Basophils % (Manual) 0, Metamyelocytes % 3, Band Neutrophils 0, Blood Morphology Comment NORMAL, Erythrocyte Sedimentation Rate 38H, D-Dimer 0.83H, Sodium Level 130L, Potassium Level 5.3H, Chloride Level 100, Carbon Dioxide Level 22, Anion Gap 8, Blood Urea Nitrogen 88H, Creatinine 1.42H, Estimat Glomerular Filtration Rate 49, BUN/Creatinine Ratio 62, Glucose Level 169H, Lactic Acid Level 2.44*H, Calcium Level 7.9L, Corrected Calcium 9.1, Total Bilirubin 0.7, Aspartate Amino Transf (AST/SGOT) 11, Alanine Aminotransferase (ALT/SGPT) 21, Alkaline Phosphatase 44, Troponin I 0.063H, B-Type Natriuretic Peptide 22.0, Total Protein 5.2L, Albumin 2.5L, Procalcitonin 0.12H 10/04/20 15:25: Urine Color YELLOW, Urine Clarity CLEAR, Urine pH 5.0, Urine Specific Camino >=1.030, Urine Protein NEGATIVE, Urine Glucose (UA) NEGATIVE, Urine Ketones NEGATIVE, Urine Nitrite NEGATIVE, Urine Bilirubin NEGATIVE, Urine Urobilinogen 0.2, Urine Leukocyte Esterase NEGATIVE, Urine RBC (Auto) 2+H, Urine RBC 10-25H, Urine WBC NONE, Urine Squamous Epithelial Cells NONE, Urine Crystals NONE, Urine Bacteria NEGATIVE, Urine Casts NONE, Urine Mucus NEGATIVE, Urine Culture Indicated NO 10/04/20 15:50: Lactic Acid Level 1.99 Laboratory Tests 10/03/20 05:16 10/04/20 13:35 A/P-Cardiology Assessment/Admission Diagnosis Hypotension likely secondary to sepsis and volume depletion NIKITA 2 likely due to dehydration due to diuretics Sepsis of undetermined etiology Echo of 10/04/20: LVEF 60-65%, mild to mod conc LVH, PASP 35-40 mmHg Mildly elevated troponin likely type 2 MD secondary to hypotension/sepsis H/O COVID (+) Lupus Chronic bilat LE swelling Chronic scrotal edema with urinary retention - Dr. Leonardo following Obesity Probable SATISH HTN BPH Discussion and Recomendations Management of sepsis per medical services Start IVF EKG Echocardiogram Hold antihypertensives for now and re-introduce as indicated/tolerated Management of urinary retention per Dr. Leonardo Hyperkalemia likely secondary to volume depletion d/t chronic diuretics regimen Monitor lab closely Further recs will be based on his hospital course We would like to thank Medical services for this consult Clinical Quality Measures DVT/VTE Risk/Contraindication: Risk Factor Score Per Nursin RFS Level Per Nursing on Admit: 4+=Very High DARRICK MITCHELL MD FACP FAC [facility] Oct 04, 2020 18:17
[2020-10-04] MEDS ORDERED: PIPERACILLIN/TAZOBACTAM (BULK) 4.5 GM in NS (IVPB) 100 ML IV SCH (20:00)
[2020-10-04] MEDS ORDERED: APIXABAN 5 MG (ELIQUIS) TABLET PO SCH (21:00)
[2020-10-04] MEDS: TAMSULOSIN 0.4 MG (FLOMAX) CAP PO SCH (21:36)
[2020-10-04] MEDS: ACETAMINOPHEN 500 MG TAB (TYLENOL) PO SCH (21:37)
[2020-10-04 23:27] LABS: ABG BASE EXCESS -3.1 MMOL/L (-2.5-2.5); ABG OXYGEN SATURATION 100 % (94-100); ABG PCO2 23 MMHG (35-45); ABG PH 7.54 (7.37-7.43); ABG PO2 144 MMHG (79-93); ABG TCO2 20.2 MMOL/L (21.0-31.0)
[2020-10-04 23:30] LABS: ALLENS TEST POSITIVE
[2020-10-04 23:31] LABS: INSPIRED O2 100; PATIENT TEMP 35.4; VENTILATOR NO
[2020-10-05 00:03] VITALS: BP 77/45
[2020-10-05 00:15] LABS: BASOPHILS % (AUTO) 0 % (0-10); EOSINOPHILS % (AUTO) 0 % (0-10); HEMATOCRIT 25 % (40-54); HEMOGLOBIN 7.9 g/dL (13.3-17.7); LYMPHOCYTES # (AUTO) 0.5 10^3/uL (1.0-4.0); LYMPHOCYTES % (AUTO) 3 % (12-44); MEAN CORPUSCULAR HEMOGLOBIN 27 pg (25-34); MEAN CORPUSCULAR HGB CONC 31 g/dL (32-36); MEAN CORPUSCULAR VOLUME 87 fL (80-99); MEAN PLATELET VOLUME 11.7 fL (9.0-12.2); MONOCYTES % (AUTO) 7 % (0-12); NEUTROPHILS # (AUTO) 12.4 10^3/uL (1.8-7.8); NEUTROPHILS % (AUTO) 85 % (42-75); PLATELET COUNT 245 10^3/uL (130-400); WHITE BLOOD COUNT 14.6 10^3/uL (4.3-11.0)
[2020-10-05 00:21] LABS: POTASSIUM 5.1 MMOL/L (3.6-5.0)
[2020-10-05 00:23] LABS: CALCIUM 7.7 MG/DL (8.5-10.1)
[2020-10-05 00:27] LABS: CREATININE SERUM 1.79 MG/DL (0.60-1.30); PHOSPHORUS 2.8 MG/DL (2.3-4.7)
[2020-10-05 00:29] LABS: MAGNESIUM 2.1 MG/DL (1.6-2.4)
--- NOTE | 2020-10-05 04:59 | Discharge Summary ---
Diagnosis/Chief Complaint Date of Admission Oct 02, 2020 at 12:00 Date of Discharge Discharge Diagnosis Massive GI Bleed Severe anemia Syncope Hypotension s/p COVID 4 weeks ago Discharge Summary Discharge Physical Examination Allergies: Coded Allergies: No Allergy Information Available (Unverified , 09/27/20) Vitals & I&Os Vital Signs Date Time Temp Pulse Resp B/P (MAP) Pulse Ox O2 Delivery O2 Flow Rate FiO2 10/04/20 23:45 35.6 77 18 100 10/04/20 22:40 45.00 10/04/20 20:13 High Flow N/C 10/04/20 17:50 111/55 (73) General Appearance: Alert, Other (distressed) Respiratory: Clear to Auscultation Cardiovascular: Regular Rate Hospital Course Was the Problem List Reviewed?: Yes Sort course after admitted for 4th floor after right sided pleural effusion was drained by CT scan guided method. Abx maintained and transitioned to PO abx. Ultimately he became unresponsive and hypotensive and rapid response performed revealing abnl labs and dx with GIB and placed in ICU. Labs (last 24 hrs) Laboratory Tests 10/03/20 05:16: White Blood Count 10.5, Red Blood Count 4.60, Hemoglobin 12.5L, Hematocrit 40, Mean Corpuscular Volume 87, Mean Corpuscular Hemoglobin 27, Mean Corpuscular Hemoglobin Concent 31L, Red Cell Distribution Width 14.6H, Platelet Count 191, Mean Platelet Volume 10.9, Immature Granulocyte % (Auto) 2, Neutrophils (%) (Auto) 87H, Lymphocytes (%) (Auto) 5L, Monocytes (%) (Auto) 7, Eosinophils (%) (Auto) 0, Basophils (%) (Auto) 0, Neutrophils # (Auto) 9.1H, Lymphocytes # (Auto) 0.5L, Monocytes # (Auto) 0.7, Eosinophils # (Auto) 0.0, Basophils # (Auto) 0.0, Immature Granulocyte # (Auto) 0.2H, Sodium Level 131L, Potassium Level 4.7, Chloride Level 100, Carbon Dioxide Level 24, Anion Gap 7, Blood Urea Nitrogen 45H, Creatinine 1.12, Estimat Glomerular Filtration Rate > 60, BUN/Creatinine Ratio 40, Glucose Level 153H, Calcium Level 8.5, Corrected Calcium 9.5, Total Bilirubin 0.7, Aspartate Amino Transf (AST/SGOT) 13, Alanine Aminotransferase (ALT/SGPT) 33, Alkaline Phosphatase 65, Total Protein 5.8L, Albumin 2.8L 10/04/20 07:16: Glucometer 162H 10/04/20 13:30: Blood Gas Puncture Site R RAD, Blood Gas Patient Temperature 35.7, Arterial Blood pH 7.45H, Arterial Blood Partial Pressure CO2 31L, Arterial Blood Partial Pressure O2 65L, Arterial Blood HCO3 22L, Arterial Blood Total CO2 22.6, Arterial Blood Oxygen Saturation 94, Arterial Blood Base Excess -2.1, Kenji Test YES-POS, Blood Gas Ventilator Setting NO, Blood Gas Inspired Oxygen 7L 10/04/20 13:35: White Blood Count 12.6H, Red Blood Count 3.53L, Hemoglobin 9.7#L, Hematocrit 31L , Mean Corpuscular Volume 87, Mean Corpuscular Hemoglobin 27, Mean Corpuscular Hemoglobin Concent 32, Red Cell Distribution Width 14.8H, Platelet Count 251, Mean Platelet Volume 11.4, Immature Granulocyte % (Auto) 4, Neutrophils (%) (Auto) 88H, Lymphocytes (%) (Auto) 3L, Monocytes (%) (Auto) 5, Eosinophils (%) (Auto) 0, Basophils (%) (Auto) 0, Neutrophils # (Auto) 11.1H, Lymphocytes # (Auto) 0.4L, Monocytes # (Auto) 0.6, Eosinophils # (Auto) 0.0, Basophils # (Auto) 0.0, Immature Granulocyte # (Auto) 0.6H, Sodium Level 130L, Potassium Level 5.3H, Chloride Level 100, Carbon Dioxide Level 22, Anion Gap 8, Blood Urea Nitrogen 88H, Creatinine 1.42H, Estimat Glomerular Filtration Rate 49, BUN/Creatinine Ratio 62, Glucose Level 169H, Calcium Level 7.9L, Corrected Calc ium 9.1, Total Bilirubin 0.7, Aspartate Amino Transf (AST/SGOT) 11, Alanine Aminotransferase (ALT/SGPT) 21, Alkaline Phosphatase 44, Total Protein 5.2L, Albumin 2.5L, Neutrophils % (Manual) 92, Lymphocytes % (Manual) 2, Monocytes % (Manual) 3, Eosinophils % (Manual) 0, Basophils % (Manual) 0, Metamyelocytes % 3, Band Neutrophils 0, Blood Morphology Comment NORMAL, Erythrocyte Sedimentation Rate 38H, D-Dimer 0.83H, Lactic Acid Level 2.44*H, Ferritin 450.8H , Troponin I 0.063H, B-Type Natriuretic Peptide 22.0, Procalcitonin 0.12H 10/04/20 15:25: Urine Color YELLOW, Urine Clarity CLEAR, Urine pH 5.0, Urine Specific [place] >=1.030, Urine Protein NEGATIVE, Urine Glucose (UA) NEGATIVE, Urine Ketones NEGATIVE, Urine Nitrite NEGATIVE, Urine Bilirubin NEGATIVE, Urine Urobilinogen 0.2, Urine Leukocyte Esterase NEGATIVE, Urine RBC (Auto) 2+H, Urine RBC 10-25H, Urine WBC NONE, Urine Squamous Epithelial Cells NONE, Urine Crystals NONE, Urine Bacteria NEGATIVE, Urine Casts NONE, Urine Mucus NEGATIVE, Urine Culture Indicated NO 10/04/20 15:50: Lactic Acid Level 1.99 10/04/20 23:20: Blood Gas Puncture Site LEFT RADIAL, Blood Gas Patient Temperature 35.4, Arterial Blood pH 7.54H, Arterial Blood Partial Pressure CO2 23L, Arterial Blood Partial Pressure O2 144H, Arterial Blood HCO3 20L, Arterial Blood Total CO2 2 0.2L, Arterial Blood Oxygen Saturation 100, Arterial Blood Base Excess -3.1L, Kenji Test POSITIVE, Blood Gas Ventilator Setting NO, Blood Gas Inspired Oxygen 100 10/04/20 23:55: Lactic Acid Level 2.49*H, White Blood Count 14.6H, Red Blood Count 2.91L, Hemoglobin 7.9L, Hematocrit 25L, Mean Corpuscular Volume 87, Mean Corpuscular Hemoglobin 27, Mean Corpuscular Hemoglobin Concent 31L, Red Cell Distribution Width 15.0H, Platelet Count 245, Mean Platelet Volume 11.7, Immature Granulocyte % (Auto) 5, Neutrophils (%) (Auto) 85H, Lymphocytes (%) (Auto) 3L, Monocytes (%) (Auto) 7, Eosinophils (%) (Auto) 0, Basophils (%) (Auto) 0, Neutrophils # (Auto) 12.4H, Lymphocytes # (Auto) 0.5L, Monocytes # (Auto) 1.0, Eosinophils # (Auto) 0.0, Basophils # (Auto) 0.0, Immature Granulocyte # (Auto) 0.8H, Sodium Level 126L, Potassium Level 5.1H, Chloride Level 95L, Carbon Dioxide Level 19L, Anion Gap 12, Blood Urea Nitrogen 116#*H, Creatinine 1.79H, Estimat Glomerular Filtration Rate 38, BUN/Creatinine Ratio 65, Glucose Level 184H, Calcium Level 7.7L, Phosphorus Level 2.8, Magnesium Level 2.1 10/05/20 02:25: Lactic Acid Level 2.40*H 10/05/20 04:27: Lactic Acid Level 2.53*H Microbiology 10/04/20 Blood Culture - Preliminary, Resulted No growth Pending Labs Microbiology Date/Time Source Procedure Growth Status 10/04/20 15:50 Peripheral Lt Ac Blood Culture - Preliminary No growth Resulted 10/04/20 13:35 Peripheral Lt Ac Blood Culture - Preliminary No growth Resulted Laboratory Tests 10/03/20 05:16: White Blood Count 10.5, Red Blood Count 4.60, Hemoglobin 12.5, Hematocrit 40, Mean Corpuscular Volume 87, Mean Corpuscular Hemoglobin 27, Mean Corpuscular Hemoglobin Concent 31, Red Cell Distribution Width 14.6, Platelet Count 191, Mean Platelet Volume 10.9, Immature Granulocyte % (Auto) 2, Neutrophils (%) (Auto) 87, Lymphocytes (%) (Auto) 5, Monocytes (%) (Auto) 7, Eosinophils (%) (Auto) 0, Basophils (%) (Auto) 0, Neutrophils # (Auto) 9.1, Lymphocytes # (Auto) 0.5, Monocytes # (Auto) 0.7, Eosinophils # (Auto) 0.0, Basophils # (Auto) 0.0, Immature Granulocyte # (Auto) 0.2, Sodium Level 131, Potassium Level 4.7, Chloride Level 100, Carbon Dioxide Level 24, Anion Gap 7, Blood Urea Nitrogen 45, Creatinine 1.12, Estimat Glomerular Filtration Rate > 60, BUN/Creatinine Ratio 40, Glucose Level 153, Calcium Level 8.5, Corrected Calcium 9.5, Total Bilirubin 0.7, Aspartate Amino Transf (AST/SGOT) 13, Alanine Aminotransferase (ALT/SGPT) 33, Alkaline Phosphatase 65, Total Protein 5.8, Albumin 2.8 10/04/20 07:16: Glucometer 162 10/04/20 13:30: Blood Gas Puncture Site R RAD, Blood Gas Patient Temperature 35.7, Arterial Blood pH 7.45, Arterial Blood Partial Pressure CO2 31, Arterial Blood Partial Pressure O2 65, Arterial Blood HCO3 22, Arterial Blood Total CO2 22.6, Arterial Blood Oxygen Saturation 94, Arterial Blood Base Excess -2.1, Kenji Test YES-POS, Blood Gas Ventilator Setting NO, Blood Gas Inspired Oxygen 7L 10/04/20 13:35: White Blood Count 12.6, Red Blood Count 3.53, Hemoglobin 9.7, Hematocrit 31, Mean Corpuscular Volume 87, Mean Corpuscular Hemoglobin 27, Mean Corpuscular Hemoglobin Concent 32, Red Cell Distribution Width 14.8, Platelet Count 251, Mean Platelet Volume 11.4, Immature Granulocyte % (Auto) 4, Neutrophils (%) (Auto) 88, Lymphocytes (%) (Auto) 3, Monocytes (%) (Auto) 5, Eosinophils (%) (A uto) 0, Basophils (%) (Auto) 0, Neutrophils # (Auto) 11.1, Lymphocytes # (Auto) 0.4, Monocytes # (Auto) 0.6, Eosinophils # (Auto) 0.0, Basophils # (Auto) 0.0, Immature Granulocyte # (Auto) 0.6, Sodium Level 130, Potassium Level 5.3, Chloride Level 100, Carbon Dioxide Level 22, Anion Gap 8, Blood Urea Nitrogen 88, Creatinine 1.42, Estimat Glomerular Filtration Rate 49, BUN/Creatinine Ratio 62, Glucose Level 169, Calcium Level 7.9, Corrected Calcium 9.1, Total Bilirubin 0.7, Aspartate Amino Transf (AST/SGOT) 11, Alanine Aminotransferase (ALT/SGPT) 21, Alkaline Phosphatase 44, Total Protein 5.2, Albumin 2.5, Neutrophils % (Manual) 92, Lymphocytes % (Manual) 2, Monocytes % (Manual) 3, Eosinophils % (Manual) 0, Basophils % (Manual) 0, Metamyelocytes % 3, Band Neutrophils 0, Blood Morphology Comment NORMAL, Erythrocyte Sedimentation Rate 38, D-Dimer 0.83, Lactic Acid Level 2.44, Ferritin 450.8, Troponin I 0.063, B-Type Natriuretic Peptide 22.0, Procalcitonin 0.12 10/04/20 15:25: Urine Color YELLOW, Urine Clarity CLEAR, Urine pH 5.0, Urine Specific [place] >=1.030, Urine Protein NEGATIVE, Urine Glucose (UA) NEGATIVE, Urine Ketones NEGATIVE, Urine Nitrite NEGATIVE, Urine Bilirubin NEGATIVE, Urine Urobilinogen 0.2, Urine Leukocyte Esterase NEGATIVE, Urine RBC (Auto) 2+, Urine RBC 10-25, Urine WBC NONE, Urine Squamous Epithelial Cells NONE, Urine Crystals NONE, Urine Bacteria NEGATIVE, Urine Casts NONE, Urine Mucus NEGATIVE, Urine Culture Indicated NO 10/04/20 15:50: Lactic Acid Level 1.99 10/04/20 23:20: Blood Gas Puncture Site LEFT RADIAL, Blood Gas Patient Temperature 35.4, Arter ial Blood pH 7.54, Arterial Blood Partial Pressure CO2 23, Arterial Blood Partial Pressure O2 144, Arterial Blood HCO3 20, Arterial Blood Total CO2 20.2, Arterial Blood Oxygen Saturation 100, Arterial Blood Base Excess -3.1, Kenji Test POSITIVE, Blood Gas Ventilator Setting NO, Blood Gas Inspired Oxygen 100 10/04/20 23:55: Lactic Acid Level 2.49, White Blood Count 14.6, Red Blood Count 2.91, Hemoglobin 7.9, Hematocrit 25, Mean Corpuscular Volume 87, Mean Corpuscular Hemoglobin 27, Mean Corpuscular Hemoglobin Concent 31, Red Cell Distribution Width 15.0, Platelet Count 245, Mean Platelet Volume 11.7, Immature Granulocyte % (Auto) 5, Neutrophils (%) (Auto) 85, Lymphocytes (%) (Auto) 3, Monocytes (%) (Auto) 7, Eosinophils (%) (Auto) 0, Basophils (%) (Auto) 0, Neutrophils # (Auto) 12.4, Lymphocytes # (Auto) 0.5, Monocytes # (Auto) 1.0, Eosinophils # (Auto) 0.0, Baso phils # (Auto) 0.0, Immature Granulocyte # (Auto) 0.8, Sodium Level 126, Potassium Level 5.1, Chloride Level 95, Carbon Dioxide Level 19, Anion Gap 12, Blood Urea Nitrogen 116, Creatinine 1.79, Estimat Glomerular Filtration Rate 38, BUN/Creatinine Ratio 65, Glucose Level 184, Calcium Level 7.7, Phosphorus Level 2.8, Magnesium Level 2.1 10/05/20 02:25: Lactic Acid Level 2.40 10/05/20 04:27: Lactic Acid Level 2.53 Discharge Home Medications: Active Scripts Active Reported Vitamin D3 (Cholecalciferol (Vitamin D3)) 25 Mcg Capsule 25 Mcg PO DAILY Excedrin Migraine Caplet (Aspirin/Acetaminophen/Caffeine) 1 Each Tablet 2 Each PO DAILY Tylenol Extra Strength (Acetaminophen) 500 Mg Tablet 1,000 Mg PO HS Vitamin C (Ascorbate Calcium) 500 Mg Tablet 500 Mg PO DAILY Aspirin EC (Aspirin) 81 Mg Tablet.dr 81 Mg PO BID Proair Hfa (Albuterol Sulfate) 1 Puff Puff 2 Puff IH Q4H PRN Metoprolol Succinate 50 Mg Tab.er.24h 50 Mg PO BID Flomax (Tamsulosin HCl) 0.4 Mg Cap 0.4 Mg PO HS Advair 250-50 Diskus (Fluticasone/Salmeterol) 1 Each Blst.w.dev 1 Puff INH BID Hydroxychloroquine Sulfate 200 Mg Tablet 200 Mg PO BID Furosemide 20 Mg Tablet 20 Mg PO 0700,1200 Losartan Potassium 100 Mg Tablet 100 Mg PO HS Instructions to patient/family Please see electronic discharge instructions given to patient. Diagnosis/Problems Diagnosis/Problems (1) COVID-19 (2) Pleural effusion on right (3) SLE (systemic lupus erythematosus related syndrome) (4) Obesity (5) Hypertension (6) Hypoxia (7) Respiratory insufficiency (8) Hypercapnia Clinical Quality Measures DVT/VTE Risk/Contraindication: Risk Factor Score Per Nursin RFS Level Per Nursing on Admit: 4+=Very High ISI HOPSON DO Oct 05, 2020 04:59
[2020-10-05] MEDS ORDERED: LOSARTAN 25 MG (COZAAR) TAB PO SCH (09:00)
--- NOTE | 2020-10-08 08:34 | Therapy Team Discharge Summary ---
Therapy Discharge Summary Discharge Recommendations Date of Discharge 10-04-20 Occupational Therapy Pt. was seen on inpatient rehab unit to gain strength. However, due to decline in medical status, pt. transferred to ICU. Pt. . PT Barytes Grinder Goals Barytes Grinder Goals PT Barytes Grinder Goals Time Frame: Oct 23, 2020 Roll Left to Right (QC): 6 Sit to Lying (QC): 6 Lying-Sitting on Side/Bed(QC): 6 Sit to Stand (QC): 5 Chair/Aze-zu-Dnptt Xfer(QC): 5 Car Transfer (QC): 4 Does the Patient Walk: Yes Walk 10 feet (QC): 5 Walk 10ft-Uneven Surface(QC): 4 Walk 50ft with 2 Turns (QC): 5 Walk 150 ft (QC): 5 Wheel 50 feet with 2 turns (QC: 6 1 Step (curb) (QC): 4 4 Steps (QC): 4 12 Steps (QC): 88 Picking up an Object (QC): 88 OT Barytes Grinder Goals Barytes Grinder Goals Time Frame: Oct 20, 2020 Eating (QC): 6 (not met) Oral Hygiene (QC): 6 (not met) Shower/Bathe Self (QC): 5 (not met) Upper Body Dressing (QC): 6 (not met) Lower Body Dressing (QC): 6 (not met) On/Off Footwear (QC): 6 (not met) Toileting Hygiene (QC): 5 (not met) Toilet/Commode Transfer (QC): 5 (not met) Additional Goals: 1-Demonstrate ADL Tasks, 2-Verbalize Understanding, 3- ImproveStrength/Cristin 1=Demonstrate adherence to instructed precautions during ADL tasks. 2=Patient will verbalize/demonstrate understanding of assistive devices/modifications for ADL. 3=Patient will improve strength/tolerance for activity to enable patient to perform ADL's. BRENDAN PENALOZA OT Oct 08, 2020 08:34
--- NOTE | 2020-10-08 15:32 | Therapy Team Discharge Summary ---
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 Upon evaluation patient performed bed mobility with independence, supine <-> sit SBA, sit <-> stand min assist, transfers CGA, car transfer mod assist, ambulated 15' with a rolling walker with CGA, and propelled a manual WC 120' with SBA. Patient has been performing bed mobility and transfer training, balance and endurance training, functional strengthening. Patient has not met any of his longterm goals because he ended up having medical complications and . Patient will be discharge from PT at this time. 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 Time Frame: Oct 23, 2020 Roll Left to Right (QC): 6 Sit to Lying (QC): 6 Lying-Sitting on Side/Bed(QC): 6 Sit to Stand (QC): 5 Chair/Hqv-av-Jwerd Xfer(QC): 5 Car Transfer (QC): 4 Does the Patient Walk: Yes Walk 10 feet (QC): 5 Walk 10ft-Uneven Surface(QC): 4 Walk 50ft with 2 Turns (QC): 5 Walk 150 ft (QC): 5 Wheel 50 feet with 2 turns (QC: 6 1 Step (curb) (QC): 4 4 Steps (QC): 4 12 Steps (QC): 88 Picking up an Object (QC): 88 OT Long-Term Goals Employment And Claims Aide Goals Time Frame: Oct 20, 2020 Eating (QC): 6 (not met) Oral Hygiene (QC): 6 (not met) Shower/Bathe Self (QC): 5 (not met) Upper Body Dressing (QC): 6 (not met) Lower Body Dressing (QC): 6 (not met) On/Off Footwear (QC): 6 (not met) Toileting Hygiene (QC): 5 (not met) Toilet/Commode Transfer (QC): 5 (not met) Additional Goals: 1-Demonstrate ADL Tasks, 2-Verbalize Understanding, 3- ImproveStrength/Cristin 1=Demonstrate adherence to instructed precautions during ADL tasks. 2=Patient will verbalize/demonstrate understanding of assistive devices/mo difications for ADL. 3=Patient will improve strength/tolerance for activity to enable patient to perform ADL's. TITO SCHMITT PT Oct 08, 2020 15:32
== END 2020-10-04 23:20 | disposition short-term general hospital (02) | DRG 91 ==
LOC: UNDOLOA 10-04 23:53
PROVIDERS: ADMIT Internal Medicine; ATTEND Internal Medicine
DX: G72.81 Critical illness myopathy (principal); J18.9 Pneumonia, unspecified organism; A41.9 Sepsis, unspecified organism; I21.A1 Myocardial infarction type 2; Z68.42 Body mass index [BMI] 45.0-49.9, adult; N17.9 Acute kidney failure, unspecified; K92.2 Gastrointestinal hemorrhage, unspecified; B94.8 Sequelae of other specified infectious and parasitic diseases; E66.9 Obesity, unspecified; N40.1 Benign prostatic hyperplasia with lower urinary tract symptoms; N32.81 Overactive bladder; R32 Unspecified urinary incontinence; E78.00 Pure hypercholesterolemia, unspecified; I10 Essential (primary) hypertension; M32.9 Systemic lupus erythematosus, unspecified; G47.30 Sleep apnea, unspecified; M19.91 Primary osteoarthritis, unspecified site; M21.372 Foot drop, left foot; M21.371 Foot drop, right foot; E87.5 Hyperkalemia; E86.9 Volume depletion, unspecified; D64.9 Anemia, unspecified; H91.90 Unspecified hearing loss, unspecified ear; N50.89 Other specified disorders of the male genital organs; N48.89 Other specified disorders of penis; R60.0 Localized edema; Z79.82 Long term (current) use of aspirin; Z87.891 Personal history of nicotine dependence; Z53.09 Procedure and treatment not carried out because of other contraindication
CPT/HCPCS: 36415; 36600; 71045; 80048; 80053; 81000; 82728; 82805; 82962; 83605; 83735; 83880; 84100; 84145; 84484; 85007; 85025; 85027; 85379; 85652; 87040; 93005; 93306; 94640; 94660

== ENCOUNTER → 2020-10-03 | Day surgery (SDC) | payer MEDICARE ==
[~2020-10-03] MED LIST changes: -ALPRAZolam 0.25 MG (XANAX) TAB PO PRN; -BISACODYL 10 MG SUPP (DULCOLAX) PR PRN; -CALCIUM CARBONATE 500 MG (TUMS) TAB.CHEW PO PRN; -DOCUSATE SODIUM 100 MG (COLACE) CAP PO PRN; -FLEET ENEMA ADULT 1 EA BTL PR PRN; -LACTULOSE SYRUP 10GM/15ML (ENULOSE) 30ML UDC PO PRN; -LOPERAMIDE 2 MG (IMODIUM) TABLET PO PRN; -MELATONIN 3 MG TABLET PO PRN; -ONDANSETRON 4 MG (ZOFRAN) ORAL DISSOLVE TAB PO PRN; -diphenhydrAMINE 25 MG TAB (BENADRYL) PO PRN; -guaiFENesin/CODEINE (ROBITUSSIN AC) 10ML UDC PO PRN
--- NOTE | 2020-10-03 11:46 | OPERATIVE REPORT ---
DATE OF SERVICE: 10/03/2020 PREOPERATIVE DIAGNOSES: BPH and incontinence. POSTOPERATIVE DIAGNOSES: BPH and incontinence. OPERATION PERFORMED: Cystoscopy. SURGEON: Juan Carlos Bettencourt MD ANESTHESIA: Local. COMPLICATIONS: None. DESCRIPTION OF PROCEDURE: With the patient supine in his bed, genitalia were prepped and draped in the usual sterile fashion. I attempted to do a cystoscopy and the penis was retracted all the way into the body of the patient sounded by that massive chronic edema of the genitalia, the abdomen and thighs. I inserted the cystoscope trying to find the glans visually and the meatus. Again, I was unable to do so, I discontinued further attempt. I had a discussion with the patient. The patient is voiding and emptying well except for the incontinence. His postvoid residual yesterday were . He has been like this for at least 2 years. He does not mind incontinence. I told him if I put him on anticholinergic, it may cause retention then will have problem try to put catheter in him, so we elected to leave it as such and the patient is okay with that and I will see him on a p.r.n. basis. Job ID: [id number] DocumentID: [id number] Dictated Date: 10/03/2020 10:13:01 Squaring Machine Operator Date: 10/03/2020 11:45:48 Dictated By: JUAN CARLOS BETTENCOURT MD
== END ==
LOC: SDC 08:04
PROVIDERS: ATTEND Urology
DX: N40.0 Benign prostatic hyperplasia without lower urinary tract symptoms (principal); R32 Unspecified urinary incontinence

== ENCOUNTER 2020-10-04 23:30 | Inpatient (IN) | payer MEDICARE ==
[~2020-10-04] VITALS: Ht 182 cm; Wt 177.0 kg
[2020-10-04 23:30] VITALS: BP 146/45
--- NOTE | 2020-10-04 23:30 | NUR ---
Patient received via bed (and on Bipap) from 2nd floor Rehab after Rapid Response was called for lethargy, diaphoresis and unresponsiveness. Placed on classroom monitor. Patient currenly alert, follows commands. Remains diaphoretic, cool and clammy. BP wavering from 160's/100's to 70's/40's.
[2020-10-04 23:35] VITALS: BP 146/45
[2020-10-04 23:45] VITALS: BP 85/44
[2020-10-05] VITALS (15 sets, daily range): BP systolic 77–134; BP diastolic 30–96
[2020-10-05] MEDS ORDERED: NS IV 1000 ML 1,000 ML IV SCH (00:45)
[2020-10-05] MEDS ORDERED: VANCOMYCIN INJECTION 1,000 MG in NS (IVPB) 250 ML IV SCH (05:15)
[2020-10-05] MEDS ORDERED: NS IV 500 ML 500 ML IV SCH (05:15)
--- NOTE | 2020-10-05 05:19 | History & Physical-Hospitalist ---
History of Present Illness Date Seen 10/05/20 Attending Physician Stefany Elliott DO PCP No,Local Physician Referring Physician Date of Admission Oct 04, 2020 at 23:30 Home Medications & Allergies Home Medications Reviewed patient Home Medication Reconciliation performed by pharmacy medication reconciliations hazardous materials waste technician and/or nursing. Patients Allergies have been reviewed. Allergies Allergies Coded Allergies No Allergy Information Available (Jpvydsaepp81/24/20) Past Cdknmpm-Frqbqr-Gqsoll Hx Past Medical History Cardiac: High Cholesterol, Hypertension Genitourinary: Benign Prostatic Hyperpl SLE Physical Exam Physical Exam Vital Signs Vital Signs - First Documented 10/04/20 10/04/20 23:30 23:35 Temp 35.6 Pulse 80 Resp 19 Pulse Ox 100 O2 Flow Rate 100.00 Capillary Refill : Height, Weight, BMI Height: '" Weight: lbs. oz. kg; 47.69 BMI Method: Results Results/Procedures Labs Patient resulted labs reviewed. STEFANY ELLIOTT DO Oct 05, 2020 05:19
--- NOTE | 2020-10-05 05:19 | History & Physical ---
History of Present Illness HPI/Chief Complaint Chief complaint: Altered mental status with hypotension status post rapid response History present illness: This is a 69-year-old white male who was previously at [facility] transferred over to [facility] for CT-guided thoracentesis on the right by Dr. Phipps and Dr. Shelby following Covid pneumonia ultimately recovered enough to go to inpatient rehab who began having more more hypotensive episodes when up to the commode and working with therapy yesterday who underwent a septic work-up only revealing slightly elevated procalcitonin but mild anemia with elevated creatinine. Dr. Zavala consulted echocardiogram completed troponin was slightly elevated the patient was monitored closely. Patient ultimately required a rapid response due to altered mental status with hypotension ultimately transferred up to the ICU revealing BUN of 116 consistent with gastrointestinal bleeding without melena or hematochezia yet to appear. Dr. Bhandari was consulted for presumptive GI bleeding. Patient was given 2 units of blood in addition to IV fluids for hypotension. I did speak with his and updated her on the critical situation and we would do everything we could to help him. He is still on antibiotics but last dose of Eliquis was yesterday at 2130 and the last Lovenox dose was yesterday morning at 0730. Source: patient, RN/MD, old records Exam Limitations: clinical condition Date Seen 10/05/20 Time Seen by a Provider: 11:00 Attending Physician Stefany Hopson DO PCP No,Local Physician Referring Physician Date of Admission Oct 04, 2020 at 23:30 Home Medications & Allergies Home Medications Reviewed patient Home Medication Reconciliation performed by pharmacy medication reconciliations lead maintenance technician and/or nursing. Patients Allergies have been reviewed. Allergies Allergies Coded Allergies No Allergy Information Available ([id number]/24/20) Past Kzahrsn-Okxcvm-Tqxdvu Hx Past Med/Social Hx: Reviewed Nursing Past Med/Soc Hx, Reviewed and Corrections made Patient Social History Marrital Status: Employed/Student: retired Smoking Status: Former Smoker Past Medical History Respiratory: COPD, Pneumonia, Sleep Apnea Currently Using CPAP: Yes Currently Using BIPAP: No Cardiac: High Cholesterol, Hypertension Genitourinary: Benign Prostatic Hyperpl SLE Review of Systems Constitutional: see HPI, dizziness, malaise, weakness Physical Exam Physical Exam Vital Signs Vital Signs - First Documented 10/04/20 23:30 Temp 35.6 Pulse 83 Resp 21 B/P (MAP) 146/45 (78) Pulse Ox 91 O2 Delivery NIV Bilevel O2 Flow Rate 40.00 FiO2 40 Capillary Refill : Height, Weight, BMI Height: '" Weight: lbs. oz. kg; 47.69 BMI Method: General Appearance: Chronically ill, Obese Respiratory: Lungs Clear, Normal Breath Sounds, No Respiratory Distress Cardiovascular: Regular Rate, Rhythm, No Edema, No Gallop, No JVD, No Murmur, Normal Peripheral Pulses Neurologic/Psychiatric: Alert, Depressed Affect, Disoriented Results Results/Procedures Labs Laboratory Tests 10/05/20 06:52 Patient resulted labs reviewed. Assessment/Plan Admission Diagnosis Assessment: GI Bleed Severe symptomatic anemia Hypotension due to severe anemia Post COVID 4 weeks ago Right sided thoracentesis last week Current PNA on broad spectrum abx Chronic urinary incontinence SATISH on CPAP Hypoxia since COVID Elevated troponin Elevated lactic acid due to anemia not sepsis Plan: Transfuse Abx empiric in case bacterial PNA present Dr Bhandari appreciated Dr Mendoza consult Updated Admission Status: Inpatient Order (span 2 midnights) Reason for Inpatient Admission: GIB Diagnosis/Problems Diagnosis/Problems (1) GI bleed (2) History of severe acute respiratory syndrome coronavirus 2 (SARS-CoV-2) disease (3) Hypotension (4) Hypovolemia (5) NIKITA (acute kidney injury) (6) Elevated BUN (7) Pleural effusion on right (8) SLE (systemic lupus erythematosus related syndrome) (9) Obesity (10) Hypoxia (11) Respiratory insufficiency (12) Hypercapnia STEFANY HOPSON DO Oct 05, 2020 05:19
--- NOTE | 2020-10-05 05:22 | Pulmonary Consultation ---
History of Present Illness History of Present Illness Date Seen by Provider: Oct 05, 2020 Time Seen by Provider: 05:15 Date of Admission History of Present Illness 69yo with recovering COVID transferred to ICU from rehab secondary to suspected acute GIB and sepsis. Labs and CXR are pending. Surgery is consulted. I discussed pt in depth with Dr. Elliott. Allergies and Home Medications Allergies Coded Allergies: No Allergy Information Available (Unverified , 09/27/20) Home Medications Acetaminophen 500 Mg Tablet, 1,000 MG PO HS, (Reported) Albuterol Sulfate 1 Puff Puff, 2 PUFF IH Q4H PRN for SHORTNESS OF BREATH, (Reported) Ascorbate Calcium 500 Mg Tablet, 500 MG PO DAILY, (Reported) Aspirin 81 Mg Tablet.dr, 81 MG PO BID, (Reported) Aspirin/Acetaminophen/Caffeine 1 Each Tablet, 2 EACH PO DAILY, (Reported) Cholecalciferol (Vitamin D3) 25 Mcg Capsule, 25 MCG PO DAILY, (Reported) Fluticasone/Salmeterol 1 Each Blst.w.dev, 1 PUFF INH BID, (Reported) Furosemide 20 Mg Tablet, 20 MG PO 0700,1200, (Reported) Hydroxychloroquine Sulfate 200 Mg Tablet, 200 MG PO BID, (Reported) Losartan Potassium 100 Mg Tablet, 100 MG PO HS, (Reported) Metoprolol Succinate 50 Mg Tab.er.24h, 50 MG PO BID, (Reported) Tamsulosin HCl 0.4 Mg Cap, 0.4 MG PO HS, (Reported) Past Bniyznm-Jlkuqr-Aadfjx Hx Past Medical History High Cholesterol, Hypertension Benign Prostatic Hyperpl Review of Systems Time Seen by Provider: 05:25 Sepsis Event Evaluation Height, Weight, BMI Height: '" Weight: lbs. oz. kg; 47.69 BMI Method: Exam Exam Vital Signs Date Time Temp Pulse Resp B/P (MAP) Pulse Ox O2 Delivery O2 Flow Rate FiO2 10/05/20 04:31 36.2 10/05/20 03:06 97 22 99 40.00 10/05/20 01:00 81 10/05/20 00:03 79 23 94 40.00 10/04/20 23:35 80 19 100 100.00 10/04/20 23:30 35.6 Height & Weight Height: '" Weight: lbs. oz. kg; 47.69 BMI Method: Assessment/Plan Assessment/Plan COVID 19 -CXR reviwed -Check ABG -Labs pending -Echo - EF 60-65% Pneumonia -Continue Abx -[place] culture Metabolic lactic acidosis -Give a liter bolus of LR then run LR at 150 Acute GIB -Surgery consulted -Monitor Hb -Check CMP -Check coags/DIC panel Acute renal failure with hyperkalemia -repeat labs pending -IVF -Give a liter bolus hyponatremia -monitor SLE Obesity JESSY MAI DO Oct 05, 2020 05:21
[2020-10-05] MEDS ORDERED: LACTATED RINGERS 1,000 ML IV SCH (05:30)
[2020-10-05] MEDS: PANTOPRAZOLE 40 MG (PROTONIX) VIAL IV SCH ×3 (07:02→19:53)
[2020-10-05] MEDS: LACTATED RINGERS 1,000 ML IV SCH ×4 (07:02→23:59)
[2020-10-05] MEDS: PIPERACILLIN/TAZOBACTAM (BULK) 4.5 GM in NS (IVPB) 100 ML IV SCH ×3 (07:03→21:51)
[2020-10-05 07:07] LABS: BASOPHILS % (AUTO) 0 % (0-10); EOSINOPHILS % (AUTO) 0 % (0-10); HEMATOCRIT 24 % (40-54); HEMOGLOBIN 7.4 g/dL (13.3-17.7); LYMPHOCYTES # (AUTO) 0.6 10^3/uL (1.0-4.0); LYMPHOCYTES % (AUTO) 4 % (12-44); MEAN CORPUSCULAR HEMOGLOBIN 27 pg (25-34); MEAN CORPUSCULAR HGB CONC 31 g/dL (32-36); MEAN CORPUSCULAR VOLUME 87 fL (80-99); MEAN PLATELET VOLUME 11.9 fL (9.0-12.2); MONOCYTES % (AUTO) 7 % (0-12); NEUTROPHILS % (AUTO) 82 % (42-75); PLATELET COUNT 268 10^3/uL (130-400); WHITE BLOOD COUNT 14.6 10^3/uL (4.3-11.0)
[2020-10-05 07:17] LABS: ALBUMIN 2.4 GM/DL (3.2-4.5); POTASSIUM 5.4 MMOL/L (3.6-5.0)
[2020-10-05 07:18] LABS: CALCIUM 7.6 MG/DL (8.5-10.1)
[2020-10-05 07:19] LABS: TOTAL PROTEIN 4.4 GM/DL (6.4-8.2)
[2020-10-05 07:21] LABS: BILIRUBIN,TOTAL 0.6 MG/DL (0.1-1.0)
[2020-10-05 07:23] LABS: CREATININE SERUM 1.95 MG/DL (0.60-1.30)
--- NOTE | 2020-10-05 07:33 | Diagnostic Imaging Report ---
INDICATION: Decreased level of consciousness, hypotension. TECHNIQUE: Single view chest 2:03 AM. CORRELATION STUDY: 10/04/2020 FINDINGS: Scattered bilateral pulmonary parenchymal opacities are again demonstrated. Most noticeable at the left lung base. Findings overall generally stable to perhaps slightly more prominent particularly in the right suprahilar region. Heart size and mediastinum are stable. IMPRESSION: 1. Bilateral pulmonary opacities favoring multilobe pneumonia. Findings perhaps slight increased at the left lung base and right suprahilar region. Dictated by: Dictated on workstation # [id number]
--- NOTE | 2020-10-05 08:00 | NUR ---
PT'S CALLED AND NOTIFIED OF PT CONDITION, AND BLOOD CONSENT AND CENTRAL LINE PLACEMENT CONSENT OBTAINED AT THIS TIME.
[2020-10-05 08:16] LABS: FIBRIN DEGRADATION PRODUCTS 0.64 UG/ML (0.00-0.49); INR 1.4 (0.8-1.4); PROTHROMBIN TIME PATIENT 17.2 SEC (12.2-14.7)
[2020-10-05] MEDS: RT-ALBUTEROL INHALER HFA (VENTOLIN HFA) 18 GM IH SCH ×2 (08:40→18:30)
[2020-10-05] MEDS: ADVAIR HFA 115/21 MCG INHALER 8 GM IH SCH ×2 (08:40→18:30)
[2020-10-05] MEDS ORDERED: LACTATED RINGERS 1,000 ML IV ONE (08:45)
[2020-10-05] MEDS ORDERED: RT-ALBUTEROL INHALER HFA (VENTOLIN HFA) 18 GM IH PRN (08:45)
[2020-10-05] MEDS ORDERED: NS IV 500 ML 500 ML ONE (08:49)
[2020-10-05 08:55] LABS: PHOSPHORUS 3.5 MG/DL (2.3-4.7)
[2020-10-05 08:57] LABS: MAGNESIUM 2.1 MG/DL (1.6-2.4)
--- NOTE | 2020-10-05 11:56 | Diagnostic Imaging Report ---
Indication: Line placement. Time of exam: 11:41 AM Correlation is made with prior study earlier same day. Patchy airspace infiltrates bilateral lung branch persist. No significant effusion is seen. There is no pneumothorax. Left-sided line has tip overlying the SVC. Impression: 1. Line placement. No pneumothorax is identified. 2. Bilateral pulmonary infiltrates. Dictated by: Dictated on workstation # [id number]
[2020-10-05 12:52] LABS: BILIRUBIN,URINE NEGATIVE (NEGATIVE); CLARITY,URINE SL CLOUDY; COLOR,URINE YELLOW; GLUCOSE, URINE (UA) NEGATIVE (NEGATIVE); KETONES,URINE NEGATIVE (NEGATIVE); LEUKOCYTE ESTERASE ,URINE NEGATIVE (NEGATIVE); NITRITE,URINE NEGATIVE (NEGATIVE); PROTEIN,URINE NEGATIVE (NEGATIVE)
[2020-10-05 13:08] LABS: BACTERIA,URINE NEGATIVE /HPF; RBC,URINE RARE /HPF; SQUAMOUS EPITHELIAL CELL,UR RARE /HPF; WBC,URINE RARE /HPF
--- NOTE | 2020-10-05 13:21 | CONSULTATION REPORT ---
DATE OF SERVICE: ADMITTING PHYSICIAN: Dr. Elliott. HISTORY OF PRESENT ILLNESS: The patient is a 69-year-old male who was recovering from the COVID-19 acute lung injury and was transferred to inpatient rehabilitation unit. He was found unresponsive and was also found to be anemic. Since being transferred to the ICU, he has been stable. His hemoglobin was found to be 7.4. He does not report any history of gastroesophageal reflux disease and peptic ulcer disease. He also does not state noticing any red blood per rectum nor any dark tarry stools. He has not had a colonoscopy up to this point in his life. Due to his body habitus, it does appear that he does have some level of sleep apnea and COPD. PAST MEDICAL HISTORY: Hypertension, hypercholesterolemia, benign prostatic hypertrophy. PAST SURGICAL HISTORY: None. ALLERGIES: No known drug allergies. MEDICATIONS: Albuterol 2 puffs q.4 hours p.r.n., aspirin 81 mg daily, fluticasone 1 puff b.i.d., furosemide 20 mg daily, hydroxychloroquine 200 mg b.i.d., losartan 100 mg daily, metoprolol 50 mg b.i.d., tamsulosin 0.4 mg daily. SOCIAL HISTORY: Negative smoke, negative alcohol. FAMILY HISTORY: Noncontributory. VITAL SIGNS: Temperature 36.1, blood pressure 90/66, pulse 96, respirations 18, pulse ox 98% on CPAP of 40% FiO2. REVIEW OF SYSTEMS: Well-nourished male currently in no acute distress. He is not experiencing any shortness of breath or difficulty breathing. No chest pain, palpitations, diaphoresis. No nausea, vomiting, no diarrhea, constipation, no red blood per rectum, no dark tarry stools. No fever, chills, no recent inadvertent weight loss. All other review of systems negative. PHYSICAL EXAMINATION: CHEST: Few scattered rales and rhonchi bilaterally. HEART: Regular, no murmurs. EXTREMITIES: +1/3 bilateral lower extremity edema, negative Homans sign. HEENT: No scleral icterus or cervical lymphadenopathy. ABDOMEN: Soft, nontender, nondistended. SKIN: Warm, dry. ASSESSMENT AND PLAN: A 69-year-old male with likely acute respiratory failure requiring CPAP ventilation. He was also found to be anemic with hemoglobin of 7.4. He does not report any classic symptoms of gastroesophageal reflux disease or peptic ulcer disease; however, due to his symptomatic anemia, at some point, once stable we will proceed with a diagnostic EGD and colonoscopy. Job ID: [id number] DocumentID: [id number] Dictated Date: 10/05/2020 13:01:45 Post Graduate Intern Date: 10/05/2020 13:20:30 Dictated By: RAKEL CAST MD
--- NOTE | 2020-10-05 13:43 | OPERATIVE REPORT ---
DATE OF SERVICE: 10/05/2020 ADMITTING PHYSICIAN: Stefany Elliott DO PREOPERATIVE DIAGNOSIS: Symptomatic anemia. POSTOPERATIVE DIAGNOSIS: Symptomatic anemia. PROCEDURE: Placement of left subclavian central venous catheter. SURGEON: Rakel Cast MD. ANESTHESIA: Local. ESTIMATED BLOOD LOSS: Minimal. DISPOSITION: The patient tolerated the procedure well. INDICATIONS: The patient is a 69-year-old male who is recovering from COVID-19 acute lung injury and in inpatient acute rehabilitation. He was found unresponsive and hypoxic and transferred to the ICU. He was also found to be anemic with a hemoglobin of 7.4 and hypotensive. DESCRIPTION OF PROCEDURE: The chest and neck were prepped and draped in standard surgical fashion. A 1% lidocaine was then used to anesthetize overlying skin in the left subclavian region. The left subclavian vein was then cannulated withdrawing of venous blood. The guidewire was then inserted without any resistance. The cannulating needle removed, and a skin incision made using 11 blade. A tract was then created using a venous dilator and through this opening, a triple lumen central venous catheter was placed over the guidewire using Seldinger technique and the guidewire removed. All three ports harpreet venous blood and saline pushed in without any resistance. The catheter was then sutured to the skin using 3-0 silk sutures. Catheter was then cleaned and covered with Op-Site. The patient tolerated the procedure well. We will get a post-procedure chest x-ray. Job ID: [id number] DocumentID: [id number] Dictated Date: 10/05/2020 13:19:33 Conference Director Date: 10/05/2020 13:43:18 Dictated By: RAKEL CAST MD
--- NOTE | 2020-10-05 16:00 | NUR ---
PT'S CALLED AND UPDATED ON PT CONDITION.
--- NOTE | 2020-10-05 16:25 | Consultation-Cardiology ---
HPI-Cardiology Cardiology Consultation: Date of Consultation 10/05/20 Time Seen by a Provider: 15:15 Date of Admission Attending Physician Stefany Elliott DO Admitting Physician No,Local Physician Consulting Physician DARRICK MITCHELL MD,MA, FACP, FACC, [facility] [place], CCDS Physician requesting consult: Dr Elliott HPI: Chief Complaint: Reason for consultation: Postural hypotension, episode of unresponsiveness HPI Mr Calhoun is a 69 yr old male who we was on inpatient rehab and was admitted to ICU last night after an episode of unresponsiveness with posture change. Documented to have low bp with posture change to upright. He reports SOB, which has been present since he was diagnosed with COVID. He does not report cp. He has chronic, exertional shortness of breath. He has chronic bilat LE swelling which has been present for several years. He has chronic, bilateral scrotal swelling that is quite marked and unchanged in the recent past (managed by Dr Leonardo) Review of Systems-Cardiology Review of Systems Constitutional: malaise, tiredness; No weight loss, No weight gain Eyes: No vision change Ears/Nose/Throat: No ear discharge, No nasal drainage, No recent hearing loss Respiratory: As described under HPI Cardiovascular: As described under HPI Gastrointestinal: No diarrhea, No nausea, No vomiting Genitourinary: As described under HPI; No hematuria, No urine frequency changes Musculoskeletal: back pain (chronic) Skin: No rash, No ulcerations Psychiatric/Neurological: As described under HPI; No seizure, No focal weakness Hematologic: No bleeding abnormalities [id number] Hx Patient Social History Alcohol Use: Denies Use Recreational Drug Use: No Smoking Status: Former Smoker Type Used: Cigarettes Recent Foreign Travel: No Recent Infectious Disease Expo: No Hospitalization with Isolation: Denies Physical Abuse Screen: No Sexual Abuse: No Past Medical History PMH As described under Assessment. Family Medical History Family Medical History: He does not provide fam h/o early CAD Allergies and Home Medications Allergies Coded Allergies: No Allergy Information Available (Unverified , 09/27/20) Home Medications Acetaminophen 500 Mg Tablet, 1,000 MG PO HS, (Reported) Albuterol Sulfate 1 Puff Puff, 2 PUFF IH Q4H PRN for SHORTNESS OF BREATH, (Reported) Ascorbate Calcium 500 Mg Tablet, 500 MG PO DAILY, (Reported) Aspirin 81 Mg Tablet.dr, 81 MG PO BID, (Reported) Aspirin/Acetaminophen/Caffeine 1 Each Tablet, 2 EACH PO DAILY, (Reported) Cholecalciferol (Vitamin D3) 25 Mcg Capsule, 25 MCG PO DAILY, (Reported) Fluticasone/Salmeterol 1 Each Blst.w.dev, 1 PUFF INH BID, (Reported) Furosemide 20 Mg Tablet, 20 MG PO 0700,1200, (Reported) Hydroxychloroquine Sulfate 200 Mg Tablet, 200 MG PO BID, (Reported) Losartan Potassium 100 Mg Tablet, 100 MG PO HS, (Reported) Metoprolol Succinate 50 Mg Tab.er.24h, 50 MG PO BID, (Reported) Tamsulosin HCl 0.4 Mg Cap, 0.4 MG PO HS, (Reported) Patient Home Medication List Home Medication List Reviewed: Yes Physical Exam-Cardiology Physical Exam Vital Signs/I&O 10/05/20 10/05/20 10/05/20 10/05/20 04:31 05:00 06:15 07:14 Temp 36.2 Pulse 104 104 103 Resp 18 21 B/P (MAP) 91/55 (67) 96/64 (75) Pulse Ox 98 98 O2 Delivery NIV Bilevel NIV Bilevel O2 Flow Rate 40.00 40.00 10/05/20 10/05/20 10/05/20 10/05/20 07:30 07:36 08:39 09:14 Temp 35.8 36.0 Pulse 99 93 Resp 23 21 B/P (MAP) 83/46 Pulse Ox 98 100 O2 Delivery NIV Bilevel NIV Bilevel O2 Flow Rate 40.00 FiO2 40 10/05/20 10/05/20 10/05/20 10/05/20 09:31 11:06 11:20 12:00 Temp 36.0 Pulse 95 98 105 90 Resp 18 18 22 17 B/P (MAP) 93/47 115/71 87/57 (67) Pulse Ox 100 98 98 99 O2 Delivery NIV Bilevel NIV Bilevel NIV Bilevel O2 Flow Rate 40.00 40.00 FiO2 40 40 10/05/20 10/05/20 10/05/20 10/05/20 12:12 12:27 12:39 13:00 Temp 36.1 36.1 Pulse 96 96 95 92 Resp 18 11 B/P (MAP) 90/57 90/66 113/75 (88) Pulse Ox 98 98 100 O2 Delivery NIV Bilevel NIV Bilevel NIV Bilevel O2 Flow Rate 40.00 FiO2 40 40 10/05/20 10/05/20 10/05/20 10/05/20 14:00 14:36 15:11 15:40 Temp 36.1 Pulse 92 92 96 Resp 13 18 26 B/P (MAP) 134/85 (101) 134/84 Pulse Ox 98 99 96 O2 Delivery NIV Bilevel NIV Bilevel Nasal Cannula O2 Flow Rate 40.00 40.00 2.00 FiO2 40 10/05/20 00:00 Intake Total 100 ml Balance 100 ml Capillary Refill : Less Than 3 SecondsLess Than 3 Seconds Constitutional: well-developed, well-nourished, other (appears mildly confused) HEENT: PERRL, EOMI Neck: carotid pulses are 2 + bilaterally Respiratory: No accessory muscle use; other (fair to good air entry, diminished at the bases) Cardiovascular: regular rate-rhythm, S1 and S2, systolic murmur (soft RAPHAEL at t he cardiac base) Gastrointestinal: No tender; soft; No guarding, No rebound; audible bowel sounds Extremities: other (moderate bilateral leg edema and skin changed suggestive of chronic stasis dermatitis); No clubbing, No cyanosis Neurologic/Psychiatric: other (mildly confused, hard of hearing, seems to be able to move all limbs) Skin: No rash on exposed areas, No ulcerations on exposed areas; other (Bilateral skin changes on the legs that are consistent with stasis dermatitis) Data Review Labs Laboratory Tests 10/05/20 00:39: Glucometer 209H 10/05/20 05:11: Phosphorus Level 3.5, Magnesium Level 2.1 10/05/20 06:30: Stool Occult Blood Immunoassay POSITIVEH 10/05/20 06:52: White Blood Count 14.6H, Red Blood Count 2.74L, Hemoglobin 7.4L, Hematocrit 24L, Mean Corpuscular Volume 87, Mean Corpuscular Hemoglobin 27, Mean Corpuscular Hemoglobin Concent 31L, Red Cell Distribution Width 15.0H, Platelet Count 268, Mean Platelet Volume 11.9, Immature Granulocyte % (Auto) 7, Neutrophils (%) (Auto) 82H, Lymphocytes (%) (Auto) 4L, Monocytes (%) (Auto) 7, Eosinophils (%) (Auto) 0, Basophils (%) (Auto) 0, Neutrophils # (Auto) 12.0H, Lymphocytes # (Auto) 0.6L, Monocytes # (Auto) 1.0, Eosinophils # (Auto) 0.0, Basophils # (Auto) 0.0, Immature Granulocyte # (Auto) 1.0H, Sodium Level 127L, Potassium Level 5.4H, Chloride Level 98, Carbon Dioxide Level 16L, Anion Gap 13, Blood Urea Nitrogen 121*H, Creatinine 1.95H, Estimat Glomerular Filtration Rate 34, BUN/Creatinine Ratio 64, Glucose Level 205H, Calcium Level 7.6L, Corrected Calcium 8.9, Total Bilirubin 0.6, Aspartate Amino Transf (AST/SGOT) 7, Alanine Aminotransferase (ALT/SGPT) 19, Alkaline Phosphatase 38L, Total Protein 4.4L, Albumin 2.4L, Procalcitonin 0.21H 10/05/20 07:30: Prothrombin Time 17.2H, INR Comment 1.4, Activated Partial Thromboplast Time 29, Fibrinogen 254, D-Dimer 0.64H, Lactic Acid Level 2.97*H 10/05/20 11:40: Urine Color YELLOW, Urine Clarity SL CLOUDY, Urine pH 5.0, Urine Specific [place] 1.025H, Urine Protein NEGATIVE, Urine Glucose (UA) NEGATIVE, Urine Ketones NEGATIVE, Urine Nitrite NEGATIVE, Urine Bilirubin NEGATIVE, Urine Urobilinogen 0.2, Urine Leukocyte Esterase NEGATIVE, Urine RBC (Auto) 1+H, Urine RBC RARE, Urine WBC RARE, Urine Squamous Epithelial Cells RARE, Urine Crystals NONE, Urine Bacteria NEGATIVE, Urine Casts NONE, Urine Mucus NEGATIVE, Urine Culture Indicated NO 10/05/20 12:20: Lactic Acid Level 2.03*H 10/05/20 14:35: Lactic Acid Level 1.75 Laboratory Tests 10/05/20 06:52 A/P-Cardiology Assessment/Admission Diagnosis Hypotension likely secondary to volume depletion (probably GI bleed) and probable sepsis GI bleed (stool positive or blood) Unresponsiveness due to hypotension NIKITA 2 likely due to dehydration due to diuretics and/or GI bleed Sepsis of undetermined etiology Echo of 10/04/20: LVEF 60-65%, mild to mod conc LVH, PASP 35-40 mmHg Mildly elevated troponin likely type 2 [place] secondary to hypotension/sepsis H/O COVID (+) Lupus Chronic bilat LE swelling Chronic scrotal edema with urinary retention - Dr. Jorden following Obesity Probable SATISH HTN BPH Discussion and Recomendations iv fluids and blood transfusion Management of sepsis per Medical services Hold antihypertensives for now and re-introduce as indicated/tolerated Management of urinary retention per Dr. Leonardo Hyperkalemia likely due to ac renal insuff/failure. Monitor lab closely Clinical Quality Measures DVT/VTE Risk/Contraindication: Risk Factor Score Per Nursin RFS Level Per Nursing on Admit: 4+=Very High DARRICK MITCHELL MD FACP FACC CCDS Oct 05, 2020 16:25
[2020-10-05] MEDS ORDERED: VANCOMYCIN 1500 MG/NS 500 ML IVPB IV SCH ×2 (17:00)
[2020-10-05 20:11] LABS: HEMOGLOBIN 7.7 g/dL (13.3-17.7)
--- NOTE | 2020-10-05 21:05 | NUR ---
This RN spoke with E-ICU in regards to pt's H&H. This pt had two units transfused earlier today with a change in hgb from 7.4 to 7.7. This pt is a/o x4, BP stable (last reading @ 2100 = 112/59), HR 80's. Pt denies light headedness or dizziness. Will continue to monitor and per E-ICU check H&H with morning labs unless change in condition.
[2020-10-06 01:16] VITALS: BP 91/24
[2020-10-06 02:34] LABS: BASOPHILS % (AUTO) 0 % (0-10); EOSINOPHILS % (AUTO) 0 % (0-10); HEMATOCRIT 21 % (40-54); HEMOGLOBIN 7.1 g/dL (13.3-17.7); LYMPHOCYTES # (AUTO) 0.6 10^3/uL (1.0-4.0); LYMPHOCYTES % (AUTO) 3 % (12-44); MEAN CORPUSCULAR HEMOGLOBIN 29 pg (25-34); MEAN CORPUSCULAR HGB CONC 34 g/dL (32-36); MEAN CORPUSCULAR VOLUME 86 fL (80-99); MEAN PLATELET VOLUME 11.6 fL (9.0-12.2); MONOCYTES # (AUTO) 1.8 10^3/uL (0.0-1.0); MONOCYTES % (AUTO) 10 % (0-12); NEUTROPHILS % (AUTO) 79 % (42-75); PLATELET COUNT 255 10^3/uL (130-400); WHITE BLOOD COUNT 18.9 10^3/uL (4.3-11.0)
[2020-10-06 02:43] VITALS: BP 67/53
[2020-10-06 02:53] LABS: POTASSIUM 5.4 MMOL/L (3.6-5.0)
[2020-10-06 02:55] LABS: CALCIUM 7.5 MG/DL (8.5-10.1)
[2020-10-06 02:59] VITALS: BP 72/51
[2020-10-06 02:59] LABS: CREATININE SERUM 2.48 MG/DL (0.60-1.30)
[2020-10-06] MEDS: NOREPINEPHRINE 4 MG/250 ML 250 ML IV SCH ×9 (04:00→10:07)
--- NOTE | 2020-10-06 04:01 | NUR ---
0220 -- This RN notified E-ICU of patient's blood pressure / Received order to transfuse 1 unit PRBC. 0240 - blood started 344- updated E-ICU on patients worsening hypotension / received order for norepinephrine
--- NOTE | 2020-10-06 05:02 | NUR ---
THIS RN NOTIFIED E-ICU OF THIS PATIENT'S BUN AND CREAT - NO NEW ORDERS RECEIVED
[2020-10-06] MEDS: PIPERACILLIN/TAZOBACTAM (BULK) 4.5 GM in NS (IVPB) 100 ML IV SCH ×3 (05:23→21:02)
[2020-10-06] MEDS: ADVAIR HFA 115/21 MCG INHALER 8 GM IH SCH ×2 (06:29→18:13)
[2020-10-06] MEDS: RT-ALBUTEROL INHALER HFA (VENTOLIN HFA) 18 GM IH SCH ×2 (06:29→18:13)
[2020-10-06 06:30] VITALS: BP 107/76
[2020-10-06 07:02] LABS: HEMOGLOBIN 9.8 g/dL (13.3-17.7)
--- NOTE | 2020-10-06 07:20 | NUR ---
Updated on pt condition, pt now DNR/DNI
--- NOTE | 2020-10-06 07:27 | Progress Note ---
Subjective Date Seen by a Provider: Oct 06, 2020 Time Seen by a Provider: 10:00 Subjective/Events-last exam Patient becoming more complex Updated DNR/DNI UOP decreased Levophed weaning HCO3 14 Elevated creatinine noted Patient on biPAP Very weak Review of Systems General: Fatigue Neurological: Confusion Focused Exam Lactate Level 10/05/20 07:30: Lactic Acid Level 2.97*H 10/05/20 12:20: Lactic Acid Level 2.03*H 10/05/20 14:35: Lactic Acid Level 1.75 Objective Exam Last Set of Vital Signs Vital Signs Date Time Temp Pulse Resp B/P (MAP) Pulse Ox O2 Delivery O2 Flow Rate FiO2 10/06/20 07:17 98 113/80 10/06/20 06:30 27 95 40.00 10/06/20 06:00 NIV Bilevel 10/06/20 02:59 35.2 25 Capillary Refill : Less Than 3 SecondsLess Than 3 Seconds I&O Intake and Output 10/06/20 00:00 Intake Total 4380 ml Output Total 850 ml Balance 3530 ml Intake Oral 625 ml IV Total 3755 ml Output Urine Total 850 ml # Voids 1 # Bowel Movements 2 General: Alert Lungs: Clear to Auscultation Heart: Regular Rate Results Lab Laboratory Tests 10/05/20 07:30: Prothrombin Time 17.2H, INR Comment 1.4, Activated Partial Thromboplast Time 29, Fibrinogen 254, D-Dimer 0.64H, Lactic Acid Level 2.97*H 10/05/20 11:40: Urine Color YELLOW, Urine Clarity SL CLOUDY, Urine pH 5.0, Urine Specific [place] 1.025H, Urine Protein NEGATIVE, Urine Glucose (UA) NEGATIVE, Urine Ketones NEGATIVE, Urine Nitrite NEGATIVE, Urine Bilirubin NEGATIVE, Urine Urobilinogen 0.2, Urine Leukocyte Esterase NEGATIVE, Urine RBC (Auto) 1+H, Urine RBC RARE, Urine WBC RARE, Urine Squamous Epithelial Cells RARE, Urine Crystals NONE, Urine Bacteria NEGATIVE, Urine Casts NONE, Urine Mucus NEGATIVE, Urine Culture Indicated NO 10/05/20 12:20: Lactic Acid Level 2.03*H 10/05/20 14:35: Lactic Acid Level 1.75 10/05/20 20:00: Hemoglobin 7.7L, Hematocrit 23L 10/06/20 02:25: Hemoglobin 7.1L, Hematocrit 21L, White Blood Count 18.9H, Red Blood Count 2.47L, Mean Corpuscular Volume 86, Mean Corpuscular Hemoglobin 29, Mean Corpuscular Hemoglobin Concent 34, Red Cell Distribution Width 14.4, Platelet Count 255, Mean Platelet Volume 11.6, Immature Granulocyte % (Auto) 8, Neutrophils (%) (Auto) 79H, Lymphocytes (%) (Auto) 3L, Monocytes (%) (Auto) 10, Eosinophils (%) (Auto) 0, Basophils (%) (Auto) 0, Neutrophils # (Auto) 15.0H, Lymphocytes # (Auto) 0.6L, Monocytes # (Auto) 1.8H, Eosinophils # (Auto) 0.0, Basophils # (Auto) 0.0, Immature Granulocyte # (Auto) 1.5H, Sodium Level 129L, Potassium Level 5.4H, Chloride Level 101, Carbon Dioxide Level 14L, Anion Gap 14, Blood Urea Nitrogen 142#*H, Creatinine 2.48H, Estimat Glomerular Filtration Rate 26, BUN/Creatinine Ratio 57, Glucose Level 210H, Calcium Level 7.5L, Phosphorus Level 4.0, Magnesium Level 2.0 10/06/20 06:55: Hemoglobin 9.8#L, Hematocrit 29L Microbiology 10/05/20 MRSA Screen - Final, Complete Assessment/Plan Assessment/Plan Assess & Plan/Chief Complaint Assessment: Massive GI Bleed Severe symptomatic anemia Hypotension due to severe anemia Post COVID 4 weeks ago Right sided thoracentesis last week Current PNA on broad spectrum abx Chronic urinary incontinence SATISH on CPAP Hypoxia since COVID Elevated troponin Elevated lactic acid due to anemia not sepsis NIKITA Plan: Transfuse Abx empiric in case bacterial PNA present Dr Bhandari appreciated Dr Mendoza consult Updated 10/06/20: Complexity increasing Updated If can't improve within 24 hours will initiate comfort care Diagnosis/Problems Diagnosis/Problems (1) GI bleed (2) History of severe acute respiratory syndrome coronavirus 2 (SARS-CoV-2) disease (3) Hypotension (4) Hypovolemia (5) NIKITA (acute kidney injury) (6) Elevated BUN (7) Pleural effusion on right (8) SLE (systemic lupus erythematosus related syndrome) (9) Obesity (10) Hypoxia (11) Respiratory insufficiency (12) Hypercapnia Clinical Quality Measures DVT/VTE Risk/Contraindication: Risk Factor Score Per Nursin RFS Level Per Nursing on Admit: 4+=Very High ISI HOPSON DO Oct 06, 2020 07:27
--- NOTE | 2020-10-06 07:30 | NUR ---
Updated Dr. Elliott on pt condition overnight, and pt code status.
[2020-10-06] MEDS: PANTOPRAZOLE 40 MG (PROTONIX) VIAL IV SCH ×2 (07:55→20:01)
[2020-10-06] MEDS: LACTATED RINGERS 1,000 ML IV SCH ×4 (09:18→23:27)
[2020-10-06 09:35] LABS: ABG BASE EXCESS -11.4 MMOL/L (-2.5-2.5); ABG OXYGEN SATURATION 95 % (94-100); ABG PCO2 28 MMHG (35-45); ABG PO2 80 MMHG (79-93); ABG TCO2 14.7 MMOL/L (21.0-31.0)
[2020-10-06 09:38] LABS: ABG PH 7.31 (7.37-7.43); ALLENS TEST POSITIVE; INSPIRED O2 40%; PATIENT TEMP 36.1; VENTILATOR NO
--- NOTE | 2020-10-06 09:43 | NUR ---
Called EICU with critical ABG results, no new orders at this time.
[2020-10-06] MEDS: NOREPINEPHRINE IV SCH ×5 (10:59→22:47)
[2020-10-06] MEDS: NORMAL SALINE IV SCH ×5 (10:59→22:47)
[2020-10-06 11:07] VITALS: BP 135/97
--- NOTE | 2020-10-06 11:37 | Progress Note ---
Subjective Date Seen by a Provider: Oct 06, 2020 Time Seen by a Provider: 11:00 Subjective/Events-last exam on bipap. respiratory status poor. Hb elevation after PRBC appropriate. Focused Exam Lactate Level 10/05/20 07:30: Lactic Acid Level 2.97*H 10/05/20 12:20: Lactic Acid Level 2.03*H 10/05/20 14:35: Lactic Acid Level 1.75 Objective Exam Vital Signs Date Time Temp Pulse Resp B/P (MAP) Pulse Ox O2 Delivery O2 Flow Rate FiO2 10/06/20 11:07 91 21 96 40.00 10/06/20 11:00 96 130/85 (100) 100 NIV Bilevel 40.00 10/06/20 10:07 114/87 10/06/20 10:00 88 21 126/81 (96) 99 NIV Bilevel 40.00 10/06/20 09:53 87 117/95 10/06/20 09:16 105 117/86 10/06/20 09:00 92 21 113/56 (75) 97 NIV Bilevel 40.00 10/06/20 08:35 92 112/82 10/06/20 08:00 90 21 105/84 (91) 97 NIV Bilevel 40.00 10/06/20 07:56 87 87/60 10/06/20 07:45 NIV Bilevel 40 10/06/20 07:17 98 113/80 10/06/20 07:00 105 10/06/20 07:00 105 24 115/72 (86) 96 NIV Bilevel 40.00 10/06/20 06:30 110 27 95 40.00 10/06/20 06:27 98 123/100 10/06/20 06:00 109 22 139/99 (112) 92 NIV Bilevel 40.00 10/06/20 05:57 112 131/92 10/06/20 05:24 93 111/79 10/06/20 05:00 83 20 118/82 (94) 94 NIV Bilevel 40.00 10/06/20 04:35 79 18 126/91 (103) 96 NIV Bilevel 40.00 10/06/20 04:00 70 65/48 10/06/20 04:00 74 39 88/57 (67) 93 NIV Bilevel 40.00 10/06/20 03:00 74 28 72/51 (58) 94 NIV Bilevel 40.00 10/06/20 02:59 35.2 75 26 72/51 72 NIV Bilevel 25 10/06/20 02:43 35.0 73 28 67/53 91 NIV Bilevel 25 10/06/20 02:00 75 25 85/61 (69) 94 NIV Bilevel 40.00 10/06/20 01:16 75 24 94 25.00 10/06/20 01:00 76 27 85/59 (68) 89 NIV Bilevel 40.00 10/06/20 01:00 76 10/06/20 00:00 81 102/54 (70) 96 NIV Bilevel 40.00 10/05/20 23:00 77 11 93/51 (65) 96 NIV Bilevel 40.00 10/05/20 22:00 82 19 97/57 (68) 99 NIV Bilevel 40.00 10/05/20 21:55 82 24 107/66 (76) 98 NIV Bilevel 40.00 10/05/20 21:53 96 26 96 40.00 10/05/20 21:00 85 25 112/59 (74) 95 Nasal Cannula 2.00 10/05/20 21:00 Nasal Cannula 2.00 10/05/20 20:00 88 19 110/72 (85) 94 Nasal Cannula 2.00 10/05/20 19:41 36.1 10/05/20 19:00 98 28 120/62 (73) 95 Nasal Cannula 2.00 10/05/20 19:00 98 10/05/20 18:34 95 3.00 10/05/20 18:31 95 3.00 10/05/20 18:00 85 12 110/73 (85) 95 Nasal Cannula 2.00 10/05/20 17:00 89 23 102/57 (72) 96 Nasal Cannula 2.00 10/05/20 16:00 84 32 117/73 (88) 94 Nasal Cannula 2.00 10/05/20 16:00 36.2 10/05/20 15:40 Nasal Cannula 2.00 10/05/20 15:11 96 26 96 40.00 10/05/20 15:00 94 24 107/78 (88) 99 NIV Bilevel 40.00 10/05/20 14:36 36.1 92 18 134/84 99 NIV Bilevel 40 10/05/20 14:00 92 13 134/85 (101) 98 NIV Bilevel 40.00 10/05/20 13:00 92 11 113/75 (88) 100 NIV Bilevel 40.00 10/05/20 12:39 95 10/05/20 12:27 36.1 96 90/66 98 NIV Bilevel 40 10/05/20 12:12 36.1 96 18 90/57 98 NIV Bilevel 40 10/05/20 12:00 90 17 87/57 (67) 99 NIV Bilevel 40.00 I & O 10/06/20 07:00 Intake Total 4380 ml Output Total 1030 ml Balance 3350 ml Capillary Refill : Less Than 3 SecondsLess Than 3 Seconds General Appearance: Anxious HEENT: PERRL/EOMI Neck: Full Range of Motion Respiratory: Decreased Breath Sounds, Rhonci Cardiovascular: Regular Rate, Rhythm Gastrointestinal: normal bowel sounds, non tender, soft Extremity: Normal Capillary Refill Neurologic/Psychiatric: Alert, Oriented x3 Skin: Normal Color Lymphatic: No Adenopathy Results Lab Laboratory Tests 10/05/20 11:40: Urine Color YELLOW, Urine Clarity SL CLOUDY, Urine pH 5.0, Urine Specific [place] 1.025H, Urine Protein NEGATIVE, Urine Glucose (UA) NEGATIVE, Urine Ketones NEGATIVE, Urine Nitrite NEGATIVE, Urine Bilirubin NEGATIVE, Urine Urobilinogen 0.2, Urine Leukocyte Esterase NEGATIVE, Urine RBC (Auto) 1+H, Urine RBC RARE, Urine WBC RARE, Urine Squamous Epithelial Cells RARE, Urine Crystals NONE, Urine Bacteria NEGATIVE, Urine Casts NONE, Urine Mucus NEGATIVE, Urine Culture Indicated NO 10/05/20 12:20: Lactic Acid Level 2.03*H 10/05/20 14:35: Lactic Acid Level 1.75 10/05/20 20:00: Hemoglobin 7.7L, Hematocrit 23L 10/06/20 02:25: White Blood Count 18.9H, Red Blood Count 2.47L, Hemoglobin 7.1L, Hematocrit 21L, Mean Corpuscular Volume 86, Mean Corpuscular Hemoglobin 29, Mean Corpuscular Hemoglobin Concent 34, Red Cell Distribution Width 14.4, Platelet Count 255, Mean Platelet Volume 11.6, Immature Granulocyte % (Auto) 8, Neutrophils (%) (Auto) 79H, Lymphocytes (%) (Auto) 3L, Monocytes (%) (Auto) 10, Eosinophils (%) (Auto) 0, Basophils (%) (Auto) 0, Neutrophils # (Auto) 15.0H, Lymphocytes # (Auto) 0.6L, Monocytes # (Auto) 1.8H, Eosinophils # (Auto) 0.0, Basophils # (Auto) 0.0, Immature Granulocyte # (Auto) 1.5H, Sodium Level 129L, Potassium Lev el 5.4H, Chloride Level 101, Carbon Dioxide Level 14L, Anion Gap 14, Blood Urea Nitrogen 142#*H, Creatinine 2.48H, Estimat Glomerular Filtration Rate 26, BUN/Creatinine Ratio 57, Glucose Level 210H, Calcium Level 7.5L, Phosphorus Level 4.0, Magnesium Level 2.0 10/06/20 06:55: Hemoglobin 9.8#L, Hematocrit 29L 10/06/20 09:25: Blood Gas Puncture Site RIGHT BRACHIAL, Blood Gas Patient Temperature 36.1, Arterial Blood pH 7.31*L, Arterial Blood Partial Pressure CO2 28L, Arterial Blood Partial Pressure O2 80, Arterial Blood HCO3 14*L, Arterial Blood Total CO2 14.7L, Arterial Blood Oxygen Saturation 95, Arterial Blood Base Excess -11.4L, Kenji Test POSITIVE, Blood Gas Ventilator Setting NO, Blood Gas Inspired Oxygen 40% Microbiology 10/05/20 MRSA Screen - Final, Complete Assessment/Plan Assessment/Plan Assess & Plan/Chief Complaint persistent sx covid lung injury with superimposed COPD/sleep apnea with anemia. will cont with PPI and medical managment. will hold off on EGD until stable. Clinical Quality Measures DVT/VTE Risk/Contraindication: Risk Factor Score Per Nursin RFS Level Per Nursing on Admit: 4+=Very High RAKEL CAST MD Oct 06, 2020 11:37
--- NOTE | 2020-10-06 14:42 | Progress Note - Cardiology ---
Cardiology SOAP Progress Note Subjective: Does not report cp or palp or syncope Notes gen malaise Gets short of breath with mild activity Does not report n/v Objective: I&O/Vital Signs 10/06/20 10/06/20 10/06/20 10/06/20 02:43 02:59 03:00 04:00 Temp 35.0 35.2 Pulse 73 75 74 74 Resp 28 26 28 39 B/P (MAP) 67/53 72/51 72/51 (58) 88/57 (67) Pulse Ox 91 72 94 93 O2 Delivery NIV Bilevel NIV Bilevel NIV Bilevel NIV Bilevel O2 Flow Rate 40.00 40.00 FiO2 25 25 10/06/20 10/06/20 10/06/20 10/06/20 04:00 04:35 05:00 05:24 Pulse 70 79 83 93 Resp 18 20 B/P (MAP) 65/48 126/91 (103) 118/82 (94) 111/79 Pulse Ox 96 94 O2 Delivery NIV Bilevel NIV Bilevel O2 Flow Rate 40.00 40.00 10/06/20 10/06/20 10/06/20 10/06/20 05:57 06:00 06:27 06:30 Pulse 112 109 98 110 Resp 22 27 B/P (MAP) 131/92 139/99 (112) 123/100 Pulse Ox 92 95 O2 Delivery NIV Bilevel O2 Flow Rate 40.00 40.00 10/06/20 10/06/20 10/06/20 10/06/20 07:00 07:00 07:17 07:45 Pulse 105 105 98 Resp 24 B/P (MAP) 115/72 (86) 113/80 Pulse Ox 96 O2 Delivery NIV Bilevel NIV Bilevel O2 Flow Rate 40.00 FiO2 40 10/06/20 10/06/20 10/06/20 10/06/20 07:56 08:00 08:35 09:00 Pulse 87 90 92 92 Resp 21 21 B/P (MAP) 87/60 105/84 (91) 112/82 113/56 (75) Pulse Ox 97 97 O2 Delivery NIV Bilevel NIV Bilevel O2 Flow Rate 40.00 40.00 10/06/20 10/06/20 10/06/20 10/06/20 09:16 09:53 10:00 10:07 Pulse 105 87 88 Resp 21 B/P (MAP) 117/86 117/95 126/81 (96) 114/87 Pulse Ox 99 O2 Delivery NIV Bilevel O2 Flow Rate 40.00 10/06/20 10/06/20 10/06/20 10/06/20 11:00 11:07 12:00 12:03 Temp 36.0 Pulse 96 91 93 Resp 21 B/P (MAP) 130/85 (100) 109/49 (69) Pulse Ox 100 96 100 O2 Delivery NIV Bilevel NIV Bilevel O2 Flow Rate 40.00 40.00 40.00 10/06/20 10/06/20 10/06/20 12:33 12:53 13:00 Pulse 104 98 Resp 25 B/P (MAP) 101/67 (78) Pulse Ox 97 94 O2 Delivery Nasal Cannula Nasal Cannula O2 Flow Rate 4.00 4.00 10/05/20 23:59 Intake Total 3380 ml Output Total 850 ml Balance 2530 ml Constitutional: well-developed, well-nourished, other (appears confused) Respiratory: No accessory muscle use; other (fair to good air entry, diminished at the bases) Cardiovascular: regular rate-rhythm, S1 and S2, systolic murmur (soft RAPHAEL at the cardiac base) Gastrointestional: No tender; soft; No guarding, No rebound; audible bowel sounds Extremities: other (moderate bilateral leg edema and skin changed suggestive of chronic stasis dermatitis); No clubbing, No cyanosis Neurologic/Psychiatric: other (mildly confused, hard of hearing, seems to be able to move all limbs) Skin: No rash on exposed areas, No ulcerations on exposed areas; other (Bilateral skin changes on the legs that are consistent with stasis dermatitis) Results/Procedures: Labs Laboratory Tests 10/05/20 20:00: Hemoglobin 7.7L, Hematocrit 23L 10/06/20 02:25: Hemoglobin 7.1L, Hematocrit 21L, White Blood Count 18.9H, Red Blood Count 2.47L, Mean Corpuscular Volume 86, Mean Corpuscular Hemoglobin 29, Mean Corpuscular Hemoglobin Concent 34, Red Cell Distribution Width 14.4, Platelet Count 255, Mean Platelet Volume 11.6, Immature Granulocyte % (Auto) 8, Neutrophils (%) (Auto) 79H, Lymphocytes (%) (Auto) 3L, Monocytes (%) (Auto) 10, Eosinophils (%) (Auto) 0, Basophils (%) (Auto) 0, Neutrophils # (Auto) 15.0H, Lymphocytes # (Auto) 0.6L, Monocytes # (Auto) 1.8H, Eosinophils # (Auto) 0.0, Basophils # (Auto) 0.0, Immature Granulocyte # (Auto) 1.5H, Sodium Level 129L, Potassium Level 5.4H, Chloride Level 101, Carbon Dioxide Level 14L, Anion Gap 14, Blood Urea Nitrogen 142#*H, Creatinine 2.48H, Estimat Glomerular Filtration Rate 26, BUN/Creatinine Ratio 57, Glucose Level 210H, Calcium Level 7.5L, Phosphorus Level 4.0, Magnesium Level 2.0 10/06/20 06:55: Hemoglobin 9.8#L, Hematocrit 29L 10/06/20 09:25: Blood Gas Puncture Site RIGHT BRACHIAL, Blood Gas Patient Temperature 36.1, Arterial Blood pH 7.31*L, Arterial Blood Partial Pressure CO2 28L, Arterial Blood Partial Pressure O2 80, Arterial Blood HCO3 14*L, Arterial Blood Total CO2 14.7L, Arterial Blood Oxygen Saturation 95, Arterial Blood Base Excess -11.4L, Kenji Test POSITIVE, Blood Gas Ventilator Setting NO, Blood Gas Inspired Oxygen 40% Microbiology 10/05/20 MRSA Screen - Final, Complete A/P: Assessment: Septic and hypovolemic (GI bleed) shock, managed by Dr Elliott Acute renal failure likely due to acute tubular necrosis due to hypotension due to shock, managed by Dr Elliott Echo of 10/04/20: LVEF 60-65%, mild to mod conc LVH, PASP 35-40 mmHg Mildly elevated troponin likely type [address] CT secondary to hypotension/sepsis H/O COVID (+) Chronic bilat LE swelling and stasis dermatitis Chronic scrotal edema and h/o BPH - Dr. Leonardo following Obesity Probable SATISH Plan: Complex management due to multiple comorbidities Consider transfer to a tertiary care facility (Dr Elliott managing) Replace blood and fluids, and correct lytes (Dr Elliott managing) Hold antihypertensives Monitor labs DARRICK MITCHELL MD FACP [facility] Oct 06, 2020 14:42
--- NOTE | 2020-10-06 14:56 | NUR ---
Call placed to to update on pt.
[2020-10-06] MEDS ORDERED: TROUGH ORDER-PHARMACY XX NR (16:00)
--- NOTE | 2020-10-06 16:30 | NUR ---
This RN asked pt if he would like to go on BIPAP, pt refused.
--- NOTE | 2020-10-06 17:56 | NUR ---
Call placed to EICU about pt urine output. Notified physician, No new orders at this time.
[2020-10-06] MEDS ORDERED: NS (IVPB) 250 ML ONE (18:14)
[2020-10-06] MEDS ORDERED: NS 100 ML (IVPB) BAG IV ONE (18:15)
--- NOTE | 2020-10-06 18:21 | NUR ---
This RN and RT asked pt if he would like to go on BIPAP for a while, pt refused.
[2020-10-06] MEDS: LINEZOLID IVPB 300 ML IV SCH (20:02)
--- NOTE | 2020-10-07 01:04 | NUR ---
SUGGESTED MULTIPLE TIMES TO PATIENT TO PUT BIPAP ON. PATIENT STATES THAT HE DOES NOT WANT TO DO BIPAP TONIGHT. O2 SATS BETWEEN 93%-95% ON 4L NC. WILL CONTINUE TO MONITOR.
[2020-10-07] MEDS: NORMAL SALINE IV SCH ×2 (01:56→05:12)
[2020-10-07] MEDS: NOREPINEPHRINE IV SCH ×2 (01:56→05:12)
[2020-10-07 04:17] LABS: BASOPHILS # (AUTO) 0.1 10^3/uL (0.0-0.1); BASOPHILS % (AUTO) 0 % (0-10); EOSINOPHILS % (AUTO) 0 % (0-10); HEMATOCRIT 24 % (40-54); HEMOGLOBIN 8.1 g/dL (13.3-17.7); LYMPHOCYTES # (AUTO) 1.1 10^3/uL (1.0-4.0); LYMPHOCYTES % (AUTO) 3 % (12-44); MEAN CORPUSCULAR HEMOGLOBIN 28 pg (25-34); MEAN CORPUSCULAR HGB CONC 34 g/dL (32-36); MEAN CORPUSCULAR VOLUME 84 fL (80-99); MEAN PLATELET VOLUME 11.7 fL (9.0-12.2); MONOCYTES # (AUTO) 3.3 10^3/uL (0.0-1.0); MONOCYTES % (AUTO) 10 % (0-12); NEUTROPHILS # (AUTO) 24.1 10^3/uL (1.8-7.8); NEUTROPHILS % (AUTO) 75 % (42-75)
[2020-10-07 04:20] LABS: WHITE BLOOD COUNT 32.3 10^3/uL (4.3-11.0)
[2020-10-07 04:37] LABS: POTASSIUM 5.7 MMOL/L (3.6-5.0)
[2020-10-07 04:38] LABS: CALCIUM 7.8 MG/DL (8.5-10.1)
[2020-10-07 04:42] LABS: CREATININE SERUM 3.25 MG/DL (0.60-1.30); PHOSPHORUS 4.7 MG/DL (2.3-4.7)
--- NOTE | 2020-10-07 05:02 | NUR ---
CALLED E-ICU AND REPORTED CRITICAL LAB VALUES. NA+-125, BUN-150, WBC-32.3 AND LOW URINE OUTPUT OF 20ML OF URINE OVER THE PAST TWO HOURS.
[2020-10-07] MEDS: PIPERACILLIN/TAZOBACTAM (BULK) 4.5 GM in NS (IVPB) 100 ML IV SCH (05:10)
[2020-10-07] MEDS ORDERED: POTASSIUM CL 10MEQ/50ML IVPB 50 ML IV SCH (06:00)
[2020-10-07] MEDS ORDERED: MAGNESIUM 1 GM/100 ML IVPB 100 ML IV SCH (06:00)
[2020-10-07] MEDS ORDERED: KCL 20 MEQ TAB (K-DUR) PO SCH (06:00)
[2020-10-07 06:01] LABS: BAND NEUTROPHILS 3 %; BLAST CELLS 1 %; LYMPHOCYTES % (MANUAL) 3 %; MONOCYTES % (MANUAL) 11 %; MYELOCYTES % 1 %; NEUTROPHILS % (MANUAL) 78 %; NUCLEATED RED BLOOD CELLS 3; PLATELET COUNT 387 10^3/uL (130-400)
[2020-10-07 06:02] LABS: MICROCYTOSIS SLIGHT; POLYCHROMASIA SLIGHT; TOXIC GRANULATION/VACUOLAZATIO 2+
--- NOTE | 2020-10-07 07:05 | NUR ---
INFORMED DR. HOPSON OF PATIENT'S CRITICAL LAB VALUES. 0720-CALLED PATIENT'S . VERIFIED [employer]. EXPLAINED PATIENT'S LAB VALUES TO HER AND HOW THAT EFFECTS HIS COURSE OF TREATMENT, UPDATED HER ON PATIENT'S OVERALL CONDITION AND TALKED ABOUT COMFORT CARE. INFORMED HER THAT SHE AND THEIR THREE CHILDREN COULD COME UP TO SEE HIM AND THEN COMFORT CARE COULD BE INITIATED. STATED THAT SHE WOULD "BE THERE SHORTLY" AND THAT SHE HAD BEEN "EXPECTING OUR CALL TO COME SAY GOOD-BYE". INFORMED PATIENT THAT AND CHILDREN WILL BE HERE SOON TO DISCUSS HIS SITUATION WITH HIM.
[2020-10-07] MEDS: PANTOPRAZOLE 40 MG (PROTONIX) VIAL IV SCH (07:49)
[2020-10-07] MEDS: LINEZOLID IVPB 300 ML IV SCH (07:49)
--- NOTE | 2020-10-07 08:00 | NUR ---
Call made to supervisor type disk quality control pastoral care to update on pt status and for someone to do last rights.
--- NOTE | 2020-10-07 08:45 | NUR ---
Family here to visit pt at this time.
--- NOTE | 2020-10-07 08:55 | NUR ---
Pastoral care here at this time with pt and family.
[2020-10-07] MEDS: LACTATED RINGERS 1,000 ML IV SCH (09:15)
[2020-10-07] MEDS ORDERED: morphine INJ 4 MG/ML 1 ML (VIAL/SYRINGE) ONE (09:38)
[2020-10-07] MEDS: morphine INJ 4 MG/ML 1 ML (VIAL/SYRINGE) IVP PRN ×2 (09:45→10:48)
[2020-10-07] MEDS: LORazepam INJ 2 MG/ML (ATIVAN) VIAL IVP PRN ×2 (09:58→10:48)
--- NOTE | 2020-10-07 10:07 | Progress Note ---
Subjective Date Seen by a Provider: Oct 07, 2020 Time Seen by a Provider: 09:30 Subjective/Events-last exam much worse pulmonary status and renal failure. patient made comfort care only. Focused Exam Lactate Level 10/05/20 07:30: Lactic Acid Level 2.97*H 10/05/20 12:20: Lactic Acid Level 2.03*H 10/05/20 14:35: Lactic Acid Level 1.75 Objective Exam Vital Signs Date Time Temp Pulse Resp B/P (MAP) Pulse Ox O2 Delivery O2 Flow Rate FiO2 10/07/20 09:00 101 26 103/85 (91) Nasal Cannula 4.00 10/07/20 08:00 100 27 144/99 (114) 96 Nasal Cannula 4.00 10/07/20 07:58 96 Nasal Cannula 4.00 10/07/20 07:00 99 26 158/111 (127) 97 Nasal Cannula 4.00 10/07/20 07:00 104 10/07/20 06:00 107 25 132/79 (96) 96 Nasal Cannula 4.00 10/07/20 05:00 107 27 173/111 (131) 97 Nasal Cannula 4.00 10/07/20 04:00 101 24 136/37 (70) 93 Nasal Cannula 4.00 10/07/20 03:00 106 27 121/81 (94) 98 Nasal Cannula 4.00 10/07/20 02:00 103 28 156/90 (112) 98 Nasal Cannula 4.00 10/07/20 01:33 96 3.00 10/07/20 01:00 113 23 167/111 (129) 96 Nasal Cannula 4.00 10/07/20 01:00 112 10/07/20 00:00 35.8 10/07/20 00:00 110 27 161/101 (121) 97 Nasal Cannula 4.00 10/06/20 23:00 105 26 86/69 (75) 96 Nasal Cannula 4.00 10/06/20 22:00 112 26 99/39 (59) 96 Nasal Cannula 4.00 10/06/20 21:19 97 3.00 10/06/20 21:00 109 22 136/93 (107) 97 Nasal Cannula 4.00 10/06/20 21:00 94 Nasal Cannula 4.00 10/06/20 20:00 99 22 90/77 (81) 96 Nasal Cannula 4.00 10/06/20 20:00 35.7 10/06/20 19:00 99 92/77 (82) 96 Nasal Cannula 4.00 10/06/20 19:00 102 10/06/20 18:15 96 4.00 10/06/20 18:14 96 4.00 10/06/20 18:00 104 103/76 (85) 96 Nasal Cannula 4.00 10/06/20 17:00 99 105/61 (76) 98 Nasal Cannula 4.00 10/06/20 16:00 103 114/64 (81) 97 Nasal Cannula 4.00 10/06/20 15:22 36.1 10/06/20 15:00 106 105/83 (90) 98 Nasal Cannula 4.00 10/06/20 14:00 106 105/88 (94) 94 Nasal Cannula 4.00 10/06/20 13:00 98 25 101/67 (78) 94 Nasal Cannula 4.00 10/06/20 12:53 97 Nasal Cannula 4.00 10/06/20 12:33 104 10/06/20 12:03 36.0 10/06/20 12:00 93 109/49 (69) 100 NIV Bilevel 40.00 10/06/20 11:07 91 21 96 40.00 10/06/20 11:00 96 130/85 (100) 100 NIV Bilevel 40.00 10/06/20 10:07 114/87 I & O 10/07/20 07:00 Intake Total 3950 ml Output Total 570 ml Balance 3380 ml Capillary Refill : Less Than 3 SecondsLess Than 3 Seconds General Appearance: No Apparent Distress Neck: Supple Respiratory: Decreased Breath Sounds, Rhonci Cardiovascular: Bradycardia Gastrointestinal: soft Extremity: Normal Inspection Neurologic/Psychiatric: Other (on morphine gtt) Skin: Normal Color Lymphatic: No Adenopathy Results Lab Laboratory Tests 10/07/20 04:05: White Blood Count 32.3*H, Red Blood Count 2.86L, Hemoglobin 8.1L, Hematocrit 24L , Mean Corpuscular Volume 84, Mean Corpuscular Hemoglobin 28, Mean Corpuscular Hemoglobin Concent 34, Red Cell Distribution Width 14.5, Platelet Count 387, Mean Platelet Volume 11.7, Immature Granulocyte % (Auto) 11, Neutrophils (%) (Auto) 75, Lymphocytes (%) (Auto) 3L, Monocytes (%) (Auto) 10, Eosinophils (%) (Auto) 0, Basophils (%) (Auto) 0, Neutrophils # (Auto) 24.1H, Lymphocytes # (Auto) 1.1, Monocytes # (Auto) 3.3H, Eosinophils # (Auto) 0.0, Basophils # ( Auto) 0.1, Immature Granulocyte # (Auto) 3.7H, Neutrophils % (Manual) 78, Lymphocytes % (Manual) 3, Monocytes % (Manual) 11, Myelocytes % 1, Band Neutrophils 3, Nucleated Red Blood Cells 3, Blast Cells 1, Toxic Granulation 2+, Polychromasia SLIGHT, Basophilic Stippling MODERATE, Microcytosis SLIGHT, Sodium Level 125*L, Potassium Level 5.7H, Chloride Level 98, Carbon Dioxide Level 13L, Anion Gap 14, Blood Urea Nitrogen 150*H, Creatinine 3.25#H, Estimat Glomerular Filtration Rate 19, BUN/Creatinine Ratio 46, Glucose Level 236H, Calcium Level 7.8L, Phosphorus Level 4.7, Magnesium Level 2.0 Microbiology 10/05/20 Blood Culture - Preliminary, Resulted No growth 10/05/20 MRSA Screen - Final, Complete Assessment/Plan Assessment/Plan Assess & Plan/Chief Complaint persistent sx covid lung injury with superimposed COPD/sleep apnea with anemia. pt made comfort care only. Clinical Quality Measures DVT/VTE Risk/Contraindication: Risk Factor Score Per Nursin RFS Level Per Nursing on Admit: 4+=Very High RAKEL CAST MD Oct 07, 2020 10:07
--- NOTE | 2020-10-07 11:44 | Discharge Summary ---
Diagnosis/Chief Complaint Date of Admission Oct 04, 2020 at 23:30 Date of Discharge Discharge Diagnosis Massive GI Bleed Acute renal failure Respiratory failure Recent COVID-19 PNA SATISH SLE Discharge Summary Discharge Physical Examination Allergies: Coded Allergies: No Allergy Information Available (Unverified , 09/27/20) Vitals & I&Os Vital Signs Date Time Temp Pulse Resp B/P (MAP) Pulse Ox O2 Delivery O2 Flow Rate FiO2 10/07/20 09:00 101 26 103/85 (91) Nasal Cannula 4.00 10/07/20 08:00 96 10/07/20 00:00 35.8 10/06/20 07:45 40 Hospital Course Was the Problem List Reviewed?: Yes Patient had a complex but short ICU course after rapid response while on IRF room 225 due to AMS and hypotension. Labs revealed significant deviation from earlier in the day with elevated BUN and elevated creatinine with elevated wbc with hypotension c/w massive GIB. Dr Bhandari consulted but he was too unstable to undergo scopes. Transfusions given with improvement in hgb but elevated creatinine occurred and hypotension recurred so was updated on the prognosis and she made him a DNR/DNI. Overall his status continued to decline even with aggressive care so he was placed on comfort care and family was brought in to be at the bedside and patient was pronounced at 1135am. I had updated the family earlier in the morning at the bedside. Labs (last 24 hrs) Laboratory Tests 10/05/20 00:39: Glucometer 209H 10/05/20 05:11: Phosphorus Level 3.5, Magnesium Level 2.1 10/05/20 06:30: Stool Occult Blood Immunoassay POSITIVEH 10/05/20 06:52: White Blood Count 14.6H, Red Blood Count 2.74L, Hemoglobin 7.4L, Hematocrit 24L, Mean Corpuscular Volume 87, Mean Corpuscular Hemoglobin 27, Mean Corpuscular Hemoglobin Concent 31L, Red Cell Distribution Width 15.0H, Platelet Count 268, Mean Platelet Volume 11.9, Immature Granulocyte % (Auto) 7, Neutrophils (%) (Auto) 82H, Lymphocytes (%) (Auto) 4L, Monocytes (%) (Auto) 7, Eosinophils (%) (Auto) 0, Basophils (%) (Auto) 0, Neutrophils # (Auto) 12.0H, Lymphocytes # (Auto) 0.6L, Monocytes # (Auto) 1.0, Eosinophils # (Auto) 0.0, Basophils # (Auto) 0.0, Immature Granulocyte # (Auto) 1.0H, Sodium Level 127L, Potassium Level 5.4H, Chloride Level 98, Carbon Dioxide Level 16L, Anion Gap 13, Blood Urea Nitrogen 121*H, Creatinine 1.95H, Estimat Glomerular Filtration Rate 34, BUN/Creatinine Ratio 64, Glucose Level 205H, Calcium Level 7.6L, Corrected Calcium 8.9, Total Bilirubin 0.6, Aspartate Amino Transf (AST/SGOT) 7, Alanine Aminotransferase (ALT/SGPT) 19, Alkaline Phosphatase 38L, Total Protein 4.4L, Albumin 2.4L, Procalcitonin 0.21H 10/05/20 07:30: Prothrombin Time 17.2H, INR Comment 1.4, Activated Partial Thromboplast Time 29, Fibrinogen 254, D-Dimer 0.64H, Lactic Acid Level 2.97*H 10/05/20 11:40: Urine Color YELLOW, Urine Clarity SL CLOUDY, Urine pH 5.0, Urine Specific [place] 1.025H, Urine Protein NEGATIVE, Urine Glucose (UA) NEGATIVE, Urine Ketones NEGATIVE, Urine Nitrite NEGATIVE, Urine Bilirubin NEGATIVE, Urine Urobilinogen 0.2, Urine Leukocyte Esterase NEGATIVE, Urine RBC (Auto) 1+H, Urine RBC RARE, Urine WBC RARE, Urine Squamous Epithelial Cells RARE, Urine Crystals NONE, Urine Bacteria NEGATIVE, Urine Casts NONE, Urine Mucus NEGATIVE, Urine Culture Indicated NO 10/05/20 12:20: Lactic Acid Level 2.03*H 10/05/20 14:35: Lactic Acid Level 1.75 10/05/20 20:00: Hemoglobin 7.7L, Hematocrit 23L 10/06/20 02:25: Hemoglobin 7.1L, Hematocrit 21L, White Blood Count 18.9H, Red Blood Count 2.47L, Mean Corpuscular Volume 86, Mean Corpuscular Hemoglobin 29, Mean Corpuscular Hemoglobin Concent 34, Red Cell Distribution Width 14.4, Platelet Count 255, Mean Platelet Volume 11.6, Immature Granulocyte % (Auto) 8, Neutrophils (%) (Auto) 79H, Lymphocytes (%) (Auto) 3L, Monocytes (%) (Auto) 10, Eosinophils (%) (Auto) 0, Basophils (%) (Auto) 0, Neutrophils # (Auto) 15.0H, Lymphocytes # (Auto) 0.6L, Monocytes # (Auto) 1.8H, Eosinophils # (Auto) 0.0, Basophils # (Auto) 0.0, Immature Granulocyte # (Auto) 1.5H, Sodium Level 129L, Potassium Level 5.4H, Chloride Level 101, Carbon Dioxide Level 14L, Anion Gap 14, Blood Urea Nitrogen 142#*H, Creatinine 2.48H, Estimat Glomerular Filtration Rate 26, BUN/Creatinine Ratio 57, Glucose Level 210H, Calcium Level 7.5L, Phosphorus Level 4.0, Magnesium Level 2.0 10/06/20 06:55: Hemoglobin 9.8#L, Hematocrit 29L 10/06/20 09:25: Blood Gas Puncture Site RIGHT BRACHIAL, Blood Gas Patient Temperature 36.1, Arterial Blood pH 7.31*L, Arterial Blood Partial Pressure CO2 28L, Arterial Blood Partial Pressure O2 80, Arterial Blood HCO3 14*L, Arterial Blood Total CO2 14.7L, Arterial Blood Oxygen Saturation 95, Arterial Blood Base Excess -11.4L, Kenji Test POSITIVE, Blood Gas Ventilator Setting NO, Blood Gas Inspired Oxygen 40% 10/07/20 04:05: White Blood Count 32.3*H, Red Blood Count 2.86L, Hemoglobin 8.1L, Hematocrit 24L , Mean Corpuscular Volume 84, Mean Corpuscular Hemoglobin 28, Mean Corpuscular Hemoglobin Concent 34, Red Cell Distribution Width 14.5, Platelet Count 387, Mean Platelet Volume 11.7, Immature Granulocyte % (Auto) 11, Neutrophils (%) (Auto) 75, Lymphocytes (%) (Auto) 3L, Monocytes (%) (Auto) 10, Eosinophils (%) (Auto) 0, Basophils (%) (Auto) 0, Neutrophils # (Auto) 24.1H, Lymphocytes # (Auto) 1.1, Monocytes # (Auto) 3.3H, Eosinophils # (Auto) 0.0, Basophils # (Auto) 0.1, Immature Granulocyte # (Auto) 3.7H, Neutrophils % (Manual) 78, Lymphocytes % (Manual) 3, Monocytes % (Manual) 11, Myelocytes % 1, Band Bhavik trophils 3, Nucleated Red Blood Cells 3, Blast Cells 1, Toxic Granulation 2+, Polychromasia SLIGHT, Basophilic Stippling MODERATE, Microcytosis SLIGHT, Sodium Level 125*L, Potassium Level 5.7H, Chloride Level 98, Carbon Dioxide Level 13L, Anion Gap 14, Blood Urea Nitrogen 150*H, Creatinine 3.25#H, Estimat Glomerular Filtration Rate 19, BUN/Creatinine Ratio 46, Glucose Level 236H, Calcium Level 7.8L, Phosphorus Level 4.7, Magnesium Level 2.0 Microbiology 10/05/20 Blood Culture - Preliminary, Resulted No growth 10/05/20 MRSA Screen - Final, Complete Pending Labs Microbiology Date/Time Source Procedure Growth Status 10/05/20 14:35 Peripheral Right Wrist Blood Culture - Preliminary No growth Resulted 10/05/20 12:20 Peripheral Not Otherwise Specified Blood Culture - Preliminary No growth Resulted 10/05/20 07:32 Peripheral Lt Ac Blood Culture - Preliminary No growth Resulted 10/05/20 06:55 Nasal MRSA Screen - Final Complete Laboratory Tests 10/05/20 00:39: Glucometer 209 10/05/20 05:11: Phosphorus Level 3.5, Magnesium Level 2.1 10/05/20 06:30: Stool Occult Blood Immunoassay POSITIVE 10/05/20 06:52: White Blood Count 14.6, Red Blood Count 2.74, Hemoglobin 7.4, Hematocrit 24, Mean Corpuscular Volume 87, Mean Corpuscular Hemoglobin 27, Mean Corpuscular Hemoglobin Concent 31, Red Cell Distribution Width 15.0, Platelet Count 268, Mean Platelet Volume 11.9, Immature Granulocyte % (Auto) 7, Neutrophils (%) (Auto) 82, Lymphocytes (%) (Auto) 4, Monocytes (%) (Auto) 7, Eosinophils (%) (Auto) 0, Basophils (%) (Auto) 0, Neutrophils # (Auto) 12.0, Lymphocytes # (Auto) 0.6, Monocytes # (Auto) 1.0, Eosinophils # (Auto) 0.0, Basophils # (Auto) 0.0, Immature Granulocyte # (Auto) 1.0, Sodium Level 127, Potassium Level 5.4, Chloride Level 98, Carbon Dioxide Level 16, Anion Gap 13, Blood Urea Nitrogen 121, Creatinine 1.95, Estimat Glomerular Filtration Rate 34, BUN/Creatinine Ratio 64, Glucose Level 205, Calcium Level 7.6, Corrected Calcium 8.9, Total Bilirubin 0.6, Aspartate Amino Transf (AST/SGOT) 7, Alanine Aminotransferase (ALT/SGPT) 19, Alkaline Phosphatase 38, Total Protein 4.4, Albumin 2.4, Procalci tonin 0.21 10/05/20 07:30: Prothrombin Time 17.2, INR Comment 1.4, Activated Partial Thromboplast Time 29, Fibrinogen 254, D-Dimer 0.64, Lactic Acid Level 2.97 10/05/20 11:40: Urine Color YELLOW, Urine Clarity SL CLOUDY, Urine pH 5.0, Urine Specific [place] 1.025, Urine Protein NEGATIVE, Urine Glucose (UA) NEGATIVE, Urine Ketones NEGATIVE, Urine Nitrite NEGATIVE, Urine Bilirubin NEGATIVE, Urine Urobilinogen 0.2, Urine Leukocyte Esterase NEGATIVE, Urine RBC (Auto) 1+, Urine RBC RARE, Urine WBC RARE, Urine Squamous Epithelial Cells RARE, Urine Crystals NONE, Urine Bacteria NEGATIVE, Urine Casts NONE, Urine Mucus NEGATIVE, Urine Culture Indicated NO 10/05/20 12:20: Lactic Acid Level 2.03 10/05/20 14:35: Lactic Acid Level 1.75 10/05/20 20:00: Hemoglobin 7.7, Hematocrit 23 10/06/20 02:25: Hemoglobin 7.1, Hematocrit 21, White Blood Count 18.9, Red Blood Count 2.47, Mean Corpuscular Volume 86, Mean Corpuscular Hemoglobin 29, Mean Corpuscular Hemoglobin Concent 34, Red Cell Distribution Width 14.4, Platelet Count 255, Mean Platelet Volume 11.6, Immature Granulocyte % (Auto) 8, Neutrophils (%) (Auto) 79, Lymphocytes (%) (Auto) 3, Monocytes (%) (Auto) 10, Eosinophils (%) (Auto) 0, Basophils (%) (Auto) 0, Neutrophils # (Auto) 15.0, Lymphocytes # (Auto) 0.6, Monocytes # (Auto) 1.8, Eosinophils # (Auto) 0.0, Basophils # (Auto) 0.0, Immature Granulocyte # (Auto) 1.5, Sodium Level 129, Potassium Level 5.4, Chloride Level 101, Carbon Dioxide Level 14, Anion Gap 14, Blood Urea Nitrogen 142, Creatinine 2.48, Estimat Glomerular Filtration Rate 26, BUN/Creatinine Ratio 57, Glucose Level 210, Calcium Level 7.5, Phosphorus Level 4.0, Magnesium Level 2.0 10/06/20 06:55: Hemoglobin 9.8, Hematocrit 29 10/06/20 09:25: Blood Gas Puncture Site RIGHT BRACHIAL, Blood Gas Patient Temperature 36.1, Arterial Blood pH 7.31, Arterial Blood Partial Pressure CO2 28, Arterial Blood Partial Pressure O2 80, Arterial Blood HCO3 14, Arterial Blood Total CO2 14.7, Arterial Blood Oxygen Saturation 95, Arterial Blood Base Excess -11.4, Kenji Test POSITIVE, Blood Gas Ventilator Setting NO, Blood Gas Inspired Oxygen 40% 10/07/20 04:05: White Blood Count 32.3, Red Blood Count 2.86, Hemoglobin 8.1, Hematocrit 24, Mean Corpuscular Volume 84, Mean Corpuscular Hemoglobin 28, Mean Corpuscular Hemoglobin Concent 34, Red Cell Distribution Width 14.5, Platelet Count 387, Mean Platelet Volume 11.7, Immature Granulocyte % (Auto) 11, Neutrophils (%) (Auto) 75, Lymphocytes (%) (Auto) 3, Monocytes (%) (Auto) 10, Eosinophils (%) (Auto) 0, Basophils (%) (Auto) 0, Neutrophils # (Auto) 24.1, Lymphocytes # (Auto) 1.1, Monocytes # (Auto) 3.3, Eosinophils # (Auto) 0.0, Basophils # (Auto) 0.1, Immature Granulocyte # (Auto) 3.7, Neutrophils % (Manual) 78, Lymphocytes % (Manual) 3, Monocytes % (Manual) 11, Myelocytes % 1, Band Neutrophils 3, Nucleated Red Blood Cells 3, Blast Cells 1, Toxic Granulation 2+, Polychromasia SLIGHT, Basophilic Stippling MODERATE, Microcytosis SLIGHT, Sodium Level 125, Potassium Level 5.7, Chloride Level 98, Carbon Dioxide Level 13, Anion Gap 14, Blood Urea Nitrogen 150, Creatinine 3.25, Estimat Glomerular Filtration Rate 19, BUN/Creatinine Ratio 46, Glucose Level 236, Calcium Level 7.8, Phosphorus Level 4.7, Magnesium Level 2.0 Discharge Home Medications: Active Scripts Active Reported Vitamin D3 (Cholecalciferol (Vitamin D3)) 25 Mcg Capsule 25 Mcg PO DAILY Excedrin Migraine Caplet (Aspirin/Acetaminophen/Caffeine) 1 Each Tablet 2 Each PO DAILY Tylenol Extra Strength (Acetaminophen) 500 Mg Tablet 1,000 Mg PO HS Vitamin C (Ascorbate Calcium) 500 Mg Tablet 500 Mg PO DAILY Aspirin EC (Aspirin) 81 Mg Tablet.dr 81 Mg PO BID Proair Hfa (Albuterol Sulfate) 1 Puff Puff 2 Puff IH Q4H PRN Metoprolol Succinate 50 Mg Tab.er.24h 50 Mg PO BID Flomax (Tamsulosin HCl) 0.4 Mg Cap 0.4 Mg PO HS Advair 250-50 Diskus (Fluticasone/Salmeterol) 1 Each Blst.w.dev 1 Puff INH BID Hydroxychloroquine Sulfate 200 Mg Tablet 200 Mg PO BID Furosemide 20 Mg Tablet 20 Mg PO 0700,1200 Losartan Potassium 100 Mg Tablet 100 Mg PO HS Instructions to patient/family Please see electronic discharge instructions given to patient. Diagnosis/Problems Diagnosis/Problems (1) GI bleed (2) History of severe acute respiratory syndrome coronavirus 2 (SARS-CoV-2) disease (3) Hypotension (4) Hypovolemia (5) NIKITA (acute kidney injury) (6) Elevated BUN (7) Pleural effusion on right (8) SLE (systemic lupus erythematosus related syndrome) (9) Obesity (10) Hypoxia (11) Respiratory insufficiency (12) Hypercapnia Clinical Quality Measures DVT/VTE Risk/Contraindication: Risk Factor Score Per Nursin RFS Level Per Nursing on Admit: 4+=Very High ISI HOPSON DO Oct 07, 2020 11:43
--- NOTE | 2020-10-07 12:59 | NUR ---
timeline note: 1135: Family at bedside. This RN and Marcela RN in room, no respirations, and no perceptible heart beat noted. Dr. Elliott notified. 1255: [facility] here at this time.
--- NOTE | 2020-10-09 10:25 | Physician Query Clarification ---
PQ-Conflicting Diagnosis Admission/Discharge Admission Date: Oct 04, 2020 at 23:30 Discharge Date: Oct 07, 2020 at 12:56 Dr. Hopson, The medical record reflects the following clinical scenario: History/Risk Factors: GIB, hypovolemic shock, covid pneumonia, ATN, acute respiratory failure with hypoxia and hypercapnia Clinical Findings: T 35.6, P 83, R 21, WBC 14.6, Lactic acid 297 Treatment: IV Piperacillin, IV Vancomycin Question: Do you agree with the impression of the sepsis per Dr. Mendoza and Dr. Shields. Please document a response in Progress Note or Discharge Summary. 1. Yes 2. No 3. Other, with explanation of clinical findings 4. Clinically undetermined, no explanation for clinical findings. PHYSICIAN RESPONSE Do you agree w/Consulting Dx?: No (just hypovolemia from massive GIB) Please remember a lack of response to the above will prompt a phone page by CDI/Coding staff. In responding to this query, please exercise your independent professional judgment. The purpose of this communication is to more accurately reflect the complexity of your patients condition. The fact that a question is asked does not imply that any particular answer is desired or expected. Thank you for your timely response to this clarification. Requestors name: [email or web address] THIS PHYSICIAN QUERY FORM IS A PERMANENT PART OF THE MEDICAL RECORD KESHA WALDRON Oct 09, 2020 10:25 ISI HOPSON DO Oct 09, 2020 13:05
--- NOTE | 2020-10-09 10:34 | Physician Query Clarification ---
PQ-Uncertain Diagnosis Admission/Discharge Admission Date: Oct 04, 2020 at 23:30 Discharge Date: Oct 07, 2020 at 12:56 Dr. Elliott, The medical record reflects the following clinical scenario: History/Risk Factors: Covid pneumonia, GIB, Acute respiratory failure w/hypoxia and hypercapnia, ATN Clinical Findings: CXR mulilobe pneumonia Treatment: IV Piperacillin, IV Vancomycin Question: Is Covid pneumonia still a clinically valid diagnosis? Hx of covid pneumonia and pneumonia still being treated was documented in the H&P with no further documentation in the medical record. Please document a response in Progress Note or Discharge Summary. 1. Yes, clinically valid, patient is still being treated for covid pneumonia 2. Patient being treated for bacterial pneumonia. Covid pneumonia no longer present.. 3. No pneumonia, condition ruled out. 4. Other, with explanation of clinical findings. 5. Undetermined, no explanation for clinical findings. PHYSICIAN RESPONSE Diagnosis clinically valid: Yes, Conditon resolved Please remember a lack of response to the above will prompt a phone page by CDI/Coding staff. In responding to this query, please exercise your independent professional judgment. The purpose of this communication is to more accurately reflect the complexity of your patients condition. The fact that a question is asked does not imply that any particular answer is desired or expected. Thank you for your timely response to this clarification. Requestors name: [email or web address] THIS PHYSICIAN QUERY FORM IS A PERMANENT PART OF THE MEDICAL RECORD KESHA WALDRON Oct 09, 2020 10:34 ISI ELLIOTT DO Oct 09, 2020 13:05
== END 2020-10-07 12:56 | disposition expired | DRG 377 ==
LOC: ICU 23:30
PROVIDERS: ADMIT Internal Medicine; ATTEND Internal Medicine
PROC: 5A09457 Assistance with Respiratory Ventilation, 24-96 Consecutive Hours, Continuous Positive Airway Pressure (ICD-10-PCS; principal; 2020-10-04)
DX: K92.2 Gastrointestinal hemorrhage, unspecified (principal); U07.1 COVID-19; J12.82 Pneumonia due to coronavirus disease 2019; J96.02 Acute respiratory failure with hypercapnia; J96.01 Acute respiratory failure with hypoxia; N17.0 Acute kidney failure with tubular necrosis; I21.A1 Myocardial infarction type 2; E87.2 Acidosis; E87.1 Hypo-osmolality and hyponatremia; Z68.43 Body mass index [BMI] 50.0-59.9, adult; Z66 Do not resuscitate; Z51.5 Encounter for palliative care; R57.1 Hypovolemic shock; E86.9 Volume depletion, unspecified; D64.9 Anemia, unspecified; G47.33 Obstructive sleep apnea (adult) (pediatric); E87.5 Hyperkalemia; J44.9 Chronic obstructive pulmonary disease, unspecified; I10 Essential (primary) hypertension; N40.1 Benign prostatic hyperplasia with lower urinary tract symptoms; N39.498 Other specified urinary incontinence; R33.8 Other retention of urine; E66.9 Obesity, unspecified; M32.9 Systemic lupus erythematosus, unspecified; E78.00 Pure hypercholesterolemia, unspecified; I87.2 Venous insufficiency (chronic) (peripheral); N50.89 Other specified disorders of the male genital organs; Z87.891 Personal history of nicotine dependence; Z79.82 Long term (current) use of aspirin; Z79.899 Other long term (current) drug therapy; Z73.0 Burn-out
CPT/HCPCS: 36415; 36600; 71045; 80048; 80053; 81000; 82274; 82805; 82962; 83605; 83735; 84100; 84145; 85007; 85014; 85018; 85025; 85027; 85379; 85384; 85610; 85730; 86850; 86900; 86901; 86920; 87040; 87081; 94640; 94660